=== PATIENT | female | born 1955 | race Caucasian/White ===

== ENCOUNTER 2021-04-20 00:14 | Emergency (ER) | payer OTHER ==
--- OUTSIDE RECORDS SUMMARY | 2021-04-20 00:24 | XMS REPORT | Continuity of Care Document ---
:1955 Author Organization [facility] t Address [address] [place] [address] Care Team Providers Name Role Phone JUSTO HAGEN Primary Care Physician Geraldine Mahoney Attending Clinician Unavailable Christian Attending Clinician Unavailable Geraldine Doherty Attending Clinician Unavailable Saba Rutledge Attending Clinician Unavailable Geraldine Wells Admitting Clinician Unavailable Geraldine De Anda Admitting Clinician Unavailable Christian Admitting Clinician Unavailable Payers Payer Name Policy Type Policy Number Effective Date Expiration Date S ource Problems This patient has no known problems. Allergies, Adverse Reactions, Alerts Allergy Allergy Status Severity Reaction(s) Onset Inactive Treating Comm ents Source Name Type Date Date Clinician codeine DA Active AL UNSURE 2020- [facility] [place] [facility] beeswax DA Active AL HAS EPI PEN 2020- [facility] [place] [facility] ranitidi DA Active AL UNSURE 2020- [facility] ne 7- [place] 00:[facility] e [facility] bee DA Active AL RASH 2020- [facility] pollen 7- [place] 00:[facility]: e [facility] wheat FA Active MO UPSET 2020- [facility] STOMACH 7- [place] 00:[facility]: [facility] codeine DA Active AL 2020-0 [facility] [place] 00:[facility]: e [facility] beeswax DA Active AL 2020-0 [facility] [place] 00:[facility]: e [facility] metronid DA Active AL UNKNOWN 2020-0 [facility] azole 7 [place] 00:[facility]: e [facility] ranitidi DA Active AL 2020-0 [facility] ne 09-23 [place] 00:[facility]: [facility] bee DA Active AL 2020-0 [facility] pollen 09-23 [place] 00:[facility]: [facility] wheat FA Active MO 1-0 [facility]- [place] 00:[facility]: [facility] codeine DA Active AL UNSURE 2020-0 [facility] 7-05 [place] 00:[facility]: e [facility] beeswax DA Active AL HAS EPI PEN 1-0 [facility] 7-05 [place] 00:[facility]: e [facility] ranitidi DA Active AL UNSURE 2020-0 [facility] ne 7- [place] 00:[facility]: [facility] bee DA Active AL RASH 2020-0 [facility] pollen 7- [place] 00:[facility]: e [facility] wheat FA Active MO UPSET 2020-0 [facility] STOMACH 7- [place] 00:[facility]: [facility] codeine DA Active AL 1-0 [facility] 7-05 [place] 00:[facility]: e [facility] beeswax DA Active AL 1-0 [facility] 7-05 [place] 00:[facility]: e [facility] metronid DA Active AL UNKNOWN 2020-0 [facility] azole 7- [place] 00:[facility]: e [facility] ranitidi DA Active AL 2020-0 [facility] ne 7- [place] 00:[facility]: e [facility] bee DA Active AL 2020-0 [facility] pollen 7-05 [place] 00[facility]: e [facility] wheat FA Active MO 1-0 [facility] 7-05 [place] 00:[facility]: e [facility] codeine DA Active AL UNSURE 1-0 [facility] 6-08 [place] 00:[facility]: e [facility] beeswax DA Active AL HAS EPI PEN 1-0 [facility] 6-08 [place] 00:[facility]: e [facility] ranitidi DA Active AL UNSURE 2020-0 [facility] ne 6-08 [place] 00:[facility]: e [facility] bee DA Active AL RASH 2020-0 [facility] pollen 6- [place] 00:[facility]: e [facility] wheat FA Active MO UPSET 2020-0 [facility] STOMACH 6- [place] 00:[facility]: e [facility] codeine DA Active AL 2020-0 [facility] 6-08 [place] 00:[facility]: e [facility] beeswax DA Active AL 2020-0 [facility] 6-08 [place] 00:[facility]: e [facility] metronid DA Active AL UNKNOWN 2020-0 [facility] azole 6- [place] 00:00: e [facility] ranitidi DA Active AL 2020-0 [facility] ne 6- [place] 00:[facility]: e [facility] bee DA Active AL 2020-0 [facility] pollen 6- [place] 00:00: e [facility] wheat FA Active MO 2020-0 [facility] 6-08 [place] 00:[facility]: e [facility] codeine DA Active AL 2020-1 [facility] 2-03 [place] 00:00: e [facility] beeswax DA Active AL 2020-1 [facility] 2-03 [place] 00:[facility]: e [facility] metronid DA Active AL UNKNOWN 2020-1 [facility] azole 2-03 [place] 00:00: e [facility] ranitidi DA Active AL 2020-1 [facility] ne 2-03 [place] 00:[facility]: e [facility] bee DA Active AL 2020-1 [facility] pollen 2-03 [place] 00:00: e [facility] wheat FA Active MO 2020-1 [facility] 2-03 [place] 00:00: e [facility] codeine DA Active AL UNSURE 2020-1 [facility] 2-03 [place] 00:00: e [facility] beeswax DA Active AL HAS EPI PEN 2020-1 [facility] 2-03 [place] 00:00: e [facility] ranitidi DA Active AL UNSURE 2020-1 [facility] ne 2-03 [place] 00:00: e [facility] bee DA Active AL RASH 2020-1 [facility] pollen 2-03 [place] 00:[facility]: e [facility] wheat FA Active MO UPSET 2020-1 [facility] STOMACH 2-03 [place] 00:[facility]: e [facility] codeine DA Active AL 2020-1 [facility] 0-20 [place] 00:[facility]: e [facility] beeswax DA Active AL 2020-1 [facility] 0-20 [place] 00:[facility]: e [facility] metronid DA Active AL UNKNOWN 2020-1 [facility] azole 0-20 [place] 00:00: e [facility] ranitidi DA Active AL 2020-1 [facility] ne 0-20 [place] 00:[facility]: e [facility] bee DA Active AL 2020-1 [facility] pollen 0-20 [place] 00:00: e [facility] wheat FA Active MO 2020-1 [facility] 0-20 [place] 00:[facility]: e [facility] codeine DA Active AL UNSURE 2020-1 [facility] 0-20 [place] 00:[facility]: e [facility] beeswax DA Active AL HAS EPI PEN 2020-1 [facility] 0-20 [place] 00:[facility]: e [facility] ranitidi DA Active AL UNSURE 2020-1 [facility] ne 0-20 [place] 00:00: e [facility] bee DA Active AL RASH 2020-1 [facility] pollen 0-20 [place] 00:[facility]: e [facility] wheat FA Active MO UPSET 2020-1 [facility] STOMACH 0-20 [place] 00:00: e [facility] wheat FA Active MO 2020-0 [facility] 4-03 [place] 00:00: e [facility] wheat FA Active MO UPSET 2020-0 [facility] STOMACH 4-03 [place] 00:[facility]: e [facility] codeine DA Active AL 2020-0 [facility] 3-06 [place] 00:00: e [facility] beeswax DA Active AL 2020-0 [facility] 3-06 [place] 00:[facility]: e [facility] metronid DA Active AL UNKNOWN 2020-0 [facility] azole 3-06 [place] 00:00: e [facility] ranitidi DA Active AL 2020-0 [facility] ne 3-06 [place] 00:[facility]: e [facility] bee DA Active AL 2020-0 [facility] pollen 3-06 [place] 00:00: e [facility] codeine DA Active AL UNSURE 2020-0 [facility] 3-06 [place] 00:00: e [facility] beeswax DA Active AL HAS EPI PEN 2020-0 [facility] 3-06 [place] 00:00: e [facility] ranitidi DA Active AL UNSURE 2020-0 [facility] ne 3-06 [place] 00:[facility]: e [facility] bee DA Active AL RASH 2020-0 [facility] pollen 3-06 [place] 00:00: e [facility] metronid DA Active AL 2019-0 [facility] azole 7-16 [facility] 00:00: Helms 00 [facility] ranitidi DA Active AL 2019-0 [facility] ne 7-16 [facility] 00:00: Helms 00 [facility] bee DA Active AL 2019-0 [facility] pollen 7-16 [facility] 00:00: Helms 00 [facility] codeine DA Active AL UNSURE 2019-0 [facility] 7-16 [place] 00:[facility]: e [facility] beeswax DA Active AL HAS EPI PEN 2019-0 [facility] 7-16 [place] 00:00: e [facility] ranitidi DA Active AL UNSURE 2019-0 [facility] ne 7-16 [place] 00:00: e [facility] bee DA Active AL RASH 2019-0 [facility] pollen 7-16 [place] 00:00: e [facility] codeine DA Active AL 2019-0 [facility] 7-16 [facility] 00:00: Helms 00 [facility] beeswax DA Active AL 2019-0 [facility] 7-16 [facility] 00:00: Helms 00 [facility] codeine DA Active AL 2019-0 [facility] 3-15 [place] 00:00: e [facility] beeswax DA Active AL 2019-0 [facility] 3-15 [place] 00:00: e [facility] metronid DA Active AL 2019-0 [facility] azole 3-15 [place] 00:00: e [facility] ranitidi DA Active AL 2019-0 [facility] ne 3-15 [place] 00:00: e [facility] bee DA Active AL 2019-0 [facility] pollen 3-15 [place] 00:00: e [facility] clindamy DA Active AL 2019-0 [facility] petra 3-15 [place] 00:00: e [facility] codeine DA Active AL 2019-0 [facility] 2-07 [place] 00:00: e 00 [facility] beeswax DA Active AL 2019-0 [facility] 2-07 [place] 00:00: e 00 [facility] metronid DA Active AL 2019-0 [facility] azole 2-07 [place] 00:00: e 00 [facility] ranitidi DA Active AL 2019-0 [facility] ne 2-07 [place] 00:00: e [facility] bee DA Active AL 2019-0 [facility] pollen 2- [place] 00:00: e [facility] codeine DA Active AL 2019-0 [facility] 1- [place] 00:00: e 00 [facility] beeswax DA Active AL 2019-0 [facility] - [place] 00:[facility]: e [facility] metronid DA Active AL 2019-0 [facility] azole - [place] 00:[facility]: e [facility] ranitidi DA Active AL 2019-0 [facility] ne 04-01 [place] 00:[facility]: e [facility] bee DA Active AL 2019-0 [facility] pollen 04-01 [place] 00:[facility]: e [facility] Codeine Allergy Active SEE THINGS 2019-[address] [facility] [facility] [place] Ranitidi Allergy Active ORGANS 2019-[address] [facility] ne to SWELLED UP 03-12 [facility] 00:00: Patient e 00 [facility] [place] BEE Allergy Active Severe ANAPHYLATIC 2018-[address] [facility] STINGS to 03-12 [facility] 00:00: Patient e 00 [facility] [place] codeine DA Active AL 2018-1 [facility] 2[facility]03 [place] 00:[facility]: e [facility] beeswax DA Active AL 2018-1 [facility] 2-03 [place] 00:00: e 00 [facility] metronid DA Active AL 2018-1 [facility] azole 2- [place] 00:00: e [facility] ranitidi DA Active AL 2018-1 [facility] ne 2- [place] 00:00: e [facility] bee DA Active AL 2018-1 [facility] pollen 2-03 [place] 00:00: e 00 [facility] codeine DA Active AL 2018-1 [facility] 0-12 [place] 00:00: e 00 [facility] beeswax DA Active AL 2018-1 [facility] 0-12 [place] 00:00: e 00 [facility] metronid DA Active AL 2018-1 [facility] azole 0-12 [place] 00:00: e [facility] ranitidi DA Active AL 2018-1 [facility] ne 0-12 [place] 00:00: e [facility] bee DA Active AL 2018-1 [facility] pollen 0-12 [place] 00:00: e 00 [facility] Not DA Active U 2018-1 [facility] Converte 0-12 [place] 476. 00:00: e See 00 [facility] Not DA Active U 2018-1 [facility] Converte 0-12 [place] 551. 00:00: e See 00 [facility] codeine DA Active AL 2018-1 [facility] 0-06 [place] 00:00: e 00 [facility] beeswax DA Active AL 2018-1 [facility] 0-06 [place] 00:00: e 00 [facility] metronid DA Active AL 2018-1 [facility] azole 0-06 [place] 00:00: e 00 [facility] ranitidi DA Active AL 2018-1 [facility] ne 0-06 [place] 00:00: e [facility] bee DA Active AL 2018-1 [facility] pollen 0-06 [place] 00:00: e 00 [facility] Not DA Active U 2018-1 [facility] Converte 0-06 [place] 476. 00:00: e See 00 [facility] Not DA Active U 2018-1 [facility] Converte 0-06 [place] 551. 00:00: e See 00 [facility] CODEINE DA Active AL 2018-1 [facility] 0-06 [place] 00:[facility]: e [facility] FLAGYL DA Active AL 2018-1 [facility] 0-06 [place] 00:[facility]: e [facility] ZANTAC DA Active AL 2018-1 [facility] 0-06 [place] 00:00: e [facility] codeine DA Active AL 2018-0 [facility] 8-28 [place] 00:00: e 00 [facility] beeswax DA Active AL 2018-0 [facility] 8-28 [place] 00:00: e [facility] ranitidi DA Active AL 2018-0 [facility] ne 8-28 [place] 00:00: e 00 [facility] bee DA Active U 2018-0 [facility] pollen 8-28 [place] 00:00: e 00 [facility] codeine DA Active U 2002-0 [facility] 8-10 [place] 00:00: e 00 [facility] ranitidi DA Active U 2002-0 [facility] ne 8-10 [place] 00:00: e 00 [facility] metronid DA Active U 2002-0 [facility] azole 8-10 [place] 00:00: e 00 [facility] Not DA Active U 2002-0 [facility] Converte 8-10 [place] 476. 00:00: e See 00 [facility] Not DA Active U 2001-0 [facility] Converte 8-10 [facility] d 551. 00:00: e See 00 [facility] CODEINE DA Active U 2001-0 [facility] 8-10 [facility] 00:00: e 00 [facility] FLAGYL DA Active U 2001-0 [facility] 8-10 [facility] 00:00: e 00 [facility] No Known DA Active U 2001- [facility] Contrast 8-10 [facility] Allergie 00:00: e s 00 [facility] No Known DA Active U 2001- [facility] Food 8-10 [facility] Allergie 00:00: e s 00 [facility] No Known DA Active U 2001- [facility] Other 8-10 [facility] Allergie 00:00: e s 00 [facility] Center ZANTAC DA Active U 2001- [facility] 8-10 [facility] 00:00: e 00 [facility] Center Medications This patient has no known medications. Procedures This patient has no known procedures. Encounters Start End Encounter Admission Attending Care Care Encounter Source Date/Time Date/Time Type Type Clinicians Facility Department ID 2021-03-30 Outpatient [facility] [id number] 12[facility]47:57 [id number] 2021-03-30 Outpatient [facility] [id number] 12:37:54 [id number] [facility] 2021-03-30 Outpatient [facility] [id number] 12:35:27 [id number] [facility] 2021-03-30 Outpatient [facility] [id number] 12:27:11 [id number] [facility] 2020-08-01 Inpatient [facility] LFA[facility] [id number] [facility] 13:30:00 [id number] [facility] 2020-02-05 Inpatient [facility] FLAKO [id number] [facility] 06:30:00 [id number] [facility] 2019-12-23 Inpatient [facility] [id number] [facility] 23:35:00 [id number] [facility] 2019-12-12 Inpatient [facility] [id number] [facility] 14:14:00 [id number] [facility] 2019-07-10 Inpatient [facility] FERS [id number] [facility] 18:43:00 [id number] [facility] 2019-06-16 Inpatient [facility] [id number] [facility] 17:01:00 [id number] [facility] 2019-06-06 Inpatient [facility] FLAKO [id number] [facility] 10:14:00 [id number] [facility] 2019-05-18 Inpatient [facility] FLAKO [id number] [facility] 14:02:00 [id number] [facility] 2019-05-09 Inpatient [facility] [id number] [facility] 09:07:00 [id number] [facility] 2020-12-15 2020-12-15 Outpatient Denzel, [facility] USN [id number] [facility] 09:00:00 09:00:00 Luiza [id number] [facility] 2020-12-15 2020-12-15 Outpatient ADRIEL Mahoney, [facility] USN [id number] [facility] 07:54:00 07:54:00 Luiza 41 [facility] 2020-10-15 2020-10-15 Outpatient ADRIEL Mahoney, [facility] USN [id number] [facility] 09:29:00 09:29:00 Luiza [id number] [facility] 2020-10-14 2020-10-14 Inpatient ADRIEL Mahoney, [facility] USN [id number] [facility] 10:00:00 10:00:00 Luiza [id number] [facility] 2020-09-23 2020-09-24 Inpatient EM Christian, [facility] MED [id number] [facility] 10:54:00 15:57:00 Yasmani [id number] [facility] 2020-09-06 2020-09-07 Emergency EM Chas, [facility] FLAKO [id number] [facility] 21:34:00 07:00:00 Kevin [id number] [facility] 2020-08-10 2020-08-10 Emergency EM Aamir, [facility] FLAKO [id number] [facility] 13:16:00 14:31:00 Winston [id number] [facility] 2020-02-17 2020-02-17 Outpatient [facility] [id number] [facility]. 19:30:00 19:30:00 -[id number] Lu s - Patient s [facility] 2018-03-12 2018-03-12 Departed [facility] [id number] [facility]. 10:00:00 12:45:00 Emergency 68 [facility] Results Test Description Test Time Test Comments Results Result Sour e Comments - US TRANSVAGINAL 2020-12-15 NON OB 10:45:00 [facility] 1955 Sex: F * Name: CASSANDRA WHITT FRANCIS [facility] : 1955 Age/S: 65 / F [address] [facility] [id number] Loc: [place] [address] Phys: Luiza Mahoney MD Acct: [id number] Dis Date: Status: REG CLI PHONE #: [phone] Exam Date: 12/15/2020 0934 FAX #: [phone] Reason: EXAMS: CPT CODE: [id number] [place] [address] HISTORY: Pelvic pain. COMPARISON: None available. Location: [facility]. Transabdominal and transvaginal (for better endometrial and ovarian evaluation) pelvic ultrasound with color and Doppler flow and grayscale imaging. Anteverted uterus measured 4.4 x 2.4 x 2.7 cm. Echogenicity and texture is normal. Fluid distended endometrial canal is normal at 2.4 mm. No fibroids. Echogenicity and texture is normal. Visualized cervix is normal. Color Doppler flow in either ovary with normal spectral waveform. Left ovary measured 1 x 0.8 x 0.9 cm. Right ovary measured 2 x 1.2 x 1.8 cm. No free fluid. IMPRESSION: Normal endometrium at 2.4 mm with trace fluid within the endometrial canal. No fibroids. Color and Doppler flow in either ovary with normal spectral waveform. at 1045 Reported and signed by: Aristides Giordano M.D. CC: Luiza Mahoney MD; Amish De Anda MD Technologist: MER BELTRAN RT(R),[facility] Trnmib Date/Time: 12/15/2020 (813) t.[email or web address] Orig Print D/T: S: 12/15/2020 (1046) Probe: [id number] PAGE 1 Signed Report - US PELVIS 2020-12-15 COMPLETE 10:45:00 [facility])Name: DORIAN VALDES CASSANDRAANGELA BLANCO : 1955 Sex: F * Name: CASSANDRA WHITT [facility] : 1955 Age/S: 65 / F [address] [facility] Unit #: [id number] Loc: [place] [address] Phys: Luiza Mahoney MD Acct: [id number] Dis Date: Status: REG CLI PHONE #: [phone] Exam Date: 12/15/2020 0900 FAX #: [phone] Reason: R10.2 EXAMS: CPT CODE: [id number] US PELVIS COMPLETE 63538 HISTORY: Pelvic pain. COMPARISON: None available. Location: [facility]. Transabdominal and transvaginal (for better endometrial and ovarian evaluation) pelvic ultrasound with color and Doppler flow and grayscale imaging. Anteverted uterus measured 4.4 x 2.4 x 2.7 cm. Echogenicity and texture is normal. Fluid distended endometrial canal is normal at 2.4 mm. No fibroids. Echogenicity and texture is normal. Visualized cervix is normal. Color Doppler flow in either ovary with normal spectral waveform. Left ovary measured 1 x 0.8 x 0.9 cm. Right ovary measured 2 x 1.2 x 1.8 cm. No free fluid. IMPRESSION: Normal endometrium at 2.4 mm with trace fluid within the endometrial canal. No fibroids. Color and Doppler flow in either ovary with normal spectral waveform. at 1045 Reported and signed by: Aristides Giordano M.D. CC: Luiza Mahoney MD; Amish De Anda MD Technologist: MER BELTRAN RT(R),[facility] Date/Time: 12/15/2020 (1045) [email or web address] Orig Print D/T: S: 12/15/2020 (1048) Probe: PAGE 1 Signed Report - US PELVIS 2020-10-15 COMPLETE 11:39:00 [facility])Name: CASSANDRA WHITT [facility] : 1955 Sex: F * Name: CASSANDRA WHITT [facility]ANCIS [facility] : 1955 Age/S: 65 / F [address] [facility] Unit #: [id number] Loc: [place] [address] Phys: Luiza Mahoney MD Acct: [id number] Dis Date: Status: REG CLI PHONE #: [phone] Exam Date: 10/15/2020 1037 FAX #: [phone] Reason: R10.2 EXAMS: CPT CODE: [id number] US PELVIS COMPLETE 13555 HISTORY: Pelvic pain. COMPARISON: None available. Location: [facility]. Transabdominal and transvaginal (for better endometrial and ovarian evaluation) pelvic ultrasound with color and Doppler flow and grayscale imaging. Uterus is anteverted and it is measuring 6.3 x 2.2 x 3.2 cm. Echogenicity and texture is normal. Endometrial thickness of 2 mm is normal for postmenopausal woman. No fibroids. Visualized portions of the cervix are normal. Color and Doppler flow in the right ovary. Right ovary measured 1.4 x 0.7 x 1.6 cm with irregular cyst measuring 1 cm. Left ovary measured 1.5 x 0.9 x 1.2 cm. No free fluid. IMPRESSION: Normal endometrium at 2 mm. No fibroids. Unremarkable ovaries with 1 cm cyst with irregular margins on the right which is unusual for postmenopausal woman. No free fluid. at 1139 Reported and signed by: Aristides Giordano M.D. CC: Luiza Mahoney MD; Amish De Anda MD Technologist: VIVIEN SILVA RT(R),[facility] Trnscb Date/Time: 10/15/2020 (1139) [email or web address] Orig Print D/T: S: 10/15/2020 (1142) Probe: PAGE 1 Signed Report - US TRANSVAGINAL 2020-10-15 NON OB 11:39:00 [facility])Name: CASSANDRA WHITT : 1955 Sex: F * Name: CASSANDRA WHITT [facility] : 1955 Age/S: 65 / F [address] [facility] Unit #: [id number] Loc: [place] [address] Phys: Luiza Mahoney MD Acct: [id number] Dis Date: Status: REG CLI PHONE #: [phone] Exam Date: 10/15/2020 1037 FAX #: [phone] Reason: EXAMS: CPT CODE: [id number] [place] [address] HISTORY: Pelvic pain. COMPARISON: None available. Location: [facility]. Transabdominal and transvaginal (for better endometrial and ovarian evaluation) pelvic ultrasound with color and Doppler flow and grayscale imaging. Uterus is anteverted and it is measuring 6.3 x 2.2 x 3.2 cm. Echogenicity and texture is normal. Endometrial thickness of 2 mm is normal for postmenopausal woman. No fibroids. Visualized portions of the cervix are normal. Color and Doppler flow in the right ovary. Right ovary measured 1.4 x 0.7 x 1.6 cm with irregular cyst measuring 1 cm. Left ovary measured 1.5 x 0.9 x 1.2 cm. No free fluid. IMPRESSION: Normal endometrium at 2 mm. No fibroids. Unremarkable ovaries with 1 cm cyst with irregular margins on the right which is unusual for postmenopausal woman. No free fluid. at 1139 Reported and signed by: Aristides Giordano M.D. 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: COLLECT 3 HOURS AFTER PREVIOUS [id number] 22:49:00 Test Item Value Reference Range Interpretation Comments TROPONIN-I (test code = TROPI) 0.013 ng/mL 0-0.045 N COMMENTS TO HOT PRESS OPERATOR: COLLECT 3 HOURS AFTER PREVIOUS SAMPLELIPID PROFILE (CORONARY RISK)2020-09-23 22:48:00 Test Item Value Reference Range Interpretation Comments TRIGLYCERIDES (test 113 mg/dL 20-150 N code = TRIG) CHOLESTEROL (test code 118 mg/dL 0-200 N = CHOL) CHOLESTEROL/HDL RATIO 3.0 RATIO 0-4.9 N RISK A SSOCIATED WITH (test code = CHOLHDL) CHOL/H DL RATIOS: Risk M isiah Female1/[address] RAGE 3.43 3.27AVERAGE 4.97 4.4 [address] RAGE 23.39 11.04 REFERENCE VALUE IS RELATED TO RISK LEVELS ASRECOMMENDED B Y THE ADALBERTO. HEART, MARK G, AND BLOOD INST. HDL CHOLESTEROL (test 32 mg/dL 40-60 L code = HDL) LIPOPROTEIN LDL (test 72 mg/dL 100-129 L ====== code = LDL) ======= Referen ce Interval: mg/dL mmol/L--------- ------- ------- ------O ptimal <100 <2.6Near/above optimal 100-12 9 2.6-3.3Borderl ine High 130-159 3.4-4.1High 160 -189 4.1-4.9Very High >=190 >=4.9========= This LDL result is a direct measurement.=== ====== COVID 19 INHOUSE [id number] 13:22:00 Test Item Value Reference Range Interpretation Comments COVID 19 INHOUSE AG (test code = NEGATIVE NEGATIVE [id number]) BASIC METABOLIC [id number] 12:24:00 Test Item Value Reference Range Interpretation Comments SODIUM (test code = 142 mmol/L 136-145 N NA) POTASSIUM (test code 3.9 mmol/L 3.5-5.1 N = K) CHLORIDE (test code 112.0 mmol/L 98-107 H = CL) CARBON DIOXIDE (test 26.0 mmol/L 21-32 N code = CO2) ANION GAP (test code 7.9 10-20 L = GAP) GLUCOSE (test code = 90 mg/dL 74-106 N GLU) BLOOD UREA NITROGEN 15 mg/dL 7-18 N (test code = BUN) GLOMERULAR > 60 mL/min See_Comment Estimated GFR b y FILTRATION RATE using Modifi ed MDRD (test code = GFR) formula.[facility] kidney disease is defined as eith er kidney damageor GFR <60 mL/min/1.73 m2 for >3 months. [Automated mess age] The system [employer] generated this result transmitted ref erence range: >=60. Th e reference range was not used to int erpret this result as normal/abnormal . CREATININE (test 0.80 mg/dL 0.55-1.02 N Note arechiga ge in code = CREAT) reference rang e due to change in reagent. BUN/CREATININE RATIO 17.9 10-20 N (test code = BUN/CREA) CALCIUM (test code = 9.0 mg/dL 8.5-10.1 N CA) [id number] 12:24:00 Test Item Value Reference Range Interpretation Comments TROPONIN-I (test code = TROPI) 0.011 ng/mL 0-0.045 N - XR CHEST 1 [id number] 11:47:00 [facility]Name: CASSANDRA WHITT : 1955 Sex: F FAX: Stuart Saldivar [phone] [place]: St: REG FAX: Amish Lai MD [phone] Name: CASSANDRA WHITT [facility] : 1955 Age/S: 65/F [address] [facility] Unit #: [id number] L oc: [place] [address] Phys: Stuart Spivey MD Acct: [id number] Dis Date: Status: REG ER PHONE #: [phone] Exam Date: 09/23/2020 1140 FAX #: [phone] Reason: CHEST PAIN EXAMS: CPT CODE: [id number] XR CHEST 1 V 29410 HISTORY: Chest pain. COMPARISON: December 12, 2019. Location: [facility]. No acute infiltrates, effusion or congestion is noted. Hyperinflation.Right [employer] shunt catheter noted again the tip coiled within the left upper quadrant. The cardiacand mediastinal silhouette are within normal limits. IMPRESSION: No acute infiltrates, effusion or congestion. at 114 Reported and signed by: Aristides Giordano M.D. CC: Stuart Spivey MD; Amish De Anda MD Technologist: RT ERICKA(R) Trnscrd Date/Time/By: 09/23/2020 (2175) : By: [email or web address] Orig Print D/T: S: 09/23/2020 (5382) PAGE 1 Signed ReportCBC W/O [id number] 11:36:00 Test Item Value Reference Range Interpretation Comments WHITE BLOOD CELL (test code = 8.3 K/mm3 4.5-12.5 N WBC) RED BLOOD CELL (test code = 4.09 mill/mm3 3.7-5.2 N RBC) HEMOGLOBIN (test code = HGB) 13.7 gram/dL 11.5-15.5 N HEMATOCRIT (test code = HCT) 40.7 % 36.0-46.0 N MEAN CELL VOLUME (test code = 99.5 fL 80-98 H MCV) MEAN CELL HGB (test code = MCH) 33.5 picogram 27.0-33.0 H MEAN CELL HGB CONCETRATION 33.7 gram/dL 33.0-36.0 N (test code = MCHC) RED CELL DISTRIBUTION WIDTH 12.1 % 11.6-16.2 N (test code = RDW) PLATELET COUNT (test code = 233 K/mm3 150-450 N PLT) MEAN PLATELET VOLUME (test code 9.9 fL 6.7-11.0 N = MPV) URINALYSIS [id number] 03:38:00 Test Item Value Reference Range Interpretation Comments UA COLOR (test code = LIGHT YELLOW YELLOW COLU) UA APPEARANCE (test code CLEAR CLEAR = APPU) UA GLUCOSE DIPSTICK (test NEGATIVE mg/dL NEGATIVE code = DGLUU) UA BILIRUBIN DIPSTICK NEGATIVE mg/dL NEGATIVE (test code = BILU) UA KETONE DIPSTICK (test NEGATIVE mg/dL NEGATIVE code = KETU) UA SPECIFIC GRAVITY (test 1.003 1.001-1.035 code = SGU) UA BLOOD DIPSTICK (test Negative mg/dL NEGATIVE code = KELVIN) UA PH DIPSTICK (test code 6.5 5.0-8.0 = LAURA) UA PROTEIN DIPSTICK (test NEGATIVE mg/dL NEGATIVE code = PROU) UA UROBILINIOGEN DIPSTICK Normal mg/dL NEGATIVE (test code = URO) UA NITRITE DIPSTICK (test NEGATIVE NEGATIVE code = LARRY) UA LEUKOCYTE ESTERASE W NEGATIVE Ruchi/uL NEGATIVE REFLEX (test code = LEUUR) UA WBC (test code = WBCU) 0-5 per HPF 0-5 UA RBC (test code = RBCU) 0-2 #/HPF 0-5 UA EPITHELIAL CELLS (test Rare (0-1/hpf) per FEW code = EPIU) HPF UA BACTERIA (test code = FEW #/HPF NONE A BACU) Urine Source? Clean CatchBASIC METABOLIC [id number] 00:52:00 Test Item Value Reference Range Interpretation Comments SODIUM (test code = 134 mmol/L 136-145 L NA) POTASSIUM (test code 3.9 mmol/L 3.5-5.1 N = K) CHLORIDE (test code 103.0 mmol/L 98-107 N = CL) CARBON DIOXIDE (test 24.0 mmol/L 21-32 N code = CO2) ANION GAP (test code 10.9 10-20 N = GAP) GLUCOSE (test code = 102 mg/dL 74-106 N GLU) BLOOD UREA NITROGEN 8 mg/dL 7-18 N (test code = BUN) GLOMERULAR > 60 mL/min See_Comment Estimated GFR b y FILTRATION RATE using Modifi ed MDRD (test code = GFR) formula.Ch ronic kidney disease is defined as eith er kidney damageor GFR <60 mL/min/1.73 m2 for >3 months. [Automated mess age] The system [employer] generated this result transmitted ref erence range: >=60. Th e reference range was not used to int erpret this result as normal/abnormal . CREATININE (test 0.90 mg/dL 0.55-1.02 N Note arechiga ge in code = CREAT) reference rang e due to change in reagent. BUN/CREATININE RATIO 9.1 10-20 L (test code = BUN/CREA) CALCIUM (test code = 9.3 mg/dL 8.5-10.1 N CA) HEPATIC FUNCTION [id number] 00:52:00 Test Item Value Reference Range Interpretation Comments TOTAL PROTEIN (test 6.8 gram/dL 6.4-8.2 N code = PROT) ALBUMIN (test code = 4.0 g/dL 3.4-5.0 N ALB) GLOBULIN (test code = 2.8 gram/dL 2.7-4.2 N GLOB) ALBUMIN/GLOBULIN RATIO 1.4 0.75-1.50 N (test code = A/G) BILIRUBIN TOTAL (test 0.50 mg/dL 0.0-1.0 N code = BILT) BILIRUBIN DIRECT (test 0.20 mg/dL 0.0-0.20 N code = BILD) SGOT/AST (test code = 14 IUnit/L 15-37 L AST) SGPT/ALT (test code = 13 IUnit/L 12-78 N ALT) ALKALINE PHOSPHATASE 141 IUnit/L 45-117 H Note change in TOTAL (test code = reference range due ALKP) to change in reagent. [id number] 00:52:00 Test Item Value Reference Range Interpretation Comments LIPASE (test code = LIP) 27 U/L 12.00-57.00 N [id number] 00:52:00 Test Item Value Reference Range Interpretation Comments TROPONIN-I (test code = TROPI) < 0.006 ng/mL 0-0.045 N CBC W/O [id number] 00:20:00 Test Item Value Reference Range Interpretation Comments WHITE BLOOD CELL (test code = 9.6 K/mm3 4.5-12.5 N WBC) RED BLOOD CELL (test code = 4.28 mill/mm3 3.7-5.2 N RBC) HEMOGLOBIN (test code = HGB) 14.2 gram/dL 11.5-15.5 N HEMATOCRIT (test code = HCT) 41.8 % 36.0-46.0 N MEAN CELL VOLUME (test code = 97.7 fL 80-98 N MCV) MEAN CELL HGB (test code = MCH) 33.2 picogram 27.0-33.0 H MEAN CELL HGB CONCETRATION 34.0 gram/dL 33.0-36.0 N (test code = MCHC) RED CELL DISTRIBUTION WIDTH 11.9 % 11.6-16.2 N (test code = RDW) PLATELET COUNT (test code = 196 K/mm3 150-450 N PLT) MEAN PLATELET VOLUME (test code 9.9 fL 6.7-11.0 N = MPV) - XR FOOT 3 + V [id number] 14:32:00 [facility]Name: CASSANDRA WHITT : 1955 Sex: F FAX: Catie Stephens NP [place]: St: REG FAX: Amish Lai MD [phone] Name: CASSANDRA WHITT [facility] : 1955 Age/S: 64/F [address] [facility] Unit #: [id number] L oc: [place] [address] Phys: Catie Stephens NP Acct: [id number] Dis Date: Status: REG ER PHONE #: [phone] Exam Date: 08/10/2020 [facility] FAX #: [phone] Reason: R heel pain EXAMS: CPT CODE: [id number] XR FOOT 3 + [place] [address] CLINICAL HISTORY: R heel pain TECHNIQUE: AP, oblique, and lateral views of the left foot COMPARISON: None FINDINGS: No acute fracture or dislocation. Bony trabecular pattern is unremarkable. No cortical destruction or periosteal reaction. Joint spaces are preserved. Ankle mortise is appropriately aligned. Regional soft tissues are unremarkable. IMPRESSION: No radiographically evident bony abnormalities of the left foot. Location: [facility] at 1432 Reported and signed by: Seth Darling MD CC: Catie Stephens ATTENDANCE OFFICER; Amish De Anda MD Technologist: Doris Londono RT(R); STUDENT TECHNOLOGIST Trnkhai Date/Time/By: 08/10/2020 (5420): By: [email or web address] Orig Print D/T: S: 08/10/2020 (6629) PAGE 1 Signed ReportURINALYSIS [id number] 15:58:00 Test Item Value Reference Range Interpretation Comments UA COLOR (test code = COLU) Light-Yellow YELLOW UA APPEARANCE (test code = CLEAR CLEAR APPU) UA GLUCOSE DIPSTICK (test NEGATIVE mg/dL NEGATIVE code = DGLUU) UA BILIRUBIN DIPSTICK (test NEGATIVE mg/dL NEGATIVE code = BILU) UA KETONE DIPSTICK (test code NEGATIVE mg/dL NEGATIVE = KETU) UA SPECIFIC GRAVITY (test 1.006 1.001-1.035 code = SGU) UA BLOOD DIPSTICK (test code Negative mg/dL NEGATIVE = KELVIN) UA PH DIPSTICK (test code = 6.0 5.0-8.0 LAURA) UA PROTEIN DIPSTICK (test NEGATIVE mg/dL NEGATIVE code = PROU) UA UROBILINIOGEN DIPSTICK Normal mg/dL NEGATIVE (test code = URO) UA NITRITE DIPSTICK (test NEGATIVE NEGATIVE code = LARRY) UA LEUKOCYTE ESTERASE W NEGATIVE Ruchi/uL NEGATIVE REFLEX (test code = LEUUR) UA WBC (test code = WBCU) 0-5 per HPF 0-5 UA RBC (test code = RBCU) 0-2 #/HPF 0-5 UA EPITHELIAL CELLS (test FEW per HPF FEW code = EPIU) UA BACTERIA (test code = FEW #/HPF NONE A BACU) Urine Source? Clean CatchDRUGS OF ABUSE SCREEN [id number] 15:58:00 Test Item Value Reference Range Interpretation Comments URN COCAINE (test code = NEGATIVE See_Comment [A utomated message] COCAURN) The system whic h generated this result transmitted ref erence range: <300 ng/ mL. The reference r jeffery was not used to interpret this result as normal/abnor mal. URN CANNABINOIDS (test POSITIVE See_Comment [Aut omated message] code = CANNABURN) The system which generated this result transmitted ref erence range: <50 ng/m L. The reference range was not used to int erpret this result as normal/abnormal . URN AMPHETAMINE (test NEGATIVE See_Comment [Auto mated message] code = AMPHETURN) The system which generated this result transmitted ref erence range: <1000 ng /mL. The reference r jeffery was not used to interpret this result as normal/abnor mal. URN BARBITURATE (test NEGATIVE See_Comment [Auto mated message] code = BARBITURN) The system which generated this result transmitted ref erence range: <200 ng/ mL. The reference r jeffery was not used to interpret this result as normal/abnor mal. URN BENZODIAZEPINE (test NEGATIVE See_Comment [A utomated message] code = BENZOURN) The system which generated this result transmitted ref erence range: <200 ng/ mL. The reference r jeffery was not used to interpret this result as normal/abnor mal. URN OPIATES (test code = NEGATIVE See_Comment [A utomated message] OPIATURN) The system [employer] generated this result transmitted ref erence range: <300 ng/ mL. The reference r jeffery was not used to interpret this result as normal/abnor mal. URN PHENCYCLIDINE (PCP) NEGATIVE See_Comment [Au tomated message] (test code = PHENCURN) The s ystem which generated this result transmitted ref erence range: <25 ng/m L. The reference range was not used to int erpret this result as normal/abnormal . URN METHADONE (test code NEGATIVE See_Comment [A utomated message] = METHAURN) The system [employer] generated this result transmitted ref erence range: <300 ng/ mL. The reference r jeffery was not used to interpret this result as normal/abnor mal. Urine Source? Clean CatchBASIC METABOLIC [id number] 15:58:00 Test Item Value Reference Range Interpretation Comments SODIUM (test code = 133 mmol/L 136-145 L NA) POTASSIUM (test code 4.4 mmol/L 3.5-5.1 N = K) CHLORIDE (test code 101.0 mmol/L 98-107 N = CL) CARBON DIOXIDE (test 24.0 mmol/L 21-32 N code = CO2) ANION GAP (test code 12.4 10-20 N = GAP) GLUCOSE (test code = 88 mg/dL 74-106 N GLU) BLOOD UREA NITROGEN 5 mg/dL 7-18 L (test code = BUN) GLOMERULAR > 60 mL/min See_Comment Estimated GFR b y FILTRATION RATE using Modifi ed MDRD (test code = GFR) formula.[facility] kidney disease is defined as eith er kidney damageor GFR <60 mL/min/1.73 m2 for >3 months. [Automated mess age] The system [employer] generated this result transmitted ref erence range: >=60. Th e reference range was not used to int erpret this result as normal/abnormal . CREATININE (test 0.70 mg/dL 0.55-1.02 N Note arechiga ge in code = CREAT) reference rang e due to change in reagent. BUN/CREATININE RATIO 7.0 10-20 L (test code = BUN/CREA) CALCIUM (test code = 9.0 mg/dL 8.5-10.1 N CA) HEPATIC FUNCTION [id number] 15:58:00 Test Item Value Reference Range Interpretation Comments TOTAL PROTEIN (test 7.5 gram/dL 6.4-8.2 N code = PROT) ALBUMIN (test code = 4.4 g/dL 3.4-5.0 N ALB) GLOBULIN (test code = 3.1 gram/dL 2.7-4.2 N GLOB) ALBUMIN/GLOBULIN RATIO 1.4 0.75-1.50 N (test code = A/G) BILIRUBIN TOTAL (test 0.80 mg/dL 0.0-1.0 N code = BILT) BILIRUBIN DIRECT (test 0.10 mg/dL 0.0-0.20 N code = BILD) SGOT/AST (test code = 27 IUnit/L 15-37 N AST) SGPT/ALT (test code = 32 IUnit/L 12-78 N ALT) ALKALINE PHOSPHATASE 104 IUnit/L 45-117 N Note change in TOTAL (test code = reference range due ALKP) to change in reagent. CREATINE KINASE (CK)2020-08-01 15:58:00 Test Item Value Reference Range Interpretation Comments CREATINE KINASE (CK) (test code = 197 IUnit/L 26-208 N CK) [id number] 15:58:00 Test Item Value Reference Range Interpretation Comments TROPONIN-I (test code = TROPI) < 0.006 ng/mL 0-0.045 N [id number] 15:58:00 Test Item Value Reference Range Interpretation Comments ALCOHOL (test code < 3 mg/dL 0.0-3.0 N --------- --------INTERPRE = ALC) TIVE DATA NOTE: POSITIVE SCREEN ING RESULTS SHOULD BE CONSIDERED PRESUMPTIVE.WHE N COLLECTED FOR M EDICAL PURPOSES ONLY. SPECIMEN WILL NOTBE LUIS ECTED BY CHAIN OF CUSTOD Y.IF A CONFIRMATION OF POSITIVE RESULTS IS RACIEL RED, ACONFIRMATION T EST MUST BE REQUESTED BY THE PHYSICIAN AT AN ADDITIONAL CHARGE TO THE P ATIENT. B-TYPE NATRIURETIC [id number] 15:54:00 Test Item Value Reference Range Interpretation Comments B-TYPE NATRIURETIC PEPTIDE 31.3 pgram/mL 0-100 N (test code = BNP) URINALYSIS [id number] 15:33:00 Test Item Value Reference Range Interpretation Comments UA COLOR (test code = COLU) Light-Yellow YELLOW UA APPEARANCE (test code = CLEAR CLEAR APPU) UA GLUCOSE DIPSTICK (test NEGATIVE mg/dL NEGATIVE code = DGLUU) UA BILIRUBIN DIPSTICK (test NEGATIVE mg/dL NEGATIVE code = BILU) UA KETONE DIPSTICK (test code NEGATIVE mg/dL NEGATIVE = KETU) UA SPECIFIC GRAVITY (test 1.006 1.001-1.035 code = SGU) UA BLOOD DIPSTICK (test code Negative mg/dL NEGATIVE = KELVIN) UA PH DIPSTICK (test code = 6.0 5.0-8.0 LAURA) UA PROTEIN DIPSTICK (test NEGATIVE mg/dL NEGATIVE code = PROU) UA UROBILINIOGEN DIPSTICK Normal mg/dL NEGATIVE (test code = URO) UA NITRITE DIPSTICK (test NEGATIVE NEGATIVE code = LARRY) UA LEUKOCYTE ESTERASE W NEGATIVE Ruchi/uL NEGATIVE REFLEX (test code = LEUUR) UA WBC (test code = WBCU) 0-5 per HPF 0-5 UA RBC (test code = RBCU) 0-2 #/HPF 0-5 UA EPITHELIAL CELLS (test FEW per HPF FEW code = EPIU) UA BACTERIA (test code = FEW #/HPF NONE A BACU) Urine Source? Clean CatchDRUGS OF ABUSE SCREEN [id number] 15:33:00 Test Item Value Reference Range Interpretation Comments URN COCAINE (test code = See_Comment [A utomated message] COCAURN) The system [employer] generated this result transmitted ref erence range: <300 ng/ mL. The reference range was not used to int erpret this result as normal/abnormal . URN CANNABINOIDS (test See_Comment [Aut omated message] code = CANNABURN) The system which generated this result transmitted ref erence range: <50 ng/m L. The reference range was not used to int erpret this result as normal/abnormal . URN AMPHETAMINE (test code See_Comment [Automated message] = AMPHETURN) The system [employer] generated this result transmitted ref erence range: <1000 ng /mL. The reference r jeffery was not used to interpret this result as normal/abnor mal. URN BARBITURATE (test code See_Comment [Automated message] = BARBITURN) The system [employer] generated this result transmitted ref erence range: <200 ng/ mL. The reference range was not used to int erpret this result as normal/abnormal . URN BENZODIAZEPINE (test See_Comment [A utomated message] code = BENZOURN) The system which generated this result transmitted ref erence range: <200 ng/ mL. The reference range was not used to int erpret this result as normal/abnormal . URN OPIATES (test code = See_Comment [A utomated message] OPIATURN) The system [employer] generated this result transmitted ref erence range: <300 ng/ mL. The reference range was not used to int erpret this result as normal/abnormal . URN PHENCYCLIDINE (PCP) See_Comment [Au tomated message] (test code = PHENCURN) The s ystem which generated this result transmitted ref erence range: <25 ng/m L. The reference range was not used to int erpret this result as normal/abnormal . URN METHADONE (test code = See_Comment [Automated message] METHAURN) The system [employer] generated this result transmitted ref erence range: <300 ng/ mL. The reference range was not used to int erpret this result as normal/abnormal . Urine Source? Clean CatchDRUGS OF ABUSE SCREEN [id number] 15:30:00 Test Item Value Reference Range Interpretation Comments URN COCAINE (test code = See_Comment [A utomated message] COCAURN) The system [employer] generated this result transmitted ref erence range: <300 ng/ mL. The reference range was not used to int erpret this result as normal/abnormal . URN CANNABINOIDS (test See_Comment [Aut omated message] code = CANNABURN) The system which generated this result transmitted ref erence range: <50 ng/m L. The reference range was not used to int erpret this result as normal/abnormal . URN AMPHETAMINE (test code See_Comment [Automated message] = AMPHETURN) The system [employer] generated this result transmitted ref erence range: <1000 ng /mL. The reference r jeffery was not used to interpret this result as normal/abnor mal. URN BARBITURATE (test code See_Comment [Automated message] = BARBITURN) The system [employer] generated this result transmitted ref erence range: <200 ng/ mL. The reference range was not used to int erpret this result as normal/abnormal . URN BENZODIAZEPINE (test See_Comment [A utomated message] code = BENZOURN) The system which generated this result transmitted ref erence range: <200 ng/ mL. The reference range was not used to int erpret this result as normal/abnormal . URN OPIATES (test code = See_Comment [A utomated message] OPIATURN) The system [employer] generated this result transmitted ref erence range: <300 ng/ mL. The reference range was not used to int erpret this result as normal/abnormal . URN PHENCYCLIDINE (PCP) See_Comment [Au tomated message] (test code = PHENCURN) The s ystem which generated this result transmitted ref erence range: <25 ng/m L. The reference range was not used to int erpret this result as normal/abnormal . URN METHADONE (test code = See_Comment [Automated message] METHAURN) The system [employer] generated this result transmitted ref erence range: <300 ng/ mL. The reference range was not used to int erpret this result as normal/abnormal . Urine Source? Clean CatchURINALYSIS [id number] 15:30:00 Test Item Value Reference Range Interpretation Comments UA COLOR (test code = COLU) Light-Yellow YELLOW UA APPEARANCE (test code = CLEAR CLEAR APPU) UA GLUCOSE DIPSTICK (test NEGATIVE mg/dL NEGATIVE code = DGLUU) UA BILIRUBIN DIPSTICK (test NEGATIVE mg/dL NEGATIVE code = BILU) UA KETONE DIPSTICK (test code NEGATIVE mg/dL NEGATIVE = KETU) UA SPECIFIC GRAVITY (test 1.006 1.001-1.035 code = SGU) UA BLOOD DIPSTICK (test code Negative mg/dL NEGATIVE = KELVIN) UA PH DIPSTICK (test code = 6.0 5.0-8.0 LAURA) UA PROTEIN DIPSTICK (test NEGATIVE mg/dL NEGATIVE code = PROU) UA UROBILINIOGEN DIPSTICK Normal mg/dL NEGATIVE (test code = URO) UA NITRITE DIPSTICK (test NEGATIVE NEGATIVE code = LARRY) UA LEUKOCYTE ESTERASE W NEGATIVE Ruchi/uL NEGATIVE REFLEX (test code = LEUUR) UA WBC (test code = WBCU) per HPF 0-5 UA RBC (test code = RBCU) per HPF 0-5 UA EPITHELIAL CELLS (test per HPF Few code = EPIU) UA BACTERIA (test code = per HPF NONE BACU) Urine Source? Clean CatchCBC W/O [id number] 15:29:00 Test Item Value Reference Range Interpretation Comments WHITE BLOOD CELL (test code = 10.8 K/mm3 4.5-12.5 N WBC) RED BLOOD CELL (test code = 4.54 mill/mm3 3.7-5.2 N RBC) HEMOGLOBIN (test code = HGB) 14.8 gram/dL 11.5-15.5 N HEMATOCRIT (test code = HCT) 44.2 % 36.0-46.0 N MEAN CELL VOLUME (test code = 97.4 fL 80-98 N MCV) MEAN CELL HGB (test code = MCH) 32.6 picogram 27.0-33.0 N MEAN CELL HGB CONCETRATION 33.5 gram/dL 33.0-36.0 N (test code = MCHC) RED CELL DISTRIBUTION WIDTH 11.8 % 11.6-16.2 N (test code = RDW) PLATELET COUNT (test code = 245 K/mm3 150-450 N PLT) MEAN PLATELET VOLUME (test code 9.7 fL 6.7-11.0 N = MPV) - XR WRIST 3 + V [id number] 07:37:00 [facility] : 1955 Sex: F FAX: Amish Lai MD [phone] [place]: St: REG FAX: Shaan Lozano DO Name: CASSANDRA WHITT [facility] : 1955 Age/S: 64/F [address] [facility] Unit #: [id number] L oc: VSAIDA [place]ir[place], [place] [address] Phys: Shaan Lozano DO Acct: [id number] Dis Date: Status: REG ER PHONE #: [phone] Exam Date: 02/05/2020712 FAX #: [phone] Reason: WRIST PAIN EXAMS: CPT CODE: [id number] XR WRIST 3 + V LT [address]5834 REASON FOR EXAM: WRIST PAIN EXAM ORDER DATE: 02/05/2020 6:34 AM Ordering MRhonda: Shaan Lozano DO PROCEDURE: - XR WRIST 3 + V LTComparison:None FINDINGS: No evidence of fracture. Thejoint spaces are maintained and the arcs of Gil[place] are intact. The carpal and metacarpal bones are unremarkable. There is normal alignment of the radiocarpal joint space. The visualized bones of the hand are within normal limits. Soft tissues are within normal limits. IMPRESSION: No acute bony abnormalities of the left wrist. Location: [facility] at 0737 Reported and signed by: Seth Darling MD CC: Amish De Anda MD; Shaan Lozano DO Technologist: [place](R) Trnscrd Date/Time/By: 02/05/2020 (0 737) : By: [email or web address] Orig Print D/T: S: 02/05/2020 (0740) PAGE 1 Signed Report- XR ELBOW 3 + V LT 2020-02-05 07:35:00 [facility] LOWECASSANDRA LORA : 1955 Sex: F FAX: Amish Lai MD [phone] [place]: B St: REG FAX: Shaan Lozano DO Name: CASSANDRA WHITT [facility] : 1955 Age/S: 64/F [address] [facility] Unit #: [id number] L oc: V.LY [place], [place] [address] Phys: Shaan Lozano DO Acct: [id number] Dis Date: Status: REG ER PHONE #: [phone] Exam Date: 02/05/2020707 FAX #: [phone] Reason: ELBOW PAIN EXAMS: CPT CODE: [id number] XR ELBOW 3 + V LT 92660 CLINICAL HISTORY: SHOULDER PAIN TECHNIQUE: 3 views of the left shoulder, 6 views of the left humerus, 3 views of the left elbow. COMPARISON: None FINDINGS/ IMPRESSION: There is a comminuted fracture in the lefthumeral head. No extension to the glenohumeral joint. No other fractures are seen. Glenohumeral and acromioclavicular joints are appropriately aligned. No intra-articular bone fragment is seen. The elbow joint is also appropriately aligned. Additionally there is no elbow joint effusion. Location: [facility] at 0735 Reported and signed by: Seth Darling MD CC: Amish De Anda MD; Shaan Lozano DO Technologist: [place](R) Trnscrd Date/Time/By: 02/05/2020 (0735) : By: [email or web address] Orig Print D/T: S: 02/05/2020 (0738) PAGE 1 Signed R eport- XR HUMERUS 2 + V [id number] 07:35:00 [facility]Name: CASSANDRA WHITT : 1955 Sex: F FAX: Amish Lai MD [phone] [place]: St: [facility] FAX: Shaan Lozano DO Name: CASSANDRA WHITT [facility] : 1955 Age/S: 64/F [address] [facility]: [id number] L oc: MAX [place]irre, [place] [address] Phys: Shaan Lozano DO Acct: [id number] Dis Date: Status: REG ER PHONE #: [phone] Exam Date: 02/05/2020 0703 FAX #: [phone] Reason: ARM PAIN EXAMS: CPT CODE: [id number] XR HUMERUS 2 + V LT [address]50 CLINICAL HISTORY: SHOULDER PAIN TECHNIQUE: 3 views of the left shoulder, 6 views of the left humerus, 3 views of the left elbow. COMPARISON: None FINDINGS/ IMPRESSION: There is a comminuted fracture in the lefthumeral head. No extension to the glenohumeral joint. No other fractures are seen. Glenohumeral and acromioclavicular joints are appropriately aligned. No intra-articular bone fragment is seen. The elbow joint is also appropriately aligned. Additionally there is no elbow joint effusion. Location: [facility] at 0735 Reported and signed by: Seth Darling MD CC: Amish De Anda MD; Shaan Lozano DO Technologist: [place](R) Trnscrd Date/Time/By: 02/05/2020 (0768) : By: [email or web address] Orig Print D/T: S: 02/05/2020 (6323) PAGE 1 Signed R eport- XR SHOULDER 2 + V [id number] 07:35:00 [facility] : 1955 Sex: F FAX: Amish Lai MD [phone] [place]: St: REG FAX: Shaan Lozano DO Name: CASSANDRA WHITT [facility] : 1955 Age/S: 64/F [address] Unit #: [id number] L oc: [place] [address] Phys: Shaan Lozano DO Acct: [id number] Dis Date: Status: REG ER PHONE #: [phone] Exam Date: 02/05/2020 0658 FAX #: [phone] Reason: SHOULDER PAIN EXAMS: CPT CODE: [id number] XR SHOULDER 2 + [place] LT [id number] CLINICAL HISTORY: SHOULDER PAIN TECHNIQUE: 3 views of the left shoulder, 6 views of the left humerus, 3 views of the left elbow. COMPARISON: None FINDINGS/ IMPRESSION: There is a comminuted fracture in the lefthumeral head. No extension to the glenohumeral joint. No other fractures are seen. Glenohumeral and acromioclavicular joints are appropriately aligned. No intra-articular bone fragment is seen. The elbow joint is also appropriately aligned. Additionally there is no elbow joint effusion. Location: [facility] at 0735 Reported and signed by: Seth Darling MD CC: Amish De Anda MD; Shaan Lozano DO Technologist: [place](R) Trnscrd Date/Time/By: 02/05/2020 (0735) : By: ConnorRR31 Orig Print D/T: S: 02/05/2020 (0738) PAGE 1 Signed R eport- CT C-SPINE W/O [id number] 06:52:00 [facility])Name: CASSANDRA WHITT : 1955 Sex: F Name: CASSANDRA WHITT [facility] : 1955 Age/S: 64 / F [address] [facility] Unit #: [id number]: [place] [address] Phys: Shaan Lozano DO Acct: [id number] Dis Date: Status: REG ER PHONE #: [phone] Exam Date: 02/05/2020 0646 FAX #: [phone] Reason: Neck Pain EXAMS: CPT CODE: [id number] CT C-SPINE W/O CONTRAST 82679 Dictation location: [facility]. CT CERVICAL SPINE WITHOUT CONTRAST; SAGITTAL AND CORONAL REFORMATTED VIEWS. HISTORY: Neck Pain COMPARISON: CT cervical spine 12/12/19 TECHNIQUE: Axial CT images of the cervical spine were obtainedwith coronal and sagittal reformatted views. Automated exposure control, iterative reconstruction technique, and/or adjustment of mA and/or kV according to patient's size was utilized for radiation dose reduction. IV CONTRAST: None. FINDINGS: Cervical alignment is satisfactory without evidence of a fracture or subluxation. At C4-C5, degenerative changes noted with right uncovertebral hypertrophy and facet arthrosis causing no significant spinal canal stenosis and moderate right neuroforaminal narrowing. Right-sided shunt tubing is noted. IMPRESSION: No cervical spine fracture or subluxation. Degenerative changes at C4-C5 with moderate rightneuroforaminal narrowing. at 0652 Reported and signed by: Juanjose Brian M.D. CC: Amish De Anda MD; Shaan Lozano DO Technologist:RT HERIBERTO CTDI: DLP: Trnscb Date/Time: 02/05/2020 (651) [email or web address] Orig Print D/T: S: 02/05/2020 (0655) PAGE 1 Signed Report - CT HEAD/BRAIN W/O [id number] 06:50:00 [facility])Name: CASSANDRA WHITT : 1955 Sex: F Name: CASSANDRA WHITT [facility] : 1955 Age/S: 64 / F [address] [facility] Unit #: [id number]: [place] [address] Phys: Shaan Lozano DO Acct: [id number] Dis Date: Status: REG ER PHONE #: [phone] Exam Date: 02/05/2020 0640 FAX #: [phone] Reason: HEADACHE EXAMS: CPT CODE: [id number] CT HEAD/BRAIN W/O CONT 36810 Dictation location: H37. CT HEAD WITHOUT CONTRAST. HISTORY: HEADACHE COMPARISON: CT head 12/23/19. TECHNIQUE: Axial CT imagesof the head were obtained with coronal and/or sagittal reformatted views. Automated exposure control, iterative reconstruction technique, and/or adjustment of mA and/or kV according to patient's size was utilized for radiation dose reduction. IV CONTRAST: None. FINDINGS: Right frontal approach ventriculostomy catheter terminates in the left lateral ventricle, unchanged. No evidence of hydrocephalus. Encephalomalacia seen along the tract of the ventriculostomy catheter. Mild generalized atrophy. No other intracranial abnormalities such as hemorrhage, mass, mass effect, hydrocephalus, midline shift, extra-axial fluid collection or secondary signs of an acute infarct are noted. The calvarium and skull base are intact. The paranasal sinus and mastoid air cells are clear. IMPRESSION: No evidence of acute intracranial abnormality. at 0650 Reported and signed by: Juanjose Brian M.D. CC: Amish De Anda MD; Shaan Lozano DO Technologist:RT HERIBERTO CTDI: DLP: Trnscb Date/Time: 02/05/2020 (0650) [email or web address] Orig Print D/T: S: 02/05/2020 (0654) PAGE 1 Signed Report- SP SHUNTOGM [id number] 00:40:00 [facility])Name: CASSANDRA TORRES : 1955 Sex: F FAX: Winston Lang DO [phone] [place]: St: [facility] FAX: Amish Lai MD [phone] Name: CASSANDRA TORRES FRANCIS [facility] : 1955 Age/S: 64/F [address] Unit #: [id number] L oc: [place] [address] Phys: Winston Rutledge DO Acct: [id number] Dis Date: Status: REG ER PHONE #: [phone] Exam Date: 12/23/2019 0010 FAX #: [phone] Reason: HEAD TRAUMA, POSSIBLE DAMAGE TO CURED MEATS SUPERVISOR SHUNT EXAMS: CPT CODE: [id number] SP SHUNTOGM NONVAS [id number] EXAM: Shuntogram, 7 images Location code:J9 HISTORY: HEAD TRAUMA, POSSIBLE DAMAGE TO CURED MEATS SUPERVISOR SHUNT COMPARISON: None available FINDINGS: A right parietal approach ventriculostomy shunt catheter is noted. The tip terminates at the region of the midline and extends into the left upper quadrant of the abdomen. No acute fracture. Nonobstructive bowel gas pattern IMPRESSION: No acute findings. at 0040 Reported and signed by: Agus Hathaway M.D. CC: Winston Rutledge DO; Enriqueta De Anda MD Technologist: Esther Vela Trnscrd Date/Time/By: 12/24/2019 (39) : By: ConnorRR16 Orig Print D/T: S: 12/24/2019 (004) PAGE 1 Signed Report- CT HEAD/BRAIN W/O [id number] 00:11:00[facility])Name: CASSANDRA TORRES : 1955 Sex: F Name: CASSANDRA TORRES [facility] : 1955 Age/S: 64 / F [address] Unit #: [id number]: [place] [address] Phys: Winston Rutledge DO Acct: [id number] Dis Date: Status: PRE ER PHONE #: [phone] Exam Date: 12/23/2019 2350 FAX #: [phone] Reason: HEAD TRAUMA, POSSIBLE DAMAGE TO CURED MEATS SUPERVISOR SHUNT EXAMS: CPT CODE: [id number] CT HEAD/BRAIN W/O CONT 08223 Examination: Head CT without contrast Location code: H60 Comparison: 12/12/2019 Technique: Axial contiguous images through the brain were obtained without contrast media. All CT scans are performed using radiation dose reduction technique. Technical factors are evaluated and adjusted to insure appropriate moderationof exposure. Automated dose management technology is applied to adjust the radiation dose to minimize exposure while achieving a diagnostic quality image. Discussion: Clinical history is remarkable for trauma. Pain. There is no evidence o f hydrocephalus, midline shift, extra-axial fluid collection, hemorrhage, acute infarction, orspace-occupying mass lesion. The jaquez-white matter differentiation is preserved. A right-sided ventriculoperitoneal shunt catheter is identified with its tip in the left lateral ventricle. When compared to the prior examination the position of the catheter is essentially unchanged. Appearance the brain is unchanged when compared to the prior study. The calvarium and the paranasal sinuses are within normal limits. Impression: 1. No acute intracranial abnormality. Electronically Signed by Hunter Jaimes M.D. on12/24/2019 at 0011 Reported and signed by: Hunter Jaimes M.D. CC: Winston Rutledge DO; Amish De Anda MD Technologist:RT HERIBERTO CTDI: DLP: Trnscb Date/Time: 12/24/2019 (0011) [email or web address] Orig Print D/T: S: 12/24/2019 (0014) PAGE 1 Signed ReportTHYROID STIMULATING [id number] 07:51:00 Test Item Value Reference Range Interpretation Comments THYROID STIMULATING 0.051 uIU/mL 0.36-3.74 L TSH REFE RENCE HORMONE (test code = RANGES: EUTHYROID: TSH) 0.35 - 4.3 mIU/mL HYPO : > 5.5 mIU/mL HYPER : < 0.35 mIU/mL COMPREHENSIVE METABOLIC [id number] 07:43:00 Test Item Value Reference Range Interpretation Comments SODIUM (test code = 140 mmol/L 136-145 RESULT V ERIFIED BY NA) REPEAT ANALYSIS POTASSIUM (test code = 4.2 mmol/L 3.5-5.1 N K) CHLORIDE (test code = 108.0 mmol/L 98-107 H CL) CARBON DIOXIDE (test 26.0 mmol/L 21-32 N code = CO2) ANION GAP (test code = 10.2 10-20 N GAP) GLUCOSE (test code = 78 mg/dL 74-106 N GLU) BLOOD UREA NITROGEN 14 mg/dL 7-18 N (test code = BUN) GLOMERULAR FILTRATION 56 mL/min >=60 Estima roberto GFR by RATE (test code = GFR) using Modified MDRD formula.Chronic kidney disease is defined as [facility] er kidney damageor GFR <60 mL/min/1.73 m2 for >3 months. CREATININE (test code 1.00 mg/dL 0.55-1.02 N Note change in = CREAT) reference range due to change in reagent. BUN/CREATININE RATIO 14.3 10-20 N (test code = BUN/CREA) TOTAL PROTEIN (test 6.5 gram/dL 6.4-8.2 N code = PROT) ALBUMIN (test code = 3.2 g/dL 3.4-5.0 L ALB) GLOBULIN (test code = 3.3 gram/dL 2.7-4.2 N GLOB) ALBUMIN/GLOBULIN RATIO 1.0 0.75-1.50 N (test code = A/G) CALCIUM (test code = 9.0 mg/dL 8.5-10.1 N CA) BILIRUBIN TOTAL (test 0.70 mg/dL 0.0-1.0 N code = BILT) SGOT/AST (test code = 12 IUnit/L 15-37 L AST) SGPT/ALT (test code = 21 IUnit/L 12-78 N ALT) ALKALINE PHOSPHATASE 79 IUnit/L 45-117 N Note change in TOTAL (test code = reference range due ALKP) to change in reagent. CBC W/AUTO [id number] 07:20:00 Test Item Value Reference Range Interpretation Comments WHITE BLOOD CELL (test code = 6.4 K/mm3 4.5-12.5 N WBC) RED BLOOD CELL (test code = 3.89 mill/mm3 3.7-5.2 N RBC) HEMOGLOBIN (test code = HGB) 13.2 gram/dL 11.5-15.5 N HEMATOCRIT (test code = HCT) 38.3 % 36.0-46.0 N MEAN CELL VOLUME (test code = 98.5 fL 80-98 H MCV) MEAN CELL HGB (test code = MCH) 33.9 picogram 27.0-33.0 H MEAN CELL HGB CONCETRATION 34.5 gram/dL 33.0-36.0 N (test code = MCHC) RED CELL DISTRIBUTION WIDTH 11.9 % 11.6-16.2 N (test code = RDW) RED CELL DISTRIBUTION WIDTH SD 43.0 fL 37.0-51.0 N (test code = RDW-SD) PLATELET COUNT (test code = 233 K/mm3 150-450 N PLT) MEAN PLATELET VOLUME (test code 9.8 fL 6.7-11.0 N = MPV) NEUTROPHIL % (test code = NT%) 49.9 % 39.0-69.0 N IMMATURE GRANULOCYTE % (test 0.2 % 0.0-5.0 N code = IG%) LYMPHOCYTE % (test code = LY%) 36.3 % 25.0-55.0 N MONOCYTE % (test code = MO%) 9.2 % 0.0-10.0 N EOSINOPHIL % (test code = EO%) 3.8 % 0.0-5.0 N BASOPHIL % (test code = BA%) 0.6 % 0.0-1.0 N NUCLEATED RBC % (test code = 0.0 % 0-0 N NRBC%) NEUTROPHIL # (test code = NT#) 3.20 K/mm3 1.8-7.7 N IMMATURE GRANULOCYTE # (test 0.01 x10 3/uL 0-0.03 N code = IG#) LYMPHOCYTE # (test code = LY#) 2.32 K/mm3 1.0-5.0 N MONOCYTE # (test code = MO#) 0.59 K/mm3 0-0.8 N EOSINOPHIL # (test code = EO#) 0.24 K/mm3 0.0-0.5 N BASOPHIL # (test code = BA#) 0.04 K/mm3 0.0-0.2 N NUCLEATED RBC # (test code = 0.00 K/mm3 0.0-0.1 N NRBC#) [id number] 03:31:00 Test Item Value Reference Range Interpretation Comments TROPONIN-I (test code = TROPI) <0.015 ng/mL 0-0.045 N COMMENTS TO HOT PRESS OPERATOR: COLLECT 3 HOURS AFTER PREVIOUS [id number] 00:12:00 Test Item Value Reference Range Interpretation Comments TROPONIN-I (test code = TROPI) <0.015 ng/mL 0-0.045 N COMMENTS TO HOT PRESS OPERATOR: COLLECT 3 HOURS AFTER PREVIOUS SAMPLE- SP SHUNTOGM [id number] 16:43:00 FAX: Alex Lay MD [phone] [place]: [facility]: [facility] FAX: Amish Lai MD [phone] Name: CASSANDRA TORRES [facility] : 1955 Age/S: 64/F [address] Unit #: [id number] Loc: [place] [address] Phys: Alex Lay MD Acct: [id number] Dis Date: Status: ADM IN PHONE #: [phone] Exam Date: 12/12/2019 1605 FAX #: [phone] Reason: headache vertigo h/o shunt EXAMS: CPT CODE: [id number] SP SHUNTOGM NONVASC 07420 EXAM: Shuntogram nonvascular; 5 views; INFORMATION: Headache and vertigo; history of CURED MEATS SUPERVISOR shunt; IMPRESSION: 1. The shunt is intact. 2. The abdominal portion of the shuntis coiled in the upper abdomen. The tip is located in the left subphrenic space. Surg ical clips are seen in the gallbladder fossa. Location code: [facility] at 1642 Reported and signed by: True Orosco M.D. CC: Alex Lay MD; Amish De Anda MD Technologist: Miguel Crabtree, RT(R Trnscrd Date/Time/By: 12/12/2019 (1642) : By: Minor Orig Print D/T: S: 12/12/2019 (1645) PAGE 1 Signed Report- XR T-SPINE 3 VIEWS 2019-12-12 16:39:00 FAX: Alex Lay MD [phone] [place]: St: [facility] FAX: Amish Lai MD [phone] Name: CASSANDRA TORRES FRANCIS [facility] : 1955 Age/S: 64/F [address] Unit #: [id number] Loc: [place] [address] Phys: Alex Lay MD Acct: [id number] Dis Date: Status: ADM IN PHONE #: [phone] Exam Date: 12/12/2019 1600 FAX #: [phone] Reason: BACK PAIN EXAMS: CPT CODE: [id number] XR T-SPINE 3 VIEWS 67642 EXAM: Thoracic spine, 3 views; INFORMATION: Back pain after fall; FINDINGS: There is good alignment of the thoracic spine. Vertebral bodies and posterior elements are intact;no evidence of fracture. Diffuse osteoporosis. Mild narrowing of disc spaces in the midthoracic spine. Paravertebral soft tissues are unremarkable. IMPRESSION:1. No evidence of acute osseous trauma. 2. Diffuse osteoporosis. 2. Mild degenerative disc disease in the midthoracic spine. Location code: [facility] at 1639 Reported and signed by: True Orosco M.D. CC: Alex Lay MD; Amish De Anda MD Technologist: Miguel Crabtree, RT(RTrnscrd Date/Time/By: 12/12/2019 (1785) : By: ConnorGRW Orig Print D/T: S: 12/12/2019 (4798) PAGE 1 Signed Report- XR CHEST 1 [id number] 16:37:00 FAX: Alex Lay MD [phone] [place]: St: [facility] FAX: Amish Lai MD [phone] Name: CASSANDRA TORRES [facility] : 1955 Age/S: 64/F [address] Unit #: [id number] Loc: [place] [address] Phys: Alex Lay MD Acct: [id number] Dis Date: Status: ADM IN PHONE #: [phone] Exam Date: 12/12/2019 1605 FAX #: [phone] Reason: WEAKNESS EXAMS: CPT CODE: [id number] XR CHEST 1 V 93879 EXAM: Chest x-ray, one view; INFORMATION: Weakness; mid and lower back pain after fall; FINDINGS: Lungs are clear; no infiltrates, no edema; no effusions; no pneumothorax. Pleural effusion of the left costophrenic angle. The heart is normal in size. Aortic calcifications. A CURED MEATS SUPERVISOR shunt projects over the mediastinum. IMPRESSION: No evidence of active cardiopulmonary disease. Location code: [facility] at 1637 Reported and signed by: True Orosco M.D. CC: Alex Lay MD; Amish De Anda MD Technologist: RT Ritika(R Trnscrd Date/Time/By: 12/12/2019 (163) : By: ConnorGRW Orig Print D/T: S: 12/12/2019 (4734) PAGE 1 Signed ReportBASIC METABOLIC [id number] 16:03:00 Test Item Value Reference Range Interpretation Comments SODIUM (test code = 129 mmol/L 136-145 L NA) POTASSIUM (test code 4.9 mmol/L 3.5-5.1 N = K) CHLORIDE (test code = 104.0 mmol/L 98-107 N CL) CARBON DIOXIDE (test 19.0 mmol/L 21-32 L code = CO2) ANION GAP (test code 10.9 10-20 N = GAP) GLUCOSE (test code = 85 mg/dL 74-106 N GLU) BLOOD UREA NITROGEN 14 mg/dL 7-18 N (test code = BUN) GLOMERULAR FILTRATION > 60 mL/min >=60 Estima roberto GFR by RATE (test code = using Samy fied MDRD GFR) formula.Chronic kidney disease is defined as ei er kidney damageor GFR <60 mL/min/1.73 m2 for >3 months. CREATININE (test code 0.90 mg/dL 0.55-1.02 N Note change in = CREAT) reference range due to change in reagent. BUN/CREATININE RATIO 15.4 10-20 N (test code = BUN/CREA) CALCIUM (test code = 8.5 mg/dL 8.5-10.1 N CA) [id number] 16:03:00 Test Item Value Reference Range Interpretation Comments TROPONIN-I (test code = TROPI) <0.015 ng/mL 0-0.045 N BASIC METABOLIC [id number] 15:57:00 Test Item Value Reference Range Interpretation Comments SODIUM (test code = NA) 129 mmol/L 136-145 L POTASSIUM (test code = K) 4.9 mmol/L 3.5-5.1 N CHLORIDE (test code = CL) 104.0 mmol/L 98-107 N CARBON DIOXIDE (test code = CO2) mmol/L 21-32 ANION GAP (test code = GAP) 10-20 GLUCOSE (test code = GLU) mg/dL 74-106 BLOOD UREA NITROGEN (test code = mg/dL 7-18 BUN) GLOMERULAR FILTRATION RATE (test mL/min >=60 code = GFR) CREATININE (test code = CREAT) mg/dL 0.55-1.02 BUN/CREATININE RATIO (test code 10-20 = BUN/CREA) CALCIUM (test code = CA) mg/dL 8.5-10.1 [id number] 15:57:00 Test Item Value Reference Range Interpretation Comments TROPONIN-I (test code = TROPI) ng/mL 0-0.045 PROTHROMBIN [id number] 15:52:00 Test Item Value Reference Range Interpretation Comments PROTHROMBIN TIME 10.6 seconds 9.0-14.0 N PATIENT (test code = PTP) INTERNATIONAL NORMAL 0.9 0.8-1.2 N The the rapeutic range RATIO (test code = for oral INR) anticoagulant t herapy formost indicat ions is an internati onal normalized rati o (INR)of between 2.0 and 3.0. The recommended therapeutic INR range for various cli nical situations is l isted below: Clinical Situat ion INR range Pulmonary embol ism treatment (2.0-3.0)Venou s thrombosis treatmentVenous thrombosis prophylaxis (hi risk surgery)Prevent ion of systemic emboli sm from: A cute myocardial infa rction Valvula r heart disease Atrial fibrilla tion Mechanical pros thetic heart valves (2.5-3.5) IS PATIENT ON ANTICOAGULANTS? NTHROMBOPLASTIN TIME [id number] 15:52:00 Test Item Value Reference Range Interpretation Comments THROMBOPLASTIN TIME PARTIAL 26.8 seconds 23.0-37.0 N (test code = PTT) IS PATIENT ON ANTICOAGULANTS? NURINALYSIS [id number] 15:50:00 Test Item Value Reference Range Interpretation Comments UA COLOR (test code = COLU) COLORLESS YELLOW A UA APPEARANCE (test code = CLEAR CLEAR APPU) UA GLUCOSE DIPSTICK (test NEGATIVE mg/dL NEGATIVE code = DGLUU) UA BILIRUBIN DIPSTICK (test NEGATIVE mg/dL NEGATIVE code = BILU) UA KETONE DIPSTICK (test code NEGATIVE mg/dL NEGATIVE = KETU) UA SPECIFIC GRAVITY (test 1.007 1.001-1.035 code = SGU) UA BLOOD DIPSTICK (test code Negative mg/dL NEGATIVE = KELVIN) UA PH DIPSTICK (test code = 6.0 5.0-8.0 LAURA) UA PROTEIN DIPSTICK (test NEGATIVE mg/dL NEGATIVE code = PROU) UA UROBILINIOGEN DIPSTICK Normal mg/dL NEGATIVE (test code = URO) UA NITRITE DIPSTICK (test NEGATIVE NEGATIVE code = LARRY) UA LEUKOCYTE ESTERASE W NEGATIVE Ruchi/uL NEGATIVE REFLEX (test code = LEUUR) UA WBC (test code = WBCU) 0-5 per HPF 0-5 UA RBC (test code = RBCU) NONE SEEN #/HPF 0-5 UA EPITHELIAL CELLS (test FEW per HPF FEW code = EPIU) UA BACTERIA (test code = NONE SEEN #/HPF NONE BACU) Urine Source? Clean CatchCBC W/O [id number] 15:47:00 Test Item Value Reference Range Interpretation Comments WHITE BLOOD CELL (test code = 8.0 K/mm3 4.5-12.5 N WBC) RED BLOOD CELL (test code = 3.73 mill/mm3 3.7-5.2 N RBC) HEMOGLOBIN (test code = HGB) 12.6 gram/dL 11.5-15.5 N HEMATOCRIT (test code = HCT) 36.6 % 36.0-46.0 N MEAN CELL VOLUME (test code = 98.1 fL 80-98 H MCV) MEAN CELL HGB (test code = MCH) 33.8 picogram 27.0-33.0 H MEAN CELL HGB CONCETRATION 34.4 gram/dL 33.0-36.0 N (test code = MCHC) RED CELL DISTRIBUTION WIDTH 11.8 % 11.6-16.2 N (test code = RDW) PLATELET COUNT (test code = 206 K/mm3 150-450 N PLT) MEAN PLATELET VOLUME (test code 10.1 fL 6.7-11.0 N = MPV) - CT C-SPINE W/O [id number] 14:48:00 Name: CASSANDRA TORRES [facility] : 1955 Age/S: 64 / F [address] [facility] Unit #: [id number] Loc: [place] [address] Phys: Alex Lay MD Acct: [id number] Dis Date: Status: PRE ER PHONE #: [phone] Exam Date: 12/12/2019 1433 FAX #: [phone] Reason: Neck Pain EXAMS: CPTCODE: [id number] CT C-SPINE W/O CONTRAST 18787 HISTORY: Neck pain. COMPARISON: None available. Location: [facility]. CT cervical spine without contrast: Automated exposure control. No acute fracture of the cervical spine. No prevertebral soft tissue swelling. Multilevel moderate foraminal stenosis from facet hypertrophy. No significant canal stenosis. Posterior osteophytes are visible. Unremarkable superior mediastinum. Thyroid glands are not visible. Lung apices are clear. Minimal bullous changes in the apices. Anatomic alignment. Vertebral body heights are maintained. Disc spaces are preserved. CURED MEATS SUPERVISOR shunt catheter on the right side. Uncovertebral joints are narrowed. IMPRESSION: No acute fracture. Anatomic alignment. Vertebral body heights are maintained. DJD. at 1448 Reported and signed by: Aristides Giordano M.D. CC: Alex Lay MD; Amish De Anda MD Technologist:Tato Mayes RT(R),(MR),(CT) CTDI: DLP: Trnscb Date/Time: 12/12/2019 (1448) [email or web address].TH4 Orig Print D/T:S: 12/12/2019 (9003) PAGE 1 Signed Report- CT HEAD/BRAIN W/O [id number] 14:44:00 Name: CASSANDRA TORRES [facility] : 1955 Age/S: 64 / F [address] [facility] Unit #: [id number] Loc: [place] [address] Phys: Alex Lay MD Acct: [id number] Dis Date: Status: PRE ER PHONE #: [phone] Exam Date: 12/12/2019 1433 FAX #: [phone] Reason: vertigo EXAMS: CPTCODE: [id number] CT HEAD/BRAIN W/O CONT 34912 HISTORY: Vertigo. COMPARISON: June 06, 2019. Location: [facility]. CT brain without contrast: Automated exposure control. No acute intracranial bleeds or extra-axial collections are noted. No acute territorial vascular infarction is noted. CURED MEATS SUPERVISOR shunt catheter from a right frontal/parietal approach with the tip crossing the midline and residing within the anterior horn of the left lateral ventricle. Mildly dilated lateral ventricles. This pattern is unchanged. The sulci, gyri, ventricles and subarachnoid spaces and the basilar cisterns are normal for patient's age. No herniation or hydrocephalus or midline shift isnoted. Mild periventricular ischemic gliosis is noted. Age-appropriate atrophy is noted as well. Portions of the visualized paranasal sinuses are normal. Sclerosis of the mastoid air cells bilaterally. No obvious bony calvarial defect is noted. IMPRESSION: No acute intracranial bleeds or extra-axial collections. CURED MEATS SUPERVISOR shunt catheter from a right frontal/parietal approach with the tip crossing the midline and residing within the anterior horn of the left lateral ventricle. Mildly dilated lateral ventricles. This pattern is unchanged. No acute territorial vascular infarction. No herniation or hydrocephalus or midline shift. Chronic white matter ischemic disease and atrophy . PAGE 1 Signed Report (CONTINUED) Name: CASSANDRA TORRES [facility] : 1955 Age/S: 64 / F [address] [facility] #: [id number] Loc: [place] [address] Phys: Alex Lay MD Acct: [id number] Dis Date: Status: PRE ER PHONE #: [phone] Exam Date: 12/12/2019 1433 FAX #: [phone] Reason: vertigo EXAMS: CPT CODE: [id number] CT HEAD/BRAIN W/O CONT 08047 <Continued> at 1444 Reported and signed by: Aristides Giordano M.D. CC: Alex Lay MD; Amish De Anda MD Technologist:Tato Mayes RT(R),(MR),(CT) CTDI: DLP: Trnscb Date/Time: 12/12/2019 (1444) [email or web address] Orig Print D/T: S: 12/12/2019 (2524) PAGE 2 Signed ReportPROTHROMBIN [id number] 07:11:00 Test Item Value Reference Range Interpretation Comments PROTHROMBIN TIME 11.4 seconds 9.0-14.0 N PATIENT (test code = PTP) INTERNATIONAL NORMAL 1.0 0.8-1.2 N The the rapeutic range RATIO (test code = for oral INR) anticoagulant t herapy formost indicat ions is an internati onal normalized rati o (INR)of between 2.0 and 3.0. The recommended therapeutic INR range for various cli nical situations is l isted below: Clinical Situat ion INR range Pulmonary embol ism treatment (2.0-3.0)Venou s thrombosis treatmentVenous thrombosis prophylaxis (hi gh risk surgery)Prevent ion of systemic emboli sm from: A cute myocardial infa rction Valvula r heart disease Atrial fibrilla tion Mechanical pros thetic heart valves (2.5-3.5) IS PATIENT ON ANTICOAGULANTS? YLIST ANTICOAGULANTS COUMADINTROPONIN-I 2019-07-11 09:01:00 Test Item Value Reference Range Interpretation Comments TROPONIN-I (test code = TROPI) <0.015 ng/mL 0-0.045 N COMMENTS TO HOT PRESS OPERATOR: COLLECT 3 HOURS AFTER PREVIOUS SAMPLELIPID PROFILE (CORONARY RISK)2019-07-11 09:01:00 Test Item Value Reference Range Interpretation Comments TRIGLYCERIDES (test 111 mg/dL 20-150 N code = TRIG) CHOLESTEROL (test code 155 mg/dL 0-200 N = CHOL) CHOLESTEROL/HDL RATIO 3.0 RATIO 0-4.9 N RISK A SSOCIATED WITH (test code = CHOLHDL) CHOL/H DL RATIOS: Risk M isiah Female1/[address] RAGE 3.43 3.27AVERAGE 4.97 4.4 [address]X AVERAGE [address] RAGE 23.39 11.04 REFERENCE VALUE IS RELATED TO RISK LEVELS ASRECOMMENDED B Y THE ADALBERTO. HEART, MARK G, AND BLOOD INST. HDL CHOLESTEROL (test 43 mg/dL 40-60 N code = HDL) LIPOPROTEIN LDL (test 92 mg/dL 100-129 L ====== code = LDL) ======= Referen ce Interval: mg/dL mmol/L--------- ------- ------- ------O ptimal <100 <2.6Near/above optimal 100-12 9 2.6-3.3Borderl ine High 130-159 3.4-4.1High 160 -189 4.1-4.9Very High >=190 >=4.9========= This LDL result is a direct measurement.=== ====== THYROID STIMULATING [id number] 09:01:00 Test Item Value Reference Range Interpretation Comments THYROID STIMULATING 4.590 uIU/mL 0.36-3.74 H TSH REFE RENCE HORMONE (test code = RANGES: EUTHYROID: TSH) 0.35 - 4.3 mIU/mL HYPO : > 5.5 mIU/mL HYPER : < 0.35 mIU/mL BASIC METABOLIC [id number] 08:35:00 Test Item Value Reference Range Interpretation Comments SODIUM (test code = 139 mmol/L 136-145 N NA) POTASSIUM (test code 4.9 mmol/L 3.5-5.1 N = K) CHLORIDE (test code = 109.0 mmol/L 98-107 H CL) CARBON DIOXIDE (test 23.0 mmol/L 21-32 N code = CO2) ANION GAP (test code 11.9 10-20 N = GAP) GLUCOSE (test code = 82 mg/dL 74-106 N GLU) BLOOD UREA NITROGEN 17 mg/dL 7-18 N (test code = BUN) GLOMERULAR FILTRATION > 60 mL/min >=60 Estima roberto GFR by RATE (test code = using Samy fied MDRD GFR) formula.Chronic kidney disease is defined as [facility] kidney damageor GFR <60 mL/min/1.73 m2 for >3 months. CREATININE (test code 0.90 mg/dL 0.55-1.02 N Note change in = CREAT) reference range due to change in reagent. 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 TECHNIQUE AND FINDINGS: CT dose reduction protocol; 3.75 mm cuts through the chest during intravenous infusion of contrast material. Lung windows show minimal dependent atelectasis bilaterally; no evidence of infiltrates and no effusions. There is a right pericardiac fat pad which may account for the density described on the chest x-ray and there is minimal scarring in the anterior lateral and basilar portions of the left lower lobe. Otherwise, lungs are clear. No pneumothorax. Dense enhancement of the pulmonary arteries; no filling defects. Atherosclerotic changes of the thoracic aorta and mural thrombus in the descending aorta. The heart is normal in size. Scans through the upper abdomen show several left renal cysts. IMPRESSION: 1. No acute cardiothoracic abnormalities; no evidence of pulmonary embolus more dissection. 2. 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 3. Mild dependent atelectasis. 4. Left renal cysts. at 2055 Reported and signed by: True Orosco M.D. CC: Amish De Anda MD Technologist:DARIAN MATA(R),RDMS,CT CTDI: DLP: Trnscb Date/Time: 07/10/2019 (2055) CorrieW Orig Print D/T: S: 07/10/2019 (2058) PAGE 1 Signed Report- XR CHEST 1 [id number] 20:34:00 Name: CASSANDRA COLVIN [facility] : 1955 Age/S:63 /F [address] [facility] Unit#:[id number] Loc: [place] [address] Phys: Cheyanne Welch MD Dis Date: PHONE #: [phone] Status: REG ER FAX #: [phone] Exam Date: 07/10/2019 Reason: CHEST PAIN EXAMS: CPT CODE:[id number] XR CHEST 1 V 51850 EXAM: Chest x-ray, one[facility]; INFORMATION: Chest pain; FINDINGS: There is a small density in the right paracardiac region which could be an evolving infiltrate or atelectasis. Opacification above the left costophrenic angle which does not obscure the diaphragm. The remainder of the lungs is clear. No evidence of pulmonary edema; The heart is borderline insize. Slightly tortuous aorta. IMPRESSION: 1. Suspicion of small rightbasilar infiltrate versus atelectasis. 2. Small opacification above the left costophrenic angle is probably due to atelectasis. Location code: [facility] at 2033 Reported and signed by: True Orosco M.D. CC: Amish De Anda MD Technologist: DARIAN MATA RT(R),RDMS,CT Trnscrpt Data: 07/10/2019 (2033) ConnorGRW Orig Print D/T: S: 07/10/2019 (2036) PAGE 1 Signed ReportURINALYSIS [id number] 19:53:00 Test Item Value Reference Range Interpretation Comments UA COLOR (test code = YELLOW YELLOW COLU) UA APPEARANCE (test code CLEAR CLEAR = APPU) UA GLUCOSE DIPSTICK (test norm mg/dL NEGATIVE code = DGLUU) UA BILIRUBIN DIPSTICK NEGATIVE mg/dL NEGATIVE (test code = BILU) UA KETONE DIPSTICK (test neg mg/dL NEGATIVE code = KETU) UA SPECIFIC GRAVITY (test 1.010 1.001-1.035 code = SGU) UA BLOOD DIPSTICK (test neg Dao/uL NEGATIVE code = KELVIN) UA PH DIPSTICK (test code 7.0 5.0-8.0 = LAURA) UA PROTEIN DIPSTICK (test neg mg/dL Neg-15 code = PROU) UA UROBILINIOGEN DIPSTICK 1 mg/dL 0.0-0.2 A (test code = URO) UA NITRITE DIPSTICK (test NEGATIVE NEGATIVE code = LARRY) UA LEUKOCYTE ESTERASE neg uL NEGATIVE DIPSTICK (test code = LEUU) UA WBC (test code = WBCU) NONE SEEN per HPF 0-5 UA RBC (test code = RBCU) NONE SEEN per HPF 0-5 UA EPITHELIAL CELLS (test Rare (0-1/hpf) per Few code = EPIU) HPF UA BACTERIA (test code = FEW per HPF NONE BACU) Urine Source? Clean CatchDRUGS OF ABUSE SCREEN [id number] 19:53:00 Test Item Value Reference Range Interpretation Comments URN COCAINE (test code = COCAURN) NEGATIVE NEGATIVE URN CANNABINOIDS (test code = POSITIVE NEGATIVE A CANNABURN) URN AMPHETAMINE (test code = NEGATIVE NEGATIVE AMPHETURN) URN BARBITURATE (test code = NEGATIVE NEGATIVE BARBITURN) URN BENZODIAZEPINE (test code = NEGATIVE NEGATIVE BENZOURN) URN OPIATES (test code = OPIATURN) NEGATIVE NEGATIVE URN PHENCYCLIDINE (PCP) (test code = NEGATIVE NEGATIVE PHENCURN) Urine Source? Clean [id number] 19:53:00 Test Item Value Reference Range Interpretation Comments D-DIMER (test code = 745 ng/ml < 600 HH Results called to ANN MARIE WELLINGTON) Pastor V.LAB .AV1 07/10/19 1953Cr itical results verifie d and read back by Lorraine johnson? Y URINALYSIS [id number] 19:52:00 Test Item Value Reference Range Interpretation Comments UA COLOR (test code = YELLOW YELLOW COLU) UA APPEARANCE (test code CLEAR CLEAR = APPU) UA GLUCOSE DIPSTICK (test norm mg/dL NEGATIVE code = DGLUU) UA BILIRUBIN DIPSTICK NEGATIVE mg/dL NEGATIVE (test code = BILU) UA KETONE DIPSTICK (test neg mg/dL NEGATIVE code = KETU) UA SPECIFIC GRAVITY (test 1.010 1.001-1.035 code = SGU) UA BLOOD DIPSTICK (test neg Dao/uL NEGATIVE code = KELVIN) UA PH DIPSTICK (test code 7.0 5.0-8.0 = LAURA) UA PROTEIN DIPSTICK (test neg mg/dL Neg-15 code = PROU) UA UROBILINIOGEN DIPSTICK 1 mg/dL 0.0-0.2 A (test code = URO) UA NITRITE DIPSTICK (test NEGATIVE NEGATIVE code = LARRY) UA LEUKOCYTE ESTERASE neg uL NEGATIVE DIPSTICK (test code = LEUU) UA WBC (test code = WBCU) NONE SEEN per HPF 0-5 UA RBC (test code = RBCU) NONE SEEN per HPF 0-5 UA EPITHELIAL CELLS (test Rare (0-1/hpf) per Few code = EPIU) HPF UA BACTERIA (test code = FEW per HPF NONE BACU) Urine Source? Clean CatchDRUGS OF ABUSE SCREEN [id number] 19:52:00 Test Item Value Reference Range Interpretation Comments URN COCAINE (test code = COCAURN) NEGATIVE URN CANNABINOIDS (test code = NEGATIVE CANNABURN) URN AMPHETAMINE (test code = AMPHETURN) NEGATIVE URN BARBITURATE (test code = BARBITURN) NEGATIVE URN BENZODIAZEPINE (test code = NEGATIVE BENZOURN) URN OPIATES (test code = OPIATURN) NEGATIVE URN PHENCYCLIDINE (PCP) (test code = NEGATIVE PHENCURN) Urine Source? Clean CatchURINALYSIS [id number] 19:50:00 Test Item Value Reference Range Interpretation Comments UA COLOR (test code = COLU) YELLOW YELLOW UA APPEARANCE (test code = CLEAR CLEAR APPU) UA GLUCOSE DIPSTICK (test code norm mg/dL NEGATIVE = DGLUU) UA BILIRUBIN DIPSTICK (test NEGATIVE mg/dL NEGATIVE code = BILU) UA KETONE DIPSTICK (test code neg mg/dL NEGATIVE = KETU) UA SPECIFIC GRAVITY (test code 1.010 1.001-1.035 = SGU) UA BLOOD DIPSTICK (test code = neg Dao/uL NEGATIVE KELVIN) UA PH DIPSTICK (test code = 7.0 5.0-8.0 LAURA) UA PROTEIN DIPSTICK (test code neg mg/dL Neg-15 = PROU) UA UROBILINIOGEN DIPSTICK 1 mg/dL 0.0-0.2 A (test code = URO) UA NITRITE DIPSTICK (test code NEGATIVE NEGATIVE = LARRY) UA LEUKOCYTE ESTERASE DIPSTICK neg uL NEGATIVE (test code = LEUU) UA WBC (test code = WBCU) per HPF 0-5 UA RBC (test code = RBCU) per HPF 0-5 UA EPITHELIAL CELLS (test code per HPF Few = EPIU) UA BACTERIA (test code = BACU) per HPF NONE Urine Source? Clean CatchDRUGS OF ABUSE SCREEN [id number] 19:50:00 Test Item Value Reference Range Interpretation Comments URN COCAINE (test code = COCAURN) NEGATIVE URN CANNABINOIDS (test code = NEGATIVE CANNABURN) URN AMPHETAMINE (test code = AMPHETURN) NEGATIVE URN BARBITURATE (test code = BARBITURN) NEGATIVE URN BENZODIAZEPINE (test code = NEGATIVE BENZOURN) URN OPIATES (test code = OPIATURN) NEGATIVE URN PHENCYCLIDINE (PCP) (test code = NEGATIVE PHENCURN) Urine Source? Clean CatchBASIC METABOLIC [id number] 19:50:00 Test Item Value Reference Range Interpretation Comments SODIUM (test code = 140 mmol/L 136-145 N NA) POTASSIUM (test code = 4.3 mmol/L 3.5-5.1 N K) CHLORIDE (test code = 104 mmol/L 101-109 N CL) CARBON DIOXIDE (test 26.4 mmol/L 21-32 N code = CO2) ANION GAP (test code = 14 mmol/L 10-20 N GAP) GLUCOSE (test code = 107 mg/dL 74-106 H GLU) BLOOD UREA NITROGEN 19 mg/dL 3-21 N (test code = BUN) GLOMERULAR FILTRATION 49 mL/min >=60 Estima roberto GFR by RATE (test code = GFR) using Modified MDRD formula.Chronic kidney disease is defined as ei er kidney damageor GFR <60 mL/min/1.73 m2 for >3 months. CREATININE (test code 1.13 mg/dL 0.55-1.3 N = CREAT) BUN/CREATININE RATIO 16.8 10-20 N (test code = BUN/CREA) CALCIUM (test code = 7.2 mg/dL 8.4-10.2 L CA) HEPATIC FUNCTION [id number] 19:50:00 Test Item Value Reference Range Interpretation Comments TOTAL PROTEIN (test 6.6 g/dL 6.5-8.4 N code = PROT) ALBUMIN (test code = 3.1 g/dL 3.4-4.8 L ALB) GLOBULIN (test code = 3.5 G/DL 1-10 N GLOB) ALBUMIN/GLOBULIN RATIO 0.89 RATIO 0.75-1.50 N (test code = A/G) BILIRUBIN TOTAL (test 0.30 mg/dL 0.0-1.0 N code = BILT) BILIRUBIN DIRECT (test 0.10 mg/dL 0.0-0.30 N code = BILD) SGOT/AST (test code = 21 U/L 6-32 N AST) SGPT/ALT (test code = 23 U/L 12-78 N Note: Change in ALT) REFERENCE RANGE due to new reagent method. ALKALINE PHOSPHATASE 101 U/L 38-126 N TOTAL (test code = ALKP) [id number] 19:50:00 Test Item Value Reference Range Interpretation Comments LIPASE (test code = LIP) 164 U/L 128-270 N [id number] 19:50:00 Test Item Value Reference Range Interpretation Comments TROPONIN-I (test code = TROPI) <0.015 ng/mL 0.00-0.056 N B-TYPE NATRIURETIC [id number] 19:49:00 Test Item Value Reference Range Interpretation Comments B-TYPE NATRIURETIC PEPTIDE (test 23.7 pg/mL 0-100 N code = BNP) CBC W/O [id number] 19:32:00 Test Item Value Reference Range Interpretation Comments WHITE BLOOD CELL (test code = 8.4 K/mm3 4.5-12.5 N WBC) RED BLOOD CELL (test code = 4.01 mill/mm3 3.7-5.2 N RBC) HEMOGLOBIN (test code = HGB) 12.6 gram/dL 11.5-15.5 N HEMATOCRIT (test code = HCT) 39.6 % 36.0-46.0 N MEAN CELL VOLUME (test code = 98.8 fL 80-98 H MCV) MEAN CELL HGB (test code = MCH) 31.4 picogram 27.0-33.0 N MEAN CELL HGB CONCETRATION 31.8 gram/dL 33.0-36.0 L (test code = MCHC) RED CELL DISTRIBUTION WIDTH 12.2 % 11.6-16.2 N (test code = RDW) RED CELL DISTRIBUTION WIDTH SD 45.5 fL 37.0-51.0 N (test code = RDW-SD) PLATELET COUNT (test code = 199 K/mm3 150-450 N PLT) MEAN PLATELET VOLUME (test code 9.8 fL 6.7-11.0 N = MPV) - XR TIBIA/FIBULA 2 V [id number] 17:38:00 Name: CASSANDRA TORRES [facility] : 1955 Age/S:63 /F [address] [facility] Unit#:[id number] Loc: [place] [address] Phys: Marietta Huynh MD Dis Date: PHONE #: [phone] Status: REG ER FAX #: [phone] Exam Date: 06/16/2019 Reason: fall, left rothman pain EXAMS: CPT CODE: [id number] XR TIBIA/FIBUL[place] 2 [place] [address] HISTORY: Fall and pain. COMPARISON: None available. Location: TH. 2 views of the left leg: No acute fracture or dislocation. Ankle and knee joints are narrowed mildly. No ankle or knee joint fluid. Mineralization and soft tissues are normal. IMPRESSION: No acute fracture or dislocation. Electronically Signedby Sg Giordano on 06/16/2019 at 1738 Reported and signed by: Aristides Giordano M.D. CC: Marietta Huynh MD; Amish De Anda MD Technologist: Mert Smith RT(R),CT Trnscrpt Data: 06/16/2019 (1738) t.THUR.TH4 Orig Print D/T: S: 06/16/2019 (9240) PAGE 1 Sig naomy Report- SP SHUNTOGM [id number] 14:26:00 FAX: Martin Guzmán MD [phone] [place]: St: ADM FAX: Amish Lai MD [phone] Name: CASSANDRA TORRES [facility] : 1955 Age/S: 63/F [address] [facility] Unit #: [id number] Loc: [address] [address] Phys: Martin Guzmán MD Acct: [id number] Dis Date: Status: ADM IN PHONE #: [phone] Exam Date: 06/07/2019 1342 FAX #: [phone] Reason: EVAL FOR SHUNT, DIZZY EXAMS: CPT CODE: [id number] SP SHUNTOGM NONVASC 02813 CLINICAL HISTORY: EVAL FOR SHUNT, DIZZY TECHNIQUE: Shunt series (AP/lateral skull; AP/lateral neck;AP chest; AP abdomen) COMPARISON: Head CT from 06/06/19; chest x-ray 05/18/19 FINDINGS: Ventriculoperitoneal shunt in place. Intracranial segment is intact and directed towards the midline from a right frontal approach. With exception of radiolucent valve, extracranial segment appears intact throughout its course. Distal tip is located within the left upper abdomen. IMPRESSION: Ventriculoperitoneal shunt is intact. LOCATION: [facility] at 1426 Reported and signed by: Janis Stubbs D.O. CC: Martin Guzmán MD; Amish De Anda MD Technologist: KAREEM SANTOSR) Trnscrd Date/Time/By: 06/07/2019 (8120) : By: ConnorLDP1 Orig Print D/T: S: 06/07/2019 (0804) PAGE 1 Signed ReportCBC W/AUTO [id number] 05:30:00 Test Item Value Reference Range Interpretation Comments WHITE BLOOD CELL (test code = 7.2 K/mm3 4.5-12.5 N WBC) RED BLOOD CELL (test code = 3.63 mill/mm3 3.7-5.2 L RBC) HEMOGLOBIN (test code = HGB) 11.8 gram/dL 11.5-15.5 N HEMATOCRIT (test code = HCT) 34.4 % 36.0-46.0 L MEAN CELL VOLUME (test code = 94.8 fL 80-98 N MCV) MEAN CELL HGB (test code = MCH) 32.5 picogram 27.0-33.0 N MEAN CELL HGB CONCETRATION 34.3 gram/dL 33.0-36.0 N (test code = MCHC) RED CELL DISTRIBUTION WIDTH 11.4 % 11.6-16.2 L (test code = RDW) RED CELL DISTRIBUTION WIDTH SD 39.4 fL 37.0-51.0 N (test code = RDW-SD) PLATELET COUNT (test code = 285 K/mm3 150-450 N PLT) MEAN PLATELET VOLUME (test code 10.0 fL 6.7-11.0 N = MPV) NEUTROPHIL % (test code = NT%) 53.5 % 39.0-69.0 N IMMATURE GRANULOCYTE % (test 0.1 % 0.0-5.0 N code = IG%) LYMPHOCYTE % (test code = LY%) 34.5 % 25.0-55.0 N MONOCYTE % (test code = MO%) 9.2 % 0.0-10.0 N EOSINOPHIL % (test code = EO%) 2.1 % 0.0-5.0 N BASOPHIL % (test code = BA%) 0.6 % 0.0-1.0 N NUCLEATED RBC % (test code = 0.0 % 0-0 N NRBC%) NEUTROPHIL # (test code = NT#) 3.83 K/mm3 1.8-7.7 N IMMATURE GRANULOCYTE # (test 0.01 x10 3/uL 0-0.03 N code = IG#) LYMPHOCYTE # (test code = LY#) 2.47 K/mm3 1.0-5.0 N MONOCYTE # (test code = MO#) 0.66 K/mm3 0-0.8 N EOSINOPHIL # (test code = EO#) 0.15 K/mm3 0.0-0.5 N BASOPHIL # (test code = BA#) 0.04 K/mm3 0.0-0.2 N NUCLEATED RBC # (test code = 0.00 K/mm3 0.0-0.1 N NRBC#) COMPREHENSIVE METABOLIC [id number] 05:24:00 Test Item Value Reference Range Interpretation Comments SODIUM (test code = 141 mmol/L 136-145 N NA) POTASSIUM (test code = 3.8 mmol/L 3.5-5.1 N K) CHLORIDE (test code = 108.0 mmol/L 98-107 H CL) CARBON DIOXIDE (test 25.0 mmol/L 21-32 N code = CO2) ANION GAP (test code = 11.8 10-20 N GAP) GLUCOSE (test code = 88 mg/dL 74-106 N GLU) BLOOD UREA NITROGEN 7 mg/dL 7-18 N (test code = BUN) GLOMERULAR FILTRATION > 60 mL/min >=60 Estima roberto GFR by RATE (test code = GFR) using Modified MDRD formula.Chronic kidney disease is defined as [facility] er kidney damageor GFR <60 mL/min/1.73 m2 for >3 months. CREATININE (test code 0.90 mg/dL 0.55-1.02 N Note change in = CREAT) reference range due to change in reagent. BUN/CREATININE RATIO 7.8 10-20 L (test code = BUN/CREA) TOTAL PROTEIN (test 6.6 gram/dL 6.4-8.2 N code = PROT) ALBUMIN (test code = 2.6 g/dL 3.4-5.0 L ALB) GLOBULIN (test code = 4.0 gram/dL 2.7-4.2 N GLOB) ALBUMIN/GLOBULIN RATIO 0.7 0.75-1.50 L (test code = A/G) CALCIUM (test code = 8.7 mg/dL 8.5-10.1 N CA) BILIRUBIN TOTAL (test 0.60 mg/dL 0.0-1.0 N code = BILT) SGOT/AST (test code = 7 IUnit/L 15-37 L AST) SGPT/ALT (test code = 16 IUnit/L 12-78 N ALT) ALKALINE PHOSPHATASE 123 IUnit/L 45-117 H Note change in TOTAL (test code = reference range due ALKP) to change in reagent. LIPID PROFILE (CORONARY RISK)2019-06-07 05:24:00 Test Item Value Reference Range Interpretation Comments TRIGLYCERIDES (test 120 mg/dL 20-150 N code = TRIG) CHOLESTEROL (test code 116 mg/dL 0-200 N = CHOL) CHOLESTEROL/HDL RATIO 4.0 RATIO 0-4.9 N RISK A SSOCIATED WITH (test code = CHOLHDL) CHOL/H DL RATIOS: Risk M isiah Female1/[address] RAGE 3.43 3.27AVERAGE 4.97 4.4 [address]X AVERAGE 9[address] RAGE 23.39 11.04 REFERENCE VALUE IS RELATED TO RISK LEVELS ASRECOMMENDED B Y THE ADALBERTO. HEART, MARK G, AND BLOOD INST. HDL CHOLESTEROL (test 27 mg/dL 40-60 L code = HDL) LIPOPROTEIN LDL (test 70 mg/dL 100-129 L ====== code = LDL) ======= Referen ce Interval: mg/dL mmol/L--------- ------- ------- ------O ptimal <100 <2.6Near/above optimal 100-12 9 2.6-3.3Borderl ine High 130-159 3.4-4.1High 160 -189 4.1-4.9Very High >=190 >=4.9========= This LDL result is a direct measurement.=== ====== THYROID STIMULATING [id number] 05:24:00 Test Item Value Reference Range Interpretation Comments THYROID STIMULATING 2.550 uIU/mL 0.36-3.74 N TSH REFE RENCE HORMONE (test code = RANGES: EUTHYROID: TSH) 0.35 - 4.3 mIU/mL HYPO : > 5.5 mIU/mL HYPER : < 0.35 mIU/mL CBC W/AUTO [id number] 05:23:00 Test Item Value Reference Range Interpretation Comments WHITE BLOOD CELL (test code = K/mm3 4.5-12.5 WBC) RED BLOOD CELL (test code = RBC) mill/mm3 3.7-5.2 HEMOGLOBIN (test code = HGB) 11.8 gram/dL 11.5-15.5 N HEMATOCRIT (test code = HCT) % 36.0-46.0 MEAN CELL VOLUME (test code = fL 80-98 MCV) MEAN CELL HGB (test code = MCH) picogram 27.0-33.0 MEAN CELL HGB CONCETRATION (test gram/dL 33.0-36.0 code = MCHC) RED CELL DISTRIBUTION WIDTH % 11.6-16.2 (test code = RDW) RED CELL DISTRIBUTION WIDTH SD fL 37.0-51.0 (test code = RDW-SD) PLATELET COUNT (test code = PLT) K/mm3 150-450 MEAN PLATELET VOLUME (test code fL 6.7-11.0 = MPV) NEUTROPHIL % (test code = NT%) % 39.0-69.0 IMMATURE GRANULOCYTE % (test % 0.0-5.0 code = IG%) LYMPHOCYTE % (test code = LY%) % 25.0-55.0 MONOCYTE % (test code = MO%) % 0.0-10.0 EOSINOPHIL % (test code = EO%) % 0.0-5.0 BASOPHIL % (test code = BA%) % 0.0-1.0 NEUTROPHIL # (test code = NT#) K/mm3 1.8-7.7 LYMPHOCYTE # (test code = LY#) K/mm3 1.0-5.0 MONOCYTE # (test code = MO#) K/mm3 0-0.8 EOSINOPHIL # (test code = EO#) K/mm3 0.0-0.5 BASOPHIL # (test code = BA#) K/mm3 0.0-0.2 [id number] 05:12:00 Test Item Value Reference Range Interpretation Comments GLYCOSYLATED HEMOGLOBIN 5.4 % HbA1 SUGG ESTED DIAGNOSIS: (HA1C) (test code = HbA1C GLYHGB) (%) ----- ----- Diab etic >6.4Prediabetes 5.7 - 6.4Normal <5.7 ESTIMATED AVERAGE 108 MG/DL GLUCOSE (test code = EAG) COMPREHENSIVE METABOLIC [id number] 05:02:00 Test Item Value Reference Range Interpretation Comments SODIUM (test code = NA) 141 mmol/L 136-145 N POTASSIUM (test code = K) 3.8 mmol/L 3.5-5.1 N CHLORIDE (test code = CL) 108.0 mmol/L 98-107 H CARBON DIOXIDE (test code = CO2) mmol/L 21-32 ANION GAP (test code = GAP) 10-20 GLUCOSE (test code = GLU) mg/dL 74-106 BLOOD UREA NITROGEN (test code = mg/dL 7-18 BUN) GLOMERULAR FILTRATION RATE (test mL/min >=60 code = GFR) CREATININE (test code = CREAT) mg/dL 0.55-1.02 BUN/CREATININE RATIO (test code 10-20 = BUN/CREA) TOTAL PROTEIN (test code = PROT) gram/dL 6.4-8.2 ALBUMIN (test code = ALB) g/dL 3.4-5.0 GLOBULIN (test code = GLOB) gram/dL 2.7-4.2 ALBUMIN/GLOBULIN RATIO (test 0.75-1.50 code = A/G) CALCIUM (test code = CA) mg/dL 8.5-10.1 BILIRUBIN TOTAL (test code = mg/dL 0.0-1.0 BILT) SGOT/AST (test code = AST) IUnit/L 15-37 SGPT/ALT (test code = ALT) IUnit/L 12-78 ALKALINE PHOSPHATASE TOTAL (test IUnit/L 45-117 code = ALKP) LIPID PROFILE (CORONARY RISK)2019-06-07 05:02:00 Test Item Value Reference Range Interpretation Comments TRIGLYCERIDES (test code = TRIG) mg/dL 20-150 CHOLESTEROL (test code = CHOL) mg/dL 0-200 CHOLESTEROL/HDL RATIO (test code = RATIO 0-4.9 CHOLHDL) HDL CHOLESTEROL (test code = HDL) mg/dL 40-60 LIPOPROTEIN LDL (test code = LDL) mg/dL 100-129 THYROID STIMULATING [id number] 05:02:00 Test Item Value Reference Range Interpretation Comments THYROID STIMULATING HORMONE (test uIU/mL 0.36-3.74 code = TSH) [id number] 23:10:00 Test Item Value Reference Range Interpretation Comments TROPONIN-I (test code = TROPI) <0.015 ng/mL 0-0.045 N COMMENTS TO HOT PRESS OPERATOR: COLLECT 3 HOURS AFTER PREVIOUS [id number] 19:14:00 Test Item Value Reference Range Interpretation Comments TROPONIN-I (test code = TROPI) <0.015 ng/mL 0-0.045 N COMMENTS TO HOT PRESS OPERATOR: COLLECT 3 HOURS AFTER PREVIOUS SAMPLEURINALYSIS [id number] 12:55:00 Test Item Value Reference Range Interpretation Comments UA COLOR (test code = Light-Yellow YELLOW COLU) UA APPEARANCE (test code CLEAR CLEAR = APPU) UA GLUCOSE DIPSTICK (test NEGATIVE mg/dL NEGATIVE code = DGLUU) UA BILIRUBIN DIPSTICK NEGATIVE mg/dL NEGATIVE (test code = BILU) UA KETONE DIPSTICK (test NEGATIVE mg/dL NEGATIVE code = KETU) UA SPECIFIC GRAVITY (test 1.010 1.001-1.035 code = SGU) UA BLOOD DIPSTICK (test Negative mg/dL NEGATIVE code = KELVIN) UA PH DIPSTICK (test code 7.0 5.0-8.0 = LAURA) UA PROTEIN DIPSTICK (test NEGATIVE mg/dL NEGATIVE code = PROU) UA UROBILINIOGEN DIPSTICK 2.0 (1+) mg/dL NEGATIVE A (test code = URO) UA NITRITE DIPSTICK (test NEGATIVE NEGATIVE code = LARRY) UA LEUKOCYTE ESTERASE W 25 Ruchi/uL (Trace) NEGATIVE A REFLEX (test code = Ruchi/uL LEUUR) UA WBC (test code = WBCU) 0-5 per HPF 0-5 UA RBC (test code = RBCU) 0-2 #/HPF 0-5 UA EPITHELIAL CELLS (test FEW per HPF FEW code = EPIU) UA BACTERIA (test code = FEW #/HPF NONE A BACU) UA MUCUS (test code = FEW #/LPF FEW MUCU) Urine Source? Clean CatchURINALYSIS [id number] 12:48:00 Test Item Value Reference Range Interpretation Comments UA COLOR (test code = Light-Yellow YELLOW COLU) UA APPEARANCE (test code CLEAR CLEAR = APPU) UA GLUCOSE DIPSTICK (test NEGATIVE mg/dL NEGATIVE code = DGLUU) UA BILIRUBIN DIPSTICK NEGATIVE mg/dL NEGATIVE (test code = BILU) UA KETONE DIPSTICK (test NEGATIVE mg/dL NEGATIVE code = KETU) UA SPECIFIC GRAVITY (test 1.010 1.001-1.035 code = SGU) UA BLOOD DIPSTICK (test Negative mg/dL NEGATIVE code = KELVIN) UA PH DIPSTICK (test code 7.0 5.0-8.0 = LAURA) UA PROTEIN DIPSTICK (test NEGATIVE mg/dL NEGATIVE code = PROU) UA UROBILINIOGEN DIPSTICK 2.0 (1+) mg/dL NEGATIVE A (test code = URO) UA NITRITE DIPSTICK (test NEGATIVE NEGATIVE code = LARRY) UA LEUKOCYTE ESTERASE W 25 Ruchi/uL (Trace) NEGATIVE A REFLEX (test code = Ruchi/uL LEUUR) UA WBC (test code = WBCU) per HPF 0-5 UA RBC (test code = RBCU) per HPF 0-5 UA EPITHELIAL CELLS (test per HPF Few code = EPIU) UA BACTERIA (test code = per HPF NONE BACU) Urine Source? Clean Catch- XR CHEST 1 [id number] 12:46:00 FAX: Amish Lai MD [phone] [place]: St: [facility] FAX: Buster An Name: DREWCASSANDRA [facility] : 1955 Age/S: 63/F [address] Unit #: [id number] Loc: [place] [address] Phys: Lindsey An DO Acct: Justin [id number] Dis Date: Status: REG ER PHONE #: [phone] Exam Date: 06/06/2019 1227 FAX #: [phone] Reason: dizziness EXAMS: CPT CODE: [id number] XR CHEST 1 V 36925 HISTORY: Dizziness. COMPARISON: May 18, 2019. Location: [facility]. No acuteinfiltrates, effusion or congestion is noted. Cardiomegaly. 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 IMPRESSION: No acute infiltrates, effusion or congestion. at 1246 Reported and signed by: Aristides Giordano M.D. CC: Amish De Anda MD; Lindsey An DO Technologist: [place](R); [place] HELM(R) Trnscrd Date/Time/By: 06/06/2019 (3286) : By: [email or web address] Orig Print D/T: S: 06/06/2019 (6495) PAGE 1 Signed ReportBASIC METABOLIC [id number] 12:35:00 Test Item Value Reference Range Interpretation Comments SODIUM (test code = 139 mmol/L 136-145 N NA) POTASSIUM (test code 3.6 mmol/L 3.5-5.1 N = K) CHLORIDE (test code = 103.0 mmol/L 98-107 N CL) CARBON DIOXIDE (test 29.0 mmol/L 21-32 N code = CO2) ANION GAP (test code 10.6 10-20 N = GAP) GLUCOSE (test code = 95 mg/dL 74-106 N GLU) BLOOD UREA NITROGEN 8 mg/dL 7-18 N (test code = BUN) GLOMERULAR FILTRATION 56 mL/min >=60 Estima roberto GFR by RATE (test code = using Samy fied MDRD GFR) formula.Chronic kidney disease is defined as [facility] kidney damageor GFR <60 mL/min/1.73 m2 for >3 months. CREATININE (test code 1.00 mg/dL 0.55-1.02 N Note change in = CREAT) reference range due to change in reagent. BUN/CREATININE RATIO 8.0 10-20 L (test code = BUN/CREA) CALCIUM (test code = 9.1 mg/dL 8.5-10.1 N CA) HEPATIC FUNCTION [id number] 12:35:00 Test Item Value Reference Range Interpretation Comments TOTAL PROTEIN (test 7.9 gram/dL 6.4-8.2 N code = PROT) ALBUMIN (test code = 3.2 g/dL 3.4-5.0 L ALB) GLOBULIN (test code = 4.7 gram/dL 2.7-4.2 H GLOB) ALBUMIN/GLOBULIN RATIO 0.7 0.75-1.50 L (test code = A/G) BILIRUBIN TOTAL (test 0.50 mg/dL 0.0-1.0 N code = BILT) BILIRUBIN DIRECT (test 0.16 mg/dL 0.0-0.20 N code = BILD) SGOT/AST (test code = 9 IUnit/L 15-37 L AST) SGPT/ALT (test code = 21 IUnit/L 12-78 N ALT) ALKALINE PHOSPHATASE 146 IUnit/L 45-117 H Note change in TOTAL (test code = reference range due ALKP) to change in reagent. [id number] 12:35:00 Test Item Value Reference Range Interpretation Comments TROPONIN-I (test code = TROPI) <0.015 ng/mL 0-0.045 N BASIC METABOLIC [id number] 12:30:00 Test Item Value Reference Range Interpretation Comments SODIUM (test code = NA) 139 mmol/L 136-145 N POTASSIUM (test code = K) 3.6 mmol/L 3.5-5.1 N CHLORIDE (test code = CL) 103.0 mmol/L 98-107 N CARBON DIOXIDE (test code = CO2) mmol/L 21-32 ANION GAP (test code = GAP) 10-20 GLUCOSE (test code = GLU) mg/dL 74-106 BLOOD UREA NITROGEN (test code = mg/dL 7-18 BUN) GLOMERULAR FILTRATION RATE (test mL/min >=60 code = GFR) CREATININE (test code = CREAT) mg/dL 0.55-1.02 BUN/CREATININE RATIO (test code 10-20 = BUN/CREA) CALCIUM (test code = CA) mg/dL 8.5-10.1 HEPATIC FUNCTION [id number] 12:30:00 Test Item Value Reference Range Interpretation Comments TOTAL PROTEIN (test code = PROT) gram/dL 6.4-8.2 ALBUMIN (test code = ALB) g/dL 3.4-5.0 GLOBULIN (test code = GLOB) gram/dL 2.7-4.2 ALBUMIN/GLOBULIN RATIO (test code = 0.75-1.50 A/G) BILIRUBIN TOTAL (test code = BILT) mg/dL 0.0-1.0 BILIRUBIN DIRECT (test code = BILD) mg/dL 0.0-0.20 SGOT/AST (test code = AST) IUnit/L 15-37 SGPT/ALT (test code = ALT) IUnit/L 12-78 ALKALINE PHOSPHATASE TOTAL (test IUnit/L 45-117 code = ALKP) [id number] 12:30:00 Test Item Value Reference Range Interpretation Comments TROPONIN-I (test code = TROPI) ng/mL 0-0.045 CBC W/O [id number] 12:24:00 Test Item Value Reference Range Interpretation Comments WHITE BLOOD CELL (test code = 8.4 K/mm3 4.5-12.5 N WBC) RED BLOOD CELL (test code = 3.97 mill/mm3 3.7-5.2 N RBC) HEMOGLOBIN (test code = HGB) 13.0 gram/dL 11.5-15.5 N HEMATOCRIT (test code = HCT) 38.3 % 36.0-46.0 N MEAN CELL VOLUME (test code = 96.5 fL 80-98 N MCV) MEAN CELL HGB (test code = MCH) 32.7 picogram 27.0-33.0 N MEAN CELL HGB CONCETRATION 33.9 gram/dL 33.0-36.0 N (test code = MCHC) RED CELL DISTRIBUTION WIDTH 11.5 % 11.6-16.2 L (test code = RDW) PLATELET COUNT (test code = 274 K/mm3 150-450 N PLT) MEAN PLATELET VOLUME (test code 9.8 fL 6.7-11.0 N = MPV) CBC W/O [id number] 12:21:00 Test Item Value Reference Range Interpretation Comments WHITE BLOOD CELL (test code = K/mm3 4.5-12.5 WBC) RED BLOOD CELL (test code = RBC) mill/mm3 3.7-5.2 HEMOGLOBIN (test code = HGB) 13.0 gram/dL 11.5-15.5 N HEMATOCRIT (test code = HCT) 38.3 % 36.0-46.0 N MEAN CELL VOLUME (test code = fL 80-98 MCV) MEAN CELL HGB (test code = MCH) picogram 27.0-33.0 MEAN CELL HGB CONCETRATION (test gram/dL 33.0-36.0 code = MCHC) RED CELL DISTRIBUTION WIDTH % 11.6-16.2 (test code = RDW) PLATELET COUNT (test code = PLT) K/mm3 150-450 MEAN PLATELET VOLUME (test code fL 6.7-11.0 = MPV) - CT HEAD/BRAIN W/O [id number] 11:04:00 Name: CASSANDRA TORRES [facility] : 1955 Age/S: 63 / F [address] Unit #: [id number] Loc: [place] [address] Phys: Lindsey An DO Acct: [id number] Dis Date: Status: REG ER PHONE #: [phone] Exam Date: 06/06/2019 1053 FAX #: [phone] Reason: dizziness EXAMS: CPTCODE: [id number] CT HEAD/BRAIN W/O CONT 32808 HISTORY: Dizziness. COMPARISON: None available. Location: [facility]. CT brain without contrast: Automated exposure control. No acute intracranial bleeds or extra-axial collections are noted. No acute territorial vascular infarction is noted. Shunt catheter from a high right parietal approach with the tip crossing the midline and residing within the left basal ganglia. Normal caliber ventricular system. The sulci, gyri, ventricles and subarachnoid spaces and the basilar cisterns are normal for patient's age. No herniation or hydrocephalus or midline shift is noted. Mild periventricular ischemic gliosis is noted. Age-appropriate atrophy is noted as well. Portions of the visualized paranasal sinuses are normal. No obvious bony calvarial defect is noted. IMPRESSION: No acute intracranial bleeds or extra-axial collections. Shunt catheter from a high right parietal approach with the tip crossing the midline and residing within the left basal ganglia. Normal caliber ventricular system. No acute territorial vascular infarction. No herniation or hydrocephalus or midline shift. Chronic white matter ischemic disease and atrophy . at 1104 Reported and signed by: Aristides Giordano M.D. PAGE 1 Signed Report (CONTINUED) Name: CASSANDRA COLVIN [facility] : 1955 Age/S: 63 / F [address] Unit #: [id number] Loc: [place] [address] Phys: Lindsey An DO Acct:[id number] Dis Date: Status: REG ER PHONE #: [phone] Exam Date: 06/06/2019 1053 FAX #: [phone] Reason: dizziness EXAMS: CPT CODE: [id number] CT HEAD/BRAIN W/O CONT 53681 <Continued> CC: Amish De Anda MD; Lindsey An DO Technologist:Tato Mayes RT(R),(MR),(CT); CTDI: DLP: Trnscb Date/Time: 06/06/2019 (1104) t.[email or web address] Orig Print D/T: S: 06/06/2019 (4667) PAGE 2 Signed ReportBASI METABOLIC [id number] 16:50:00 Test Item Value Reference Range Interpretation Comments SODIUM (test code = 141 mmol/L 136-145 N NA) POTASSIUM (test code 3.5 mmol/L 3.5-5.1 N = K) CHLORIDE (test code = 106.0 mmol/L 98-107 N CL) CARBON DIOXIDE (test 30.0 mmol/L 21-32 N code = CO2) ANION GAP (test code 8.5 10-20 L = GAP) GLUCOSE (test code = 102 mg/dL 74-106 N GLU) BLOOD UREA NITROGEN 11 mg/dL 7-18 N (test code = BUN) GLOMERULAR FILTRATION 50 mL/min >=60 Estima roberto GFR by RATE (test code = using Samy fied MDRD GFR) formula.Chronic kidney disease is defined as eith er kidney damageor GFR <60 mL/min/1.73 m2 for >3 months. CREATININE (test code 1.10 mg/dL 0.55-1.02 H Note change in = CREAT) reference range due to change in reagent. BUN/CREATININE RATIO 10.0 10-20 N (test code = BUN/CREA) CALCIUM (test code = 8.8 mg/dL 8.5-10.1 N CA) PATIENT IS HARDSTICK FIRST SET OF TUBES HEMOLYZED. HYA 8673STUCK MULTIPLE TIMES ALREADY.V.LAB.MT 05/18/19 [id number] 16:50:00 Test Item Value Reference Range Interpretation Comments TROPONIN-I (test code = TROPI) <0.015 ng/mL 0-0.045 N PATIENT IS HARDSTICK FIRST SET OF TUBES HEMOLYZED. HYA 8673STUCK MULTIPLE TIMES ALREADY.V.LAB.MT 05/18/19 1535BASIC METABOLIC [id number] 16:41:00 Test Item Value Reference Range Interpretation Comments SODIUM (test code = NA) 141 mmol/L 136-145 N POTASSIUM (test code = K) 3.5 mmol/L 3.5-5.1 N CHLORIDE (test code = CL) 106.0 mmol/L 98-107 N CARBON DIOXIDE (test code = CO2) mmol/L 21-32 ANION GAP (test code = GAP) 10-20 GLUCOSE (test code = GLU) mg/dL 74-106 BLOOD UREA NITROGEN (test code = mg/dL 7-18 BUN) GLOMERULAR FILTRATION RATE (test mL/min >=60 code = GFR) CREATININE (test code = CREAT) mg/dL 0.55-1.02 BUN/CREATININE RATIO (test code 10-20 = BUN/CREA) CALCIUM (test code = CA) mg/dL 8.5-10.1 PATIENT IS HARDSTICK FIRST SET OF TUBES HEMOLYZED. HYA 8673STUCK MULTIPLE TIMES ALREADY.V.LAB.MT 05/18/19 [id number] 16:41:00 Test Item Value Reference Range Interpretation Comments TROPONIN-I (test code = TROPI) ng/mL 0-0.045 PATIENT IS HARDSTICK FIRST SET OF TUBES HEMOLYZED. HYA 8673STUCK MULTIPLE TIMES ALREADY.V.LAB.MT 05/18/19 1535B-TYPE NATRIURETIC [id number] 16:04:00 Test Item Value Reference Range Interpretation Comments B-TYPE NATRIURETIC PEPTIDE 38.56 pgram/mL 0-100 N (test code = BNP) PROTHROMBIN [id number] 15:43:00 Test Item Value Reference Range Interpretation Comments PROTHROMBIN TIME 11.6 seconds 9.0-14.0 N PATIENT (test code = PTP) INTERNATIONAL NORMAL 1.0 0.8-1.2 N The the rapeutic range RATIO (test code = for oral INR) anticoagulant t herapy formost indicat ions is an internati onal normalized rati o (INR)of between 2.0 and 3.0. The recommended therapeutic INR range for various cli nical situations is l isted below: Clinical Situat ion INR range Pulmonary embol ism treatment (2.0-3.0)Venou s thrombosis treatmentVenous thrombosis prophylaxis (hi gh risk surgery)Prevent ion of systemic emboli sm from: A cute myocardial infa rction Valvula r heart disease Atrial fibrilla tion Mechanical pros thetic heart valves (2.5-3.5) IS PATIENT ON ANTICOAGULANTS? NTHROMBOPLASTIN TIME [id number] 15:43:00 Test Item Value Reference Range Interpretation Comments THROMBOPLASTIN TIME PARTIAL 36.8 seconds 25.0-36.5 H (test code = PTT) IS PATIENT ON ANTICOAGULANTS? NCBC W/O [id number] 15:29:00 Test Item Value Reference Range Interpretation Comments WHITE BLOOD CELL (test code = 9.1 K/mm3 4.5-12.5 N WBC) RED BLOOD CELL (test code = 4.28 mill/mm3 3.7-5.2 N RBC) HEMOGLOBIN (test code = HGB) 14.1 gram/dL 11.5-15.5 N HEMATOCRIT (test code = HCT) 41.4 % 36.0-46.0 N MEAN CELL VOLUME (test code = 96.7 fL 80-98 N MCV) MEAN CELL HGB (test code = MCH) 32.9 picogram 27.0-33.0 N MEAN CELL HGB CONCETRATION 34.1 gram/dL 33.0-36.0 N (test code = MCHC) RED CELL DISTRIBUTION WIDTH 11.6 % 11.6-16.2 N (test code = RDW) PLATELET COUNT (test code = 270 K/mm3 150-450 N PLT) MEAN PLATELET VOLUME (test code 9.7 fL 6.7-11.0 N = MPV) CBC W/O [id number] 15:27:00 Test Item Value Reference Range Interpretation Comments WHITE BLOOD CELL (test code = K/mm3 4.5-12.5 WBC) RED BLOOD CELL (test code = RBC) mill/mm3 3.7-5.2 HEMOGLOBIN (test code = HGB) 14.1 gram/dL 11.5-15.5 N HEMATOCRIT (test code = HCT) 41.4 % 36.0-46.0 N MEAN CELL VOLUME (test code = fL 80-98 MCV) MEAN CELL HGB (test code = MCH) picogram 27.0-33.0 MEAN CELL HGB CONCETRATION (test gram/dL 33.0-36.0 code = MCHC) RED CELL DISTRIBUTION WIDTH % 11.6-16.2 (test code = RDW) PLATELET COUNT (test code = PLT) K/mm3 150-450 MEAN PLATELET VOLUME (test code fL 6.7-11.0 = MPV) - XR CHEST 1 [id number] 14:39:00 FAX: Amish Lai MD [phone] [place]: B St: PRE FAX: Buster An Name: CASSANDRA TORRES [facility] : 1955 Age/S: 63/F [address] Unit #: [id number] Loc: [place] [address] Phys: Lindsey An DO Acct: [id number] Dis Date: Status: PRE ER PHONE #: [phone] Exam Date: 05/18/2019 1432 FAX #: [phone] Reason: Shortness of Breath EXAMS: CPT CODE: [id number] XR CHEST 1 V 25766 HISTORY: Shortness of Breath TECHNIQUE: AP chest x-ray COMPARISON: 05/09/19 FINDINGS: No airspace consolidation or pleural effusion. Cardiomegaly. Tortuous thoracic aorta with vascular calcification. [employer] shunt projected over the midline chest and upper abdomen. Degenerative changes of the spine. IMPRESSION: No acute findings or significant interval change.. LOCATION: at 1439 Reported and signed by: Janis Stubbs D.O. CC: Amish De Anda MD; Lindsey An DOTechnologist: KAREEM SHAH RT(R) Trnscrd Date/Time/By: 05/18/2019 (7200) : By: [email or web address] Orig Print D/T: S: 05/18/2019 (1280) PAGE1 Signed ReportBASI METABOLIC [id number] 11:52:00 Test Item Value Reference Range Interpretation Comments SODIUM (test code = 139 mmol/L 136-145 N NA) POTASSIUM (test code 3.9 mmol/L 3.5-5.1 N = K) CHLORIDE (test code = 108.0 mmol/L 98-107 H CL) CARBON DIOXIDE (test 25.0 mmol/L 21-32 N code = CO2) ANION GAP (test code 9.9 10-20 L = GAP) GLUCOSE (test code = 97 mg/dL 74-106 N GLU) BLOOD UREA NITROGEN 10 mg/dL 7-18 N (test code = BUN) GLOMERULAR FILTRATION 50 mL/min >=60 Estima roberto GFR by RATE (test code = using Samy fied MDRD GFR) formula.Chronic kidney disease is defined as eith er kidney damageor GFR <60 mL/min/1.73 m2 for >3 months. CREATININE (test code 1.10 mg/dL 0.55-1.02 H Note change in = CREAT) reference range due to change in reagent. BUN/CREATININE RATIO 9.1 10-20 L (test code = BUN/CREA) CALCIUM (test code = 8.7 mg/dL 8.5-10.1 N CA) [id number] 11:52:00 Test Item Value Reference Range Interpretation Comments TROPONIN-I (test code = TROPI) <0.015 ng/mL 0-0.045 N B-TYPE NATRIURETIC [id number] 11:51:00 Test Item Value Reference Range Interpretation Comments B-TYPE NATRIURETIC PEPTIDE (test 20.1 pg/mL 0-100 N code = BNP) CBC W/O [id number] 10:42:00 Test Item Value Reference Range Interpretation Comments WHITE BLOOD CELL (test code = 10.0 K/mm3 4.5-12.5 N WBC) RED BLOOD CELL (test code = 4.31 mill/mm3 3.7-5.2 N RBC) HEMOGLOBIN (test code = HGB) 14.3 gram/dL 11.5-15.5 N HEMATOCRIT (test code = HCT) 41.9 % 36.0-46.0 N MEAN CELL VOLUME (test code = 97.2 fL 80-98 N MCV) MEAN CELL HGB (test code = MCH) 33.2 picogram 27.0-33.0 H MEAN CELL HGB CONCETRATION 34.1 gram/dL 33.0-36.0 N (test code = MCHC) RED CELL DISTRIBUTION WIDTH 11.6 % 11.6-16.2 N (test code = RDW) PLATELET COUNT (test code = 239 K/mm3 150-450 N PLT) MEAN PLATELET VOLUME (test code 10.0 fL 6.7-11.0 N = MPV) CBC W/O [id number] 10:34:00 Test Item Value Reference Range Interpretation Comments WHITE BLOOD CELL (test code = K/mm3 4.5-12.5 WBC) RED BLOOD CELL (test code = RBC) mill/mm3 3.7-5.2 HEMOGLOBIN (test code = HGB) 14.3 gram/dL 11.5-15.5 N HEMATOCRIT (test code = HCT) 41.9 % 36.0-46.0 N MEAN CELL VOLUME (test code = fL 80-98 MCV) MEAN CELL HGB (test code = MCH) picogram 27.0-33.0 MEAN CELL HGB CONCETRATION (test gram/dL 33.0-36.0 code = MCHC) RED CELL DISTRIBUTION WIDTH % 11.6-16.2 (test code = RDW) PLATELET COUNT (test code = PLT) K/mm3 150-450 MEAN PLATELET VOLUME (test code fL 6.7-11.0 = MPV) - XR CHEST 1 [id number] 09:35:00 FAX: Stuart Saldivar [phone] [place]: St: PRE FAX: Amish Lai MD [phone] Name: CASSANDRA TORRES [facility] : 1955 Age/S: 63[facility] [address] [facility] Unit #: [id number] Loc: [place] [address] Phys: Stuart Spivey MD Acct: [id number] Dis Date: Status: PRE ER PHONE #: [phone] Exam Date: 05/09/2019924 FAX #: [phone] Reason: Shortness of Breath EXAMS: CPT CODE: [id number] XR CHEST 1 V 44216 REASON FOR EXAM: Shortness of Breath Exam Order Date: 05/09/2019 9:10 AM Ordering M.Jeannine: Stuart Spivey MD PROCEDURE: - XR CHEST 1 V COMPARISON: Chest x-ray February 04, 2018 FINDINGS: The lungs are clear. There is no pleural effusion or pneumothorax. Pulmonary vascularity is within normal limits. Cardiomediastinal silhouette is normal in size for technique. The mediastinal contours are within normallimits. Skeletal structures are within normal limits. Ventriculoperitoneal shuntcatheter is unchanged in position. The visualized upper abdomen is within normal limits. IMPRESSION: No acute cardiopulmonary process. Location: [facility] at 0935 Reported and signed by: Seth Darling MD CC: Stuart Spivey MD; Amish De Anda MD Technologist: [place](R) Trnscrd Date/Time/By: 05/09/2019 (0967) : By: [email or web address] Orig Print D/T: S: 05/09/2019 (0395) PAGE 1 Signed ReportBASIC METABOLIC [id number] 23:08:00 Test Item Value Reference Range Interpretation Comments SODIUM (test code = 139 mmol/L 136-145 N NA) POTASSIUM (test code 3.5 mmol/L 3.5-5.1 N = K) CHLORIDE (test code = 106.0 mmol/L 98-107 N CL) CARBON DIOXIDE (test 28.0 mmol/L 21-32 N code = CO2) ANION GAP (test code 8.5 10-20 L = GAP) GLUCOSE (test code = 108 mg/dL 74-106 H GLU) BLOOD UREA NITROGEN 8 mg/dL 7-18 N (test code = BUN) GLOMERULAR FILTRATION 50 mL/min >=60 Estima roberto GFR by RATE (test code = using Samy fied MDRD GFR) formula.Chronic kidney disease is defined as [facility] er kidney damageor GFR <60 mL/min/1.73 m2 for >3 months. CREATININE (test code 1.10 mg/dL 0.55-1.02 H Note change in = CREAT) reference range due to change in reagent. BUN/CREATININE RATIO 7.3 10-20 L (test code = BUN/CREA) CALCIUM (test code = 9.3 mg/dL 8.5-10.1 N CA) BASIC METABOLIC [id number] 23:05:00 Test Item Value Reference Range Interpretation Comments SODIUM (test code = NA) 139 mmol/L 136-145 N POTASSIUM (test code = K) 3.5 mmol/L 3.5-5.1 N CHLORIDE (test code = CL) 106.0 mmol/L 98-107 N CARBON DIOXIDE (test code = CO2) mmol/L 21-32 ANION GAP (test code = GAP) 10-20 GLUCOSE (test code = GLU) mg/dL 74-106 BLOOD UREA NITROGEN (test code = mg/dL 7-18 BUN) GLOMERULAR FILTRATION RATE (test mL/min >=60 code = GFR) CREATININE (test code = CREAT) mg/dL 0.55-1.02 BUN/CREATININE RATIO (test code 10-20 = BUN/CREA) CALCIUM (test code = CA) mg/dL 8.5-10.1 URINALYSIS [id number] 22:30:00 Test Item Value Reference Range Interpretation Comments UA COLOR (test code = COLORLESS YELLOW A COLU) UA APPEARANCE (test code CLEAR CLEAR = APPU) UA GLUCOSE DIPSTICK (test NEGATIVE mg/dL NEGATIVE code = DGLUU) UA BILIRUBIN DIPSTICK NEGATIVE mg/dL NEGATIVE (test code = BILU) UA KETONE DIPSTICK (test NEGATIVE mg/dL NEGATIVE code = KETU) UA SPECIFIC GRAVITY (test 1.004 1.001-1.035 code = SGU) UA BLOOD DIPSTICK (test Negative mg/dL NEGATIVE code = KELVIN) UA PH DIPSTICK (test code 6.5 5.0-8.0 = LAURA) UA PROTEIN DIPSTICK (test NEGATIVE mg/dL NEGATIVE code = PROU) UA UROBILINIOGEN DIPSTICK Normal mg/dL NEGATIVE (test code = URO) UA NITRITE DIPSTICK (test NEGATIVE NEGATIVE code = LARRY) UA LEUKOCYTE ESTERASE W 250 Ruchi/uL (2+) NEGATIVE A REFLEX (test code = Ruchi/uL LEUUR) UA WBC (test code = WBCU) 11-20 per HPF 0-5 A UA RBC (test code = RBCU) 0-2 #/HPF 0-5 UA EPITHELIAL CELLS (test FEW per HPF FEW code = EPIU) UA BACTERIA (test code = MODERATE #/HPF NONE A BACU) Urine Source? Clean CatchURINALYSIS [id number] 11:50:00 Test Item Value Reference Range Interpretation Comments UA COLOR (test code = Light-Yellow YELLOW COLU) UA APPEARANCE (test code CLEAR CLEAR = APPU) UA GLUCOSE DIPSTICK (test NEGATIVE mg/dL NEGATIVE code = DGLUU) UA BILIRUBIN DIPSTICK NEGATIVE mg/dL NEGATIVE (test code = BILU) UA KETONE DIPSTICK (test NEGATIVE mg/dL NEGATIVE code = KETU) UA SPECIFIC GRAVITY (test 1.007 1.001-1.035 code = SGU) UA BLOOD DIPSTICK (test Negative mg/dL NEGATIVE code = KELVIN) UA PH DIPSTICK (test code 6.5 5.0-8.0 = LAURA) UA PROTEIN DIPSTICK (test NEGATIVE mg/dL NEGATIVE code = PROU) UA UROBILINIOGEN DIPSTICK Normal mg/dL NEGATIVE (test code = URO) UA NITRITE DIPSTICK (test POSITIVE NEGATIVE A code = LARRY) UA LEUKOCYTE ESTERASE W 250 Ruchi/uL (2+) NEGATIVE A REFLEX (test code = Ruchi/uL LEUUR) UA WBC (test code = WBCU) 11-20 per HPF 0-5 A UA RBC (test code = RBCU) 0-2 #/HPF 0-5 UA EPITHELIAL CELLS (test FEW per HPF FEW code = EPIU) UA BACTERIA (test code = FEW #/HPF NONE A BACU) UA MUCUS (test code = FEW #/LPF FEW MUCU) Urine Source? Clean CatchURINALYSIS [id number] 11:49:00 Test Item Value Reference Range Interpretation Comments UA COLOR (test code = Light-Yellow YELLOW COLU) UA APPEARANCE (test code CLEAR CLEAR = APPU) UA GLUCOSE DIPSTICK (test NEGATIVE mg/dL NEGATIVE code = DGLUU) UA BILIRUBIN DIPSTICK NEGATIVE mg/dL NEGATIVE (test code = BILU) UA KETONE DIPSTICK (test NEGATIVE mg/dL NEGATIVE code = KETU) UA SPECIFIC GRAVITY (test 1.007 1.001-1.035 code = SGU) UA BLOOD DIPSTICK (test Negative mg/dL NEGATIVE code = KELVIN) UA PH DIPSTICK (test code 6.5 5.0-8.0 = LAURA) UA PROTEIN DIPSTICK (test NEGATIVE mg/dL NEGATIVE code = PROU) UA UROBILINIOGEN DIPSTICK Normal mg/dL NEGATIVE (test code = URO) UA NITRITE DIPSTICK (test POSITIVE NEGATIVE A code = LARRY) UA LEUKOCYTE ESTERASE W 250 Ruchi/uL (2+) NEGATIVE A REFLEX (test code = Ruchi/uL LEUUR) UA WBC (test code = WBCU) per HPF 0-5 UA RBC (test code = RBCU) per HPF 0-5 UA EPITHELIAL CELLS (test per HPF Few code = EPIU) UA BACTERIA (test code = per HPF NONE BACU) Urine Source? Clean CatchBASIC METABOLIC [id number] 11:12:00 Test Item Value Reference Range Interpretation Comments SODIUM (test code = 138 mmol/L 136-145 N NA) POTASSIUM (test code 3.9 mmol/L 3.5-5.1 N = K) CHLORIDE (test code = 107.0 mmol/L 98-107 N CL) CARBON DIOXIDE (test 26.0 mmol/L 21-32 N code = CO2) ANION GAP (test code 8.9 10-20 L = GAP) GLUCOSE (test code = 103 mg/dL 74-106 N GLU) BLOOD UREA NITROGEN 10 mg/dL 7-18 N (test code = BUN) GLOMERULAR FILTRATION 50 mL/min >=60 Estima roberto GFR by RATE (test code = using Samy fied MDRD GFR) formula.Chronic kidney disease is defined as [facility] kidney damageor GFR <60 mL/min/1.73 m2 for >3 months. CREATININE (test code 1.10 mg/dL 0.55-1.02 H Note change in = CREAT) reference range due to change in reagent. BUN/CREATININE RATIO 9.1 10-20 L (test code = BUN/CREA) CALCIUM (test code = 9.0 mg/dL 8.5-10.1 N CA) [id number] 11:12:00 Test Item Value Reference Range Interpretation Comments TROPONIN-I (test code = TROPI) <0.015 ng/mL 0-0.045 N BASIC METABOLIC [id number] 10:55:00 Test Item Value Reference Range Interpretation Comments SODIUM (test code = NA) 138 mmol/L 136-145 N POTASSIUM (test code = K) 3.9 mmol/L 3.5-5.1 N CHLORIDE (test code = CL) 107.0 mmol/L 98-107 N CARBON DIOXIDE (test code = CO2) mmol/L 21-32 ANION GAP (test code = GAP) 10-20 GLUCOSE (test code = GLU) mg/dL 74-106 BLOOD UREA NITROGEN (test code = mg/dL 7-18 BUN) GLOMERULAR FILTRATION RATE (test mL/min >=60 code = GFR) CREATININE (test code = CREAT) mg/dL 0.55-1.02 BUN/CREATININE RATIO (test code 10-20 = BUN/CREA) CALCIUM (test code = CA) mg/dL 8.5-10.1 [id number] 10:55:00 Test Item Value Reference Range Interpretation Comments TROPONIN-I (test code = TROPI) ng/mL 0-0.045 CBC W/O [id number] 10:46:00 Test Item Value Reference Range Interpretation Comments WHITE BLOOD CELL (test code = 8.9 K/mm3 4.5-12.5 N WBC) RED BLOOD CELL (test code = 4.37 mill/mm3 3.7-5.2 N RBC) HEMOGLOBIN (test code = HGB) 14.6 gram/dL 11.5-15.5 N HEMATOCRIT (test code = HCT) 42.6 % 36.0-46.0 N MEAN CELL VOLUME (test code = 97.5 fL 80-98 N MCV) MEAN CELL HGB (test code = MCH) 33.4 picogram 27.0-33.0 H MEAN CELL HGB CONCETRATION 34.3 gram/dL 33.0-36.0 N (test code = MCHC) RED CELL DISTRIBUTION WIDTH 11.7 % 11.6-16.2 N (test code = RDW) PLATELET COUNT (test code = 240 K/mm3 150-450 N PLT) MEAN PLATELET VOLUME (test code 9.6 fL 6.7-11.0 N = MPV) CBC W/O [id number] 10:45:00 Test Item Value Reference Range Interpretation Comments WHITE BLOOD CELL (test code = K/mm3 4.5-12.5 WBC) RED BLOOD CELL (test code = RBC) mill/mm3 3.7-5.2 HEMOGLOBIN (test code = HGB) 14.6 gram/dL 11.5-15.5 N HEMATOCRIT (test code = HCT) 42.6 % 36.0-46.0 N MEAN CELL VOLUME (test code = fL 80-98 MCV) MEAN CELL HGB (test code = MCH) picogram 27.0-33.0 MEAN CELL HGB CONCETRATION (test gram/dL 33.0-36.0 code = MCHC) RED CELL DISTRIBUTION WIDTH % 11.6-16.2 (test code = RDW) PLATELET COUNT (test code = PLT) K/mm3 150-450 MEAN PLATELET VOLUME (test code fL 6.7-11.0 = MPV) - XR FOOT 3 + V [id number] 05:39:00 FAX: Richie Le [place]: B St: REG FAX: Amish Lai MD [phone] Name: CASSANDRA TORRES [facility] : 1955 Age/S: 63/F [address] Unit #: [id number] Loc: [place], [place] [address] Phys: Richie Le MD Acct: [id number] Dis Date: Status: REG ER PHONE #: [phone] Exam Date: 11/01/2018 0505 FAX #: [phone] Reason: pain, distal EXAMS: CPT CODE: [id number] XR FOOT 3 + V [id number] Location: T 18 Left foot x-ray, 3 views conducted on 11/01/18 CLINICAL HISTORY: Left foot pain FINDINGS: Do not see a fracture or stress fracture. Normal alignment is seen. Joint spaces are fairly well maintained. No appreciable calcaneal spurringis seen. Do not see any findings suggestive of AVN. IMPRESSION: Unremarkable left foot exam. at 0539 Reported and signed by: Mary Carmen Rivera M.D. CC: Richie Le MD; Amish De Anda MD Technologist: RT HERIBERTO TrnscrdDate/Time/By: 11/01/2018 (0539) : By: [email or web address] Orig Print D/T: S: 11/01/2018 (0542) PAGE 1 Signed ReportBASIC METABOLIC [id number] 12:58:00 Test Item Value Reference Range Interpretation Comments SODIUM (test code = 142 mmol/L 136-145 N NA) POTASSIUM (test code 4.2 mmol/L 3.5-5.1 N = K) CHLORIDE (test code = 112.0 mmol/L 98-107 H CL) CARBON DIOXIDE (test 26.0 mmol/L 21-32 N code = CO2) ANION GAP (test code 8.2 10-20 L = GAP) GLUCOSE (test code = 86 mg/dL 74-106 N GLU) BLOOD UREA NITROGEN 10 mg/dL 7-18 N (test code = BUN) GLOMERULAR FILTRATION 56 mL/min >=60 Estima roberto GFR by RATE (test code = using Samy fied MDRD GFR) formula.Chronic kidney disease is defined as eith er kidney damageor GFR <60 mL/min/1.73 m2 for >3 months. CREATININE (test code 1.00 mg/dL 0.55-1.02 N Note change in = CREAT) reference range due to change in reagent. BUN/CREATININE RATIO 10.5 10-20 N (test code = BUN/CREA) CALCIUM (test code = 8.4 mg/dL 8.5-10.1 L CA) [id number] 12:58:00 Test Item Value Reference Range Interpretation Comments PHOSPHORUS (test code = PHOS) 3.3 mg/dL 2.5-4.9 N [id number] 12:58:00 Test Item Value Reference Range Interpretation Comments MAGNESIUM (test code = MAG) 2.3 mg/dL 1.8-2.4 N THYROID STIMULATING [id number] 20:49:00 Test Item Value Reference Range Interpretation Comments THYROID STIMULATING 3.720 uIU/mL 0.36-3.74 N TSH REFE RENCE HORMONE (test code = RANGES: EUTHYROID: TSH) 0.35 - 4.3 mIU/mL HYPO : > 5.5 mIU/mL HYPER : < 0.35 mIU/mL URINALYSIS [id number] 16:50:00 Test Item Value Reference Range Interpretation Comments UA COLOR (test code = COLU) Light-Yellow YELLOW UA APPEARANCE (test code = CLEAR CLEAR APPU) UA GLUCOSE DIPSTICK (test NEGATIVE mg/dL NEGATIVE code = DGLUU) UA BILIRUBIN DIPSTICK (test NEGATIVE mg/dL NEGATIVE code = BILU) UA KETONE DIPSTICK (test code NEGATIVE mg/dL NEGATIVE = KETU) UA SPECIFIC GRAVITY (test 1.007 1.001-1.035 code = SGU) UA BLOOD DIPSTICK (test code Negative mg/dL NEGATIVE = KELVIN) UA PH DIPSTICK (test code = 6.5 5.0-8.0 LAURA) UA PROTEIN DIPSTICK (test NEGATIVE mg/dL NEGATIVE code = PROU) UA UROBILINIOGEN DIPSTICK Normal mg/dL NEGATIVE (test code = URO) UA NITRITE DIPSTICK (test NEGATIVE NEGATIVE code = LARRY) UA LEUKOCYTE ESTERASE W NEGATIVE Ruchi/uL NEGATIVE REFLEX (test code = LEUUR) UA WBC (test code = WBCU) 0-5 per HPF 0-5 UA RBC (test code = RBCU) 0-2 #/HPF 0-5 UA EPITHELIAL CELLS (test FEW per HPF FEW code = EPIU) UA BACTERIA (test code = FEW #/HPF NONE A BACU) Urine Source? Clean CatchBASIC METABOLIC [id number] 15:40:00 Test Item Value Reference Range Interpretation Comments SODIUM (test code = 139 mmol/L 136-145 N NA) POTASSIUM (test code 3.8 mmol/L 3.5-5.1 N = K) CHLORIDE (test code = 104.0 mmol/L 98-107 N CL) CARBON DIOXIDE (test 27.0 mmol/L 21-32 N code = CO2) ANION GAP (test code 11.8 10-20 N = GAP) GLUCOSE (test code = 84 mg/dL 74-106 N GLU) BLOOD UREA NITROGEN 10 mg/dL 7-18 N (test code = BUN) GLOMERULAR FILTRATION 45 mL/min >=60 Estima roberto GFR by RATE (test code = using Samy fied MDRD GFR) formula.Chronic kidney disease is defined as [facility] kidney damageor GFR <60 mL/min/1.73 m2 for >3 months. CREATININE (test code 1.20 mg/dL 0.55-1.02 H Note change in = CREAT) reference range due to change in reagent. BUN/CREATININE RATIO 8.3 10-20 L (test code = BUN/CREA) CALCIUM (test code = 8.9 mg/dL 8.5-10.1 N CA) [id number] 15:40:00 Test Item Value Reference Range Interpretation Comments TROPONIN-I (test code = TROPI) <0.015 ng/mL 0-0.045 N BASIC METABOLIC [id number] 15:33:00 Test Item Value Reference Range Interpretation Comments SODIUM (test code = NA) 139 mmol/L 136-145 N POTASSIUM (test code = K) 3.8 mmol/L 3.5-5.1 N CHLORIDE (test code = CL) 104.0 mmol/L 98-107 N CARBON DIOXIDE (test code = CO2) mmol/L 21-32 ANION GAP (test code = GAP) 10-20 GLUCOSE (test code = GLU) mg/dL 74-106 BLOOD UREA NITROGEN (test code = mg/dL 7-18 BUN) GLOMERULAR FILTRATION RATE (test mL/min >=60 code = GFR) CREATININE (test code = CREAT) mg/dL 0.55-1.02 BUN/CREATININE RATIO (test code 10-20 = BUN/CREA) CALCIUM (test code = CA) 8.9 mg/dL 8.5-10.1 N [id number] 15:33:00 Test Item Value Reference Range Interpretation Comments TROPONIN-I (test code = TROPI) ng/mL 0-0.045 CBC W/O [id number] 14:03:00 Test Item Value Reference Range Interpretation Comments WHITE BLOOD CELL (test code = 8.2 K/mm3 4.5-12.5 N WBC) RED BLOOD CELL (test code = 3.90 mill/mm3 3.7-5.2 N RBC) HEMOGLOBIN (test code = HGB) 13.3 gram/dL 11.5-15.5 N HEMATOCRIT (test code = HCT) 38.6 % 36.0-46.0 N MEAN CELL VOLUME (test code = 99.0 fL 80-98 H MCV) MEAN CELL HGB (test code = MCH) 34.1 picogram 27.0-33.0 H MEAN CELL HGB CONCETRATION 34.5 gram/dL 33.0-36.0 N (test code = MCHC) RED CELL DISTRIBUTION WIDTH 11.7 % 11.6-16.2 N (test code = RDW) PLATELET COUNT (test code = 214 K/mm3 150-450 N PLT) MEAN PLATELET VOLUME (test code 9.9 fL 6.7-11.0 N = MPV) CBC W/O [id number] 14:01:00 Test Item Value Reference Range Interpretation Comments WHITE BLOOD CELL (test code = K/mm3 4.5-12.5 WBC) RED BLOOD CELL (test code = RBC) mill/mm3 3.7-5.2 HEMOGLOBIN (test code = HGB) 13.3 gram/dL 11.5-15.5 N HEMATOCRIT (test code = HCT) 38.6 % 36.0-46.0 N MEAN CELL VOLUME (test code = fL 80-98 MCV) MEAN CELL HGB (test code = MCH) picogram 27.0-33.0 MEAN CELL HGB CONCETRATION (test gram/dL 33.0-36.0 code = MCHC) RED CELL DISTRIBUTION WIDTH % 11.6-16.2 (test code = RDW) PLATELET COUNT (test code = PLT) K/mm3 150-450 MEAN PLATELET VOLUME (test code fL 6.7-11.0 = MPV) - XR FOOT 3 + V [id number] 07:52:00 FAX: Stuart Saldivar [phone] [place]: St: [facility] FAX: Amish Lai MD [phone] Name: CASSANDRA TORRES [facility] : 1955 Age/S: 62/F [address] [facility] Unit #: [id number] Loc: [place] [address] Phys: Stuart Spivey MD Acct: [id number] Dis Date: Status: REG ER PHONE #: [phone] Exam Date: 04/28/2018 0742 FAX #: [phone] Reason: small toe infeection EXAMS: CPT CODE: [id number] XR FOOT 3 + [place] [address] HISTORY: Small to infection. COMPARISON: April 18, 2018. 3 views of the left foot: No acute fracture or dislocation. 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 Narrowed DIP and the PIP joint spaces. No erosive or destructive changes are noted. Bone mineralization is normal. Mild soft tissue swelling of the 5th MTPjoint. IMPRESSION: No acute fracture or dislocation or erosive or destructive changes. Soft tissue swelling of the 5th MTP joint. at 0752 Reported and signed by: Aristides Giordano M.D. CC: Stuart Spivey MD; Amish De Anda MD Technologist: OTIS DOAN RT (R) Trnscrd Date/Time/By: 04/28/2018 (0752) : By: [email or web address] Orig Print D/T: S: 04/28/2018 (0756) PAGE 1 Signed ReportBASIC METABOLIC [id number] 07:39:00 Test Item Value Reference Range Interpretation Comments SODIUM (test code = 136 mmol/L 136-145 N NA) POTASSIUM (test code 4.1 mmol/L 3.5-5.1 N = K) CHLORIDE (test code = 104.0 mmol/L 98-107 N CL) CARBON DIOXIDE (test 24.0 mmol/L 21-32 N code = CO2) ANION GAP (test code 12.1 10-20 N = GAP) GLUCOSE (test code = 99 mg/dL 74-106 N GLU) BLOOD UREA NITROGEN 10 mg/dL 7-18 N (test code = BUN) GLOMERULAR FILTRATION > 60 mL/min >=60 Estima roberto GFR by RATE (test code = using Samy fied MDRD GFR) formula.Chronic kidney disease is defined as [facility] kidney damageor GFR <60 mL/min/1.73 m2 for >3 months. CREATININE (test code 0.90 mg/dL 0.55-1.02 N Note change in = CREAT) reference range due to change in reagent. BUN/CREATININE RATIO 10.7 10-20 N (test code = BUN/CREA) CALCIUM (test code = 8.6 mg/dL 8.5-10.1 N CA) BASIC METABOLIC [id number] 07:22:00 Test Item Value Reference Range Interpretation Comments SODIUM (test code = NA) 136 mmol/L 136-145 N POTASSIUM (test code = K) 4.1 mmol/L 3.5-5.1 N CHLORIDE (test code = CL) 104.0 mmol/L 98-107 N CARBON DIOXIDE (test code = CO2) mmol/L 21-32 ANION GAP (test code = GAP) 10-20 GLUCOSE (test code = GLU) mg/dL 74-106 BLOOD UREA NITROGEN (test code = mg/dL 7-18 BUN) GLOMERULAR FILTRATION RATE (test mL/min >=60 code = GFR) CREATININE (test code = CREAT) mg/dL 0.55-1.02 BUN/CREATININE RATIO (test code 10-20 = BUN/CREA) CALCIUM (test code = CA) mg/dL 8.5-10.1 CBC W/AUTO [id number] 07:06:00 Test Item Value Reference Range Interpretation Comments WHITE BLOOD CELL (test code = 9.0 K/mm3 4.5-12.5 N WBC) RED BLOOD CELL (test code = 3.57 mill/mm3 3.7-5.2 L RBC) HEMOGLOBIN (test code = HGB) 11.7 gram/dL 11.5-15.5 N HEMATOCRIT (test code = HCT) 34.9 % 36.0-46.0 L MEAN CELL VOLUME (test code = 97.8 fL 80-98 N MCV) MEAN CELL HGB (test code = MCH) 32.8 picogram 27.0-33.0 N MEAN CELL HGB CONCETRATION 33.5 gram/dL 33.0-36.0 N (test code = MCHC) RED CELL DISTRIBUTION WIDTH 11.9 % 11.6-16.2 N (test code = RDW) RED CELL DISTRIBUTION WIDTH SD 42.8 fL 37.0-51.0 N (test code = RDW-SD) PLATELET COUNT (test code = 302 K/mm3 150-450 N PLT) MEAN PLATELET VOLUME (test code 9.4 fL 6.7-11.0 N = MPV) NEUTROPHIL % (test code = NT%) 68.0 % 39.0-69.0 N IMMATURE GRANULOCYTE % (test 0.3 % 0.0-5.0 N code = IG%) LYMPHOCYTE % (test code = LY%) 18.3 % 25.0-55.0 L MONOCYTE % (test code = MO%) 9.9 % 0.0-10.0 N EOSINOPHIL % (test code = EO%) 2.9 % 0.0-5.0 N BASOPHIL % (test code = BA%) 0.6 % 0.0-1.0 N NUCLEATED RBC % (test code = 0.0 % 0-0 N NRBC%) NEUTROPHIL # (test code = NT#) 6.14 K/mm3 1.8-7.7 N IMMATURE GRANULOCYTE # (test 0.03 x10 3/uL 0-0.03 N code = IG#) LYMPHOCYTE # (test code = LY#) 1.65 K/mm3 1.0-5.0 N MONOCYTE # (test code = MO#) 0.89 K/mm3 0-0.8 H EOSINOPHIL # (test code = EO#) 0.26 K/mm3 0.0-0.5 N BASOPHIL # (test code = BA#) 0.05 K/mm3 0.0-0.2 N NUCLEATED RBC # (test code = 0.00 K/mm3 0.0-0.1 N NRBC#) CHEMISTRY 8 [id number] 19:59:00 Test Item Value Reference Range Interpretation Comments ISTAT-SODIUM (test code = NAP) mmol/L 135-148 ISTAT-POTASSIUM (test code = KP) mmol/L 3.5-5.5 ISTAT-CHLORIDE (test code = CLP) mmol/L 101-109 ISTAT CARBON DIOXIDE (test code = mmol/L 21-32 L ISTAT-CO2) ISTAT CALCIUM IONIZED (test code = mg/dL 1.12-1.32 ISTAT-JAQUELINE) ISTAT-ANION GAP (test code = GAPP) MEQ/L 10-20 ISTAT-GLUCOSE (test code = GLUP) mg/dL 74-106 N ISTAT-BUN (test code = BUNP) mg/dL 3-21 N BEDSIDE CREATININE (test code = mg/dL 0.7-1.3 N CREATBED) GLOMERULAR FILTRATION RATE POC (test 50 >60 LL code = GFRBED) CHEMISTRY 8 [id number] 19:59:00 Test Item Value Reference Range Interpretation Comments ISTAT-SODIUM (test code = NAP) 130 mmol/L 135-148 L ISTAT-POTASSIUM (test code = KP) 4.3 mmol/L 3.5-5.5 N ISTAT-CHLORIDE (test code = CLP) 104 mmol/L 101-109 N ISTAT CARBON DIOXIDE (test code = 17.0 mmol/L 21-32 L ISTAT-CO2) ISTAT CALCIUM IONIZED (test code 0.84 mg/dL 1.12-1.32 L = ISTAT-JAQUELINE) ISTAT-ANION GAP (test code = 14.0 MEQ/L 10-20 N GAPP) ISTAT-GLUCOSE (test code = GLUP) 90 mg/dL 74-106 N ISTAT-BUN (test code = BUNP) 14 mg/dL 3-21 N BEDSIDE CREATININE (test code = 1.1 mg/dL 0.7-1.3 N CREATBED) GLOMERULAR FILTRATION RATE POC 50 >60 LL (test code = GFRBED) CBC W/AUTO [id number] 18:08:00 Test Item Value Reference Range Interpretation Comments WHITE BLOOD CELL (test code = 10.1 K/mm3 4.5-12.5 N WBC) RED BLOOD CELL (test code = 4.01 mill/mm3 3.7-5.2 N RBC) HEMOGLOBIN (test code = HGB) 13.3 gram/dL 11.5-15.5 N HEMATOCRIT (test code = HCT) 38.0 % 36.0-46.0 N MEAN CELL VOLUME (test code = 94.8 fL 80-98 N MCV) MEAN CELL HGB (test code = MCH) 33.2 picogram 27.0-33.0 H MEAN CELL HGB CONCETRATION 35.0 gram/dL 33.0-36.0 N (test code = MCHC) RED CELL DISTRIBUTION WIDTH 11.9 % 11.6-16.2 N (test code = RDW) RED CELL DISTRIBUTION WIDTH SD 41.1 fL 37.0-51.0 N (test code = RDW-SD) PLATELET COUNT (test code = 302 K/mm3 150-450 N PLT) MEAN PLATELET VOLUME (test code 9.4 fL 6.7-11.0 N = MPV) NEUTROPHIL % (test code = NT%) 51.8 % 39.0-69.0 N IMMATURE GRANULOCYTE % (test 0.2 % 0.0-5.0 N code = IG%) LYMPHOCYTE % (test code = LY%) 38.4 % 25.0-55.0 N MONOCYTE % (test code = MO%) 6.5 % 0.0-10.0 N EOSINOPHIL % (test code = EO%) 2.7 % 0.0-5.0 N BASOPHIL % (test code = BA%) 0.4 % 0.0-1.0 N NUCLEATED RBC % (test code = 0.0 % 0-0 N NRBC%) NEUTROPHIL # (test code = NT#) 5.23 K/mm3 1.8-7.7 N IMMATURE GRANULOCYTE # (test 0.02 x10 3/uL 0-0.03 N code = IG#) LYMPHOCYTE # (test code = LY#) 3.87 K/mm3 1.0-5.0 N MONOCYTE # (test code = MO#) 0.66 K/mm3 0-0.8 N EOSINOPHIL # (test code = EO#) 0.27 K/mm3 0.0-0.5 N BASOPHIL # (test code = BA#) 0.04 K/mm3 0.0-0.2 N NUCLEATED RBC # (test code = 0.00 K/mm3 0.0-0.1 N NRBC#) MANUAL DIFF REQUIRED (test code NO = MDIFF) - XR TOE(S) 2+V [id number] 17:22:00 FAX: Alex Lay MD [phone] [place]: St: [facility] FAX: Amish Lai MD [phone] Name: CASSANDRA TORRES [facility] : 1955 Age/S: 62/F [address] Unit #: [id number] Loc: [place] [address] Phys: Alex Lay MD Acct: [id number] Dis Date: Status: REG ER PHONE #: [phone] Exam Date: 04/18/2018 1721 FAX #: [phone] Reason: L piny toe pain EXAMS: CPT CODE: [id number] XR TOE(S) 2+[place] [address] REASON FOR EXAM: L piny toe pain EXAM ORDER DATE: 04/18/2018 5:00 PM Ordering Sg: Alex Lay MD PROCEDURE: - XR TOE(S) 2+V LT FINDINGS: 2 views of the left toes were obtained. The osseous structures are unremarkable in sizeand shape. The joint spaces are maintained. No evidence of fracture. The phalanges are intact. IMPRESSION: Unremarkable left toes at 1722 Reported and signed by: Prasad Nieto M.D. CC: Alex Lay MD; Amish De Anda MD Technologist: ELLY CASTRO RT(R) Trnscrd Date/Time/By: 04/18/2018 (172) : By: [email or web address] Orig Print D/T: S: 04/18/2018 (2722) PAGE 1 Signed ReportBASI METABOLIC [id number] 14:43:00 Test Item Value Reference Range Interpretation Comments SODIUM (test code = 132 mmol/L 136-145 L NA) POTASSIUM (test code = 3.8 mmol/L 3.5-5.1 N K) CHLORIDE (test code = 99.0 mmol/L 98-107 N CL) CARBON DIOXIDE (test 24.0 mmol/L 21-32 N code = CO2) ANION GAP (test code = 12.8 10-20 N GAP) GLUCOSE (test code = 82 mg/dL 74-106 N GLU) BLOOD UREA NITROGEN 12 mg/dL 7-18 N (test code = BUN) GLOMERULAR FILTRATION 56 mL/min >=60 Estima roberto GFR by RATE (test code = GFR) using Modified MDRD formula.Chronic kidney disease is defined as eith er kidney damageor GFR <60 mL/min/1.73 m2 for >3 months. CREATININE (test code 1.00 mg/dL 0.55-1.02 N Note change in = CREAT) reference range due to change in reagent. BUN/CREATININE RATIO 12.4 10-20 N (test code = BUN/CREA) CALCIUM (test code = 8.5 mg/dL 8.5-10.1 N CA) BASIC METABOLIC [id number] 14:29:00 Test Item Value Reference Range Interpretation Comments SODIUM (test code = NA) 132 mmol/L 136-145 L POTASSIUM (test code = K) 3.8 mmol/L 3.5-5.1 N CHLORIDE (test code = CL) 99.0 mmol/L 98-107 N CARBON DIOXIDE (test code = CO2) mmol/L 21-32 ANION GAP (test code = GAP) 10-20 GLUCOSE (test code = GLU) mg/dL 74-106 BLOOD UREA NITROGEN (test code = mg/dL 7-18 BUN) GLOMERULAR FILTRATION RATE (test mL/min >=60 code = GFR) CREATININE (test code = CREAT) mg/dL 0.55-1.02 BUN/CREATININE RATIO (test code = 10-20 BUN/CREA) CALCIUM (test code = CA) 8.5 mg/dL 8.5-10.1 N CBC W/AUTO [id number] 14:02:00 Test Item Value Reference Range Interpretation Comments WHITE BLOOD CELL (test code = 7.7 K/mm3 4.5-12.5 N WBC) RED BLOOD CELL (test code = 4.23 mill/mm3 3.7-5.2 N RBC) HEMOGLOBIN (test code = HGB) 14.1 gram/dL 11.5-15.5 N HEMATOCRIT (test code = HCT) 43.5 % 36.0-46.0 N MEAN CELL VOLUME (test code = 102.8 fL 80-98 H MCV) MEAN CELL HGB (test code = MCH) 33.3 picogram 27.0-33.0 H MEAN CELL HGB CONCETRATION 32.4 gram/dL 33.0-36.0 L (test code = MCHC) RED CELL DISTRIBUTION WIDTH 11.5 % 11.6-16.2 L (test code = RDW) RED CELL DISTRIBUTION WIDTH SD 43.7 fL 37.0-51.0 N (test code = RDW-SD) PLATELET COUNT (test code = 222 K/mm3 150-450 N PLT) MEAN PLATELET VOLUME (test code 9.7 fL 6.7-11.0 N = MPV) NEUTROPHIL % (test code = NT%) 59.6 % 39.0-69.0 N IMMATURE GRANULOCYTE % (test 0.3 % 0.0-5.0 N code = IG%) LYMPHOCYTE % (test code = LY%) 23.2 % 25.0-55.0 L MONOCYTE % (test code = MO%) 11.6 % 0.0-10.0 H EOSINOPHIL % (test code = EO%) 4.6 % 0.0-5.0 N BASOPHIL % (test code = BA%) 0.7 % 0.0-1.0 N NUCLEATED RBC % (test code = 0.0 % 0-0 N NRBC%) NEUTROPHIL # (test code = NT#) 4.57 K/mm3 1.8-7.7 N IMMATURE GRANULOCYTE # (test 0.02 x10 3/uL 0-0.03 N code = IG#) LYMPHOCYTE # (test code = LY#) 1.78 K/mm3 1.0-5.0 N MONOCYTE # (test code = MO#) 0.89 K/mm3 0-0.8 H EOSINOPHIL # (test code = EO#) 0.35 K/mm3 0.0-0.5 N BASOPHIL # (test code = BA#) 0.05 K/mm3 0.0-0.2 N NUCLEATED RBC # (test code = 0.00 K/mm3 0.0-0.1 N NRBC#) MANUAL DIFF REQUIRED (test code NO = MDIFF) - XR FOOT 3 + V [id number] 11:53:00 FAX: Alex Lay MD [phone] [place]: B St: PRE Name: CASSANDRA TORRES [facility] : 1955 Age/S: 62/F [address] Unit#: [id number] Loc: [place] [address] Phys: Alex Lay MD Acct: [id number] Dis Date: Status: PRE ER PHONE #: [phone] Exam Date: 04/01/2018 1143 FAX #: [phone] Reason: last toe toes red EXAMS: CPT CODE: [id number] XR FOOT 3 + [place] [address] HISTORY: Infection. COMPARISON: None available. 3 views of the right foot: No acute fracture or dislocation. 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 Narrowed DIP and the PIP joint spaces. No erosive or destructive changes. Mineralization is normal. Soft tissues appear within normal limits. IMPRESSION: No acute fracture or dislocation. No erosive or destructive changes. at 1153 Reported and signed by: Aristides Giordano M.D. CC: Alex Lay MD Technologist: TITI LOREDO JR; STUDENT TECHNOLOGIST Trnscrd Date/Time/By: 04/01/2018 (9386) : By: [email or web address] Orig Print D/T: S: 04/01/2018 (8250) PAGE 1 Signed Report
[2021-04-20 01:31] LABS: Absolute Lymphocytes (CBC) 2.1 K/uL (0.7-4.9); Hematocrit 36.2 % (36.0-45.0); Lymphocytes % 18.7 % (15.3-44.8); RBC Red Blood Cell Count 3.76 M/uL (3.86-4.86)
[2021-04-20 01:32] LABS: Protime INR 0.91
[2021-04-20 01:49] LABS: Bilirubin Direct 0.1 mg/dL (0-0.2); Bilirubin Total 0.6 mg/dL (0.2-1.0); Magnesium 2.4 mg/dL (1.8-2.4); Potassium 3.9 mmol/L (3.5-5.1); Protein, Total 7.2 g/dL (6.4-8.2); Troponin High Sensitivity 9.1 pg/mL (<58.9)
[2021-04-20] MEDS ORDERED: NA CHLORIDE 0.9% 1,000 ML ONE (02:44)
--- NOTE | 2021-04-20 02:45 | ER ---
Nurse's Notes [facility] Name: Rachel Butt Age: 65 yrs Sex: Female : 1955 Arrival Date: 04/20/2021 Time: 00:24 Bed 18 Private MD: Diagnosis: Volume depletion, unspecified;Fall on same level from slipping, tripping and stumbling without subsequent striking against object Presentation: 04/20 00:38 Chief complaint: Patient states: "I got up and I think my blood pressure dropped", pt mk states she got up quickly from sitting and became very dizzy, states she then tripped (after taking her abilify and benzotropine which usually make her dizzy), only c/o L shoulder pain, denies blood thinners, Hx COPD, asthma, HTN, hemorrhagic stroke w/ stent. 00:53 Coronavirus screen: Vaccine status:. Ebola Screen: Patient negative for fever greater mk than or equal to 101.5 degrees Fahrenheit, and additional compatible Ebola Virus Disease symptoms. Initial Sepsis Screen: Does the patient meet any 2 criteria? No. Patient's initial sepsis screen is negative. Does the patient have a suspected source of infection? No. Patient's initial sepsis screen is negative. Risk Assessment: Do you want to hurt yourself or someone else? Patient reports no desire to harm self or others. Onset of symptoms was April 20, 2021. 00:53 Method Of Arrival: EMS 00:53 Acuity: KRISTEN 3 mk Triage Assessment: 00:56 General: Appears in no apparent distress. Behavior is cooperative. Pain: Complains of mk pain in L shoulder Pain currently is 7 out of 10 on a pain scale. Quality of pain is described as aching, Pain began suddenly, Is lasting 30 minutes. Historical: - Allergies: 00:57 Codeine; mk - Home Meds: 00:57 atorvastatin oral [Active]; Abilify oral [Active]; benzonatate oral [Active]; albuterol mk sulfate 2.5 mg /3 mL (0.083 %) Inhl nebu 3 mL 3 times per day [Active]; - PMHx: 00:57 Chronic obstructive lung disease; Asthma; Hypertensive disorder; Hypercholesterolemia; mk - PSHx: 00:57 Stented artery; mk - Immunization history:: Adult Immunizations up to date. - Social history:: Smoking status: Patient reports the use of cigarette tobacco products, smokes one pack cigarettes per day. Screenin:56 Abuse screen: Denies threats or abuse. Nutritional screening: No deficits noted. mk Tuberculosis screening: No symptoms or risk factors identified. Fall Risk Fall in past 12 months (25 points). No secondary diagnosis (0 pts). IV access (20 points). Ambulatory Aid- None/Bed Rest/Nurse Assist (0 pts). Gait- Weak (10 pts.). Mental Status- Oriented to own ability (0 pts). Total [place] Fall Scale indicates High Risk Score (45 or more points). Fall prevention measures have been instituted. Side Rails Up X 2 Placed Close to Nursing Station 1:1 Attendant Assigned. Assessment: 01:28 General: Appears comfortable, well groomed, well developed, well nourished, Behavior is tk1 calm, cooperative, appropriate for age. Pain:. Pain: Complains of pain in left scapular area Pain does not radiate. Pain currently is 4 out of 10 on a pain scale. Quality of pain is described as aching, Pain began suddenly, Is intermittent. Neuro: Neuro: Level of Consciousness is awake, alert, obeys commands, Oriented to person, place, time, situation, Appropriate for age Spanish Speaking Babysitter are equal bilaterally Moves all extremities. Full function Gait is steady, Speech is normal. Cardiovascular: Heart tones S1 S2 present Capillary refill < 3 seconds is brisk in bilateral fingers Rhythm is sinus rhythm with unifocal PVCs. Respiratory: Airway is patent Trachea midline Respiratory effort is even, unlabored, Respiratory pattern is regular, symmetrical, Breath sounds are coarse bilaterally. in right upper lobe and left upper lobe. GI: No deficits noted. No signs and/or symptoms were reported involving the gastrointestinal system. : No deficits noted. No signs and/or symptoms were reported regarding the genitourinary system. EENT: No deficits noted. No signs and/or symptoms were reported regarding the EENT system. EENT: No deficits noted. No signs and/or symptoms were reported regarding the EENT system. Derm: No deficits noted. No signs and/or symptoms reported regarding the dermatologic system. Musculoskeletal: Reports pain in left scapular area since fall. 02:30 Reassessment: No changes from previously documented assessment. Patient and/or family tk1 updated on plan of care and expected duration. Pain level reassessed. Patient is alert, oriented x 3, equal unlabored respirations, skin warm/dry/pink. Pain: Complains of pain in left scapular area Pain does not radiate. Pain currently is 4 out of 10 on a pain scale. Quality of pain is described as aching. 03:53 Reassessment: D/C per MD order. Discharge instructions given to patient. Verbalized tk1 understanding. Patient states, she doesn't have a ride home. Offered to call a cab. Patient responded that she doesn't have the funds for that. Fe nurse discharge planner notified of patient's need for cab assistance. Vital Signs: 00:38 BP 107 / 58; Pulse 58; Resp 18; Temp 97.1(O); Pulse Ox 100% on R/A; mk 01:34 BP 107 / 78 LA Sitting (auto/reg); Pulse 61 MON; Resp 20 S; Temp 97.8; Pulse Ox 99% ; tk1 Pain 4/10; 02:30 BP 110 / 44 LA Supine (auto/reg); Pulse 60 MON; Resp 16; Temp 98.1(O); Pulse Ox 96% on tk1 R/A; Pain 4/10; 02:30 BP 100 / 41 LA Supine (auto/reg); Pulse 60 MON; Resp 16 S; Pulse Ox 99% on R/A; tk1 03:57 BP 119 / 46 Supine (auto/reg); Pulse 78 MON; Resp 16 S; Temp 98(O); Pulse Ox 97% on tk1 R/A; Pain 0/10; Vitals: 01:34 Cardiac Rhythm Assessment Regular Sinus rhythm W/unifocal PVC's. tk1 02:30 Cardiac Rhythm Assessment Regular Sinus rhythm. tk1 [place] Coma Score: 01:34 Eye Response: spontaneous(4). Verbal Response: oriented(5). Motor Response: obeys tk1 commands(6). Total: 15. ED Course: 00:24 Patient arrived in ED. mw2 00:43 Roselyn Morales FNP-C [facility]. kb 00:43 Krishna Nagy MD is Attending Physician. kb 00:44 Millie Boyce is Primary Nurse. tk1 00:55 Triage completed. mk 00:56 Arm band placed on. EKG completed in triage. Results shown to MD. mk 00:57 No provider procedures requiring assistance completed. mk 01:12 Shoulder Left (2 View) XRAY In Process Unspecified. EDMS 01:34 Patient has correct armband on for positive identification. Bed in low position. Call tk1 light in reach. Side rails up X2. pvc monitor on. Pulse ox on. NIBP on. Warm blanket given. 01:34 Inserted saline lock: 20 gauge in right antecubital area, using aseptic technique. tk1 Blood collected. Missed attempt(s): 20 gauge Bleeding controlled, band aid applied, catheter tip intact. Patient maintains SpO2 saturation greater than 95% on room air. 01:37 Basic Metabolic Panel Sent. tk1 01:37 LFT's Sent. tk1 01:37 Magnesium Sent. tk1 01:37 NT PRO-BNP Sent. tk1 01:37 Troponin HS Sent. tk1 01:56 CT Head Brain wo Cont In Process Unspecified. EDMS 02:11 Orthostatics: Lying B/P - 111/73, P - 62. Sitting B/P - 110/62, P - 61. Standing B/P - tk1 105/56, P - 80. 03:53 IV discontinued, intact, bleeding controlled, No redness/swelling at site. Pressure tk1 dressing applied. Administered Medications: 02:40 Drug: NS 0.9% 1000 ml Route: IV; Rate: 1000 ml; Infused Over: 1 hrs; Site: right tk1 antecubital; Delivery: Primary tubing; 03:56 Follow up: IV Status: Completed infusion; IV Intake: 1000ml tk1 03:56 Follow up: Response: No adverse reaction tk1 Intake: 03:56 IV: 1000ml; Total: 1000ml. tk1 Outcome: 02:44 Discharge ordered by . will 03:53 Discharged to home via wheelchair. tk1 03:53 Condition: stable 03:53 Discharge instructions given to patient, Instructed on discharge instructions, follow up and referral plans. benefits of quitting smoking, Demonstrated understanding of instructions, follow-up care. 04:17 Patient left the ED. tk1 Signatures: Dispatcher [employer] EDMN Roselyn Morales, STERLING العراقي-Tello Villarreal 2 Kotarski, CarolHUI malagon RN Millie tk1 Corrections: (The following items were deleted from the chart) 00:56 00:53 Chief complaint: Patient states: "I got up and I think my blood pressure mk dropped", pt states she got up quickly from sitting and became very dizzy, states she then tripped, only c/o L shoulder pain, denies blood thinners, Hx COPD, asthma, HTN, hemorrhagic stroke w/ stent mk 00:56 00:53 BP 107 / 58; Pulse 58bpm; Resp 18bpm; Pulse Ox 100% RA; Temp 97.1F Oral; mk mk 00:59 00:38 Chief complaint: Patient states: "I got up and I think my blood pressure mk dropped", pt states she got up quickly from sitting and became very dizzy, states she then tripped, only c/o L shoulder pain, denies blood thinners, Hx COPD, asthma, HTN, hemorrhagic stroke w/ stent mk
--- NOTE | 2021-04-20 02:45 | EDPHYS ---
Physician Documentation [facility] Name: Rachel Butt Age: 65 yrs Sex: Female : 1955 Arrival Date: 04/20/2021 Time: 00:24 Bed 18 Private MD: ED Physician Krishna Nagy HPI: 04/20 01:33 This 65 yrs old Female presents to ER via EMS with complaints of lightheaded upon kb standing. 01:33 The patient presents with lightheadedness. Onset: The symptoms/episode began/occurred kb just prior to arrival. Context: occurred at home, occurred while the patient was going from sitting to standing. just prior to the episode the patient experienced no apparent symptoms. Modifying factors: The symptoms are alleviated by nothing, the symptoms are aggravated by nothing. Associated signs and symptoms: The patient has no apparent associated signs or symptoms. Severity of symptoms: At their worst the symptoms were mild moderate in the emergency department the symptoms are unchanged. Patient's baseline: Neuro: alert and fully oriented, Motor: no deficits, Ambulation: walks without assistance, Speech: normal. The patient has experienced similar episodes in the past, a few times. The patient has not recently seen a physician. Pt states she stood up quickly and became lightheaded, then tripped and fell over the dogs stuff on the floor. States she fell to the floor and has left shoulder pain. Denies LOC, hitting head, headache. States she previously fractured the left shoulder so is worried it is broken again. Historical: - Allergies: 00:57 Codeine; mk - Home Meds: 00:57 atorvastatin oral [Active]; Abilify oral [Active]; benzonatate oral [Active]; albuterol mk sulfate 2.5 mg /3 mL (0.083 %) Inhl nebu 3 mL 3 times per day [Active]; - PMHx: 00:57 Chronic obstructive lung disease; Asthma; Hypertensive disorder; Hypercholesterolemia; mk - PSHx: 00:57 Stented artery; mk - Immunization history:: Adult Immunizations up to date. - Social history:: Smoking status: Patient reports the use of cigarette tobacco products, smokes one pack cigarettes per day. ROS: 01:35 Constitutional: Negative for fever, chills, and weight loss. kb 01:35 MS/extremity: Positive for pain, of the anterior aspect of left shoulder and posterior aspect of left shoulder. 01:35 Neuro: Positive for lightheaded. 01:35 All other systems are negative. Exam: 01:36 Constitutional: This is a well developed, well nourished patient who is awake, alert, kb and in no acute distress. Head/Face: Normocephalic, atraumatic. ENT: Moist Mucous membranes Cardiovascular: Regular rate and rhythm with a normal S1 and S2. No gallops, murmurs, or rubs. No pulse deficits. Respiratory: Respirations even and unlabored. No increased work of breathing. Talking in full sentences Skin: Warm, dry with normal turgor. Normal color. MS/ Extremity: Pulses equal, no cyanosis. Neurovascular intact. Full, normal range of motion. Neuro: Awake and alert, GCS 15, oriented to person, place, time, and situation. Moves all extremities. Normal gait. Psych: Awake, alert, with orientation to person, place and time. Behavior, mood, and affect are within normal limits. Vital Signs: 00:38 BP 107 / 58; Pulse 58; Resp 18; Temp 97.1(O); Pulse Ox 100% on R/A; mk 01:34 BP 107 / 78 LA Sitting (auto/reg); Pulse 61 MON; Resp 20 S; Temp 97.8; Pulse Ox 99% ; tk1 Pain 4/10; 02:30 BP 110 / 44 LA Supine (auto/reg); Pulse 60 MON; Resp 16; Temp 98.1(O); Pulse Ox 96% on tk1 R/A; Pain 4/10; 02:30 BP 100 / 41 LA Supine (auto/reg); Pulse 60 MON; Resp 16 S; Pulse Ox 99% on R/A; tk1 03:57 BP 119 / 46 Supine (auto/reg); Pulse 78 MON; Resp 16 S; Temp 98(O); Pulse Ox 97% on tk1 R/A; Pain 0/10; [place] Coma Score: 01:34 Eye Response: spontaneous(4). Verbal Response: oriented(5). Motor Response: obeys tk1 commands(6). Total: 15. MDM: 00:43 Patient medically screened. kb 01:36 Data reviewed: vital signs, nurses notes. Data interpreted: Pulse oximetry: on room air kb is 99 %. Interpretation: normal. 02:39 Counseling: I had a detailed discussion with the patient and/or guardian regarding: the kb historical points, exam findings, and any diagnostic results supporting the discharge/admit diagnosis, lab results, radiology results, the need for outpatient follow up, a family practitioner, to return to the emergency department if symptoms worsen or persist or if there are any questions or concerns that arise at home. 02:45 ED course: No tenderness upon exam of left shoulder. Pt reports old fracture which is kb seen on plain films and discussed with ERP. . 04/20 00:48 Order name: Basic Metabolic Panel; Complete Time: 01:50 kb 04/20 00:48 Order name: CBC with Diff; Complete Time: 01:36 kb 04/20 00:48 Order name: LFT's; Complete Time: 01:50 kb 04/20 00:48 Order name: Magnesium; Complete Time: 01:50 kb 04/20 00:48 Order name: NT PRO-BNP; Complete Time: 01:50 kb 04/20 00:48 Order name: PT-INR; Complete Time: 01:32 kb 04/20 00:48 Order name: Troponin HS; Complete Time: 01:50 kb 04/20 00:48 Order name: EKG; Complete Time: 00:48 kb 04/20 00:48 Order name: Cardiac monitoring; Complete Time: 01:37 kb 04/20 00:48 Order name: EKG - Nurse/Tech; Complete Time: 01:04 kb 04/20 00:48 Order name: IV Saline Lock; Complete Time: 01:37 kb 04/20 00:48 Order name: CT Head Brain wo Cont kb 04/20 00:48 Order name: Shoulder Left (2 View) XRAY kb 04/20 00:48 Order name: Labs collected and sent; Complete Time: 01:37 kb 04/20 00:48 Order name: O2 Per Protocol; Complete Time: 01:37 kb 04/20 00:48 Order name: O2 Sat Monitoring; Complete Time: 01:37 kb 04/20 00:48 Order name: Orthostatics; Complete Time: 02:15 kb Administered Medications: 02:40 Drug: NS 0.9% 1000 ml Route: IV; Rate: 1000 ml; Infused Over: 1 hrs; Site: right tk1 antecubital; Delivery: Primary tubing; 03:56 Follow up: IV Status: Completed infusion; IV Intake: 1000ml tk1 03:56 Follow up: Response: No adverse reaction tk1 Disposition: 07:07 Co-signature as Attending Physician, Krishna Nagy MD I agree with the assessment and [facility] plan of care. Disposition Summary: 04/20/21 02:44 Discharge Ordered Location: Home kb Condition: Stable kb Diagnosis - Volume depletion, unspecified kb - Fall on same level from slipping, tripping and stumbling without subsequent kb striking against object Followup: kb - With: Emergency Department - When: As needed - Reason: Worsening of condition Followup: kb - With: Private Physician - When: 2 - 3 days - Reason: Recheck today's complaints, Continuance of care, Re-evaluation by your physician Discharge Instructions: - Discharge Summary Sheet kb - Dehydration, Adult, [id number] kb Forms: - Medication Reconciliation Form kb - Thank You Letter kb - Antibiotic Education kb - Prescription Opioid Use kb Signatures: Dispatcher [employer] EDMS Roselyn Morales, FOOT PRESS OPERATOR-C FOOT PRESS OPERATOR-CkKrishna Hdz MD MD cha Kotarski, Madeline, RN RN Millie Avalos tk1 Corrections: (The following items were deleted from the chart) 01:36 01:33 Pt states she stood up quickly and became lightheaded, then tripped and fell over kb the dogs stuff on the floor. States she fell to the floor and has left shoulder pain. Denies LOC, headache. States she previously fractured the left shoulder so is worried it is broken again. kb
[2021-04-20 04:43] VITALS: BP 119/46; TEMP 98; O2SAT 97
--- NOTE | 2021-04-20 08:36 | RAD REPORT ---
EXAM DESCRIPTION: RAD - Shoulder Left 2 View - 04/20/2021 1:12 am CLINICAL HISTORY: Left shoulder pain FINDINGS: Old left humeral fracture. No acute fracture or dislocation seen
--- NOTE | 2021-04-20 11:02 | RAD REPORT ---
EXAM DESCRIPTION: CT - Head Brain Wo Cont - 04/20/2021 6:39 am CLINICAL HISTORY: 65 years, Female, lightheaded COMPARISON: None. FINDINGS: Multiple transaxial tomograms of the brain were obtained from the base of the skull to the vertex without contrast. 2-D multiplanar reformats and the coronal and sagittal plane were performed and reviewed. This exam was performed according to our departmental dose-optimization protocol, which includes auto mated exposure control, adjustment of the mA and/or kV according to patient size and/or use of iterat mitch reconstruction technique. There is a right frontal ventricular peritoneal shunt through the anterior horn right lateral ventric le tip crossing midline at the level of the anterior to the hypothalamus. The brain parenchyma demons trate mild prominence of the sulci and gyri are corresponding to mild cerebral and cerebellar atrophy noted the. There is no midline shift and/or mass effect. There is no evidence for acute intracranial hemorrhage. Lateral ventricles and cisterns displace normal appearance. No intra or extra axial fluid collections were seen. The calvarium is intact with no evidence for fracture. The visualized po rtions of the paranasal sinuses and orbits demonstrate to be clear. IMPRESSION: No acute intracranial hemorrhage. 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 Mild brain atrophy. Electronically signed by: Timur Bustamante MD 04/20/2021 2:19 AM HEAD LINEMAN Due to temporary technical issues with the PACS/Fluency reporting system, reports are being signed by the in house radiologist without review as a courtesy to ensure prompt reporting. The interpreting r adiologist is fully responsible for the content of the report.
--- NOTE | 2021-04-20 11:14 | EKG ---
Test Date: 2021-04-20 Test Time: 00:48:36 Cable Former: MEASUREMENT RESULTS: Intervals: Rate: 54 MI: 178 QRSD: 86 QT: 476 QTc: 451 Cullen: P: 82 MI: 178 QRS: 90 T: 69 INTERPRETIVE STATEMENTS: Sinus bradycardia Rightward axis Nonspecific ST abnormality Abnormal ECG No previous ECG available for comparison Electronically Signed On 04-20-21 11:13:36 GRADUATE CIVIL ENGINEER by Ronal Mo
== END 2021-04-20 04:17 | disposition home or self-care (01) ==
LOC: ER 00:14
DX: E86.9 Volume depletion, unspecified (principal); W01.0XXA Fall on same level from slipping, tripping and stumbling without subsequent striking against object, initial encounter; I10 Essential (primary) hypertension; J44.9 Chronic obstructive pulmonary disease, unspecified; F17.210 Nicotine dependence, cigarettes, uncomplicated; Z88.5 Allergy status to narcotic agent
CPT/HCPCS: 93005; 85025; 80048; 36415; 83735; 85610; 80076; 84484; 83880; 70450; 73030; 96360; 99285; J7030

== ENCOUNTER 2021-06-13 11:37 | Day surgery (SDC) | payer OTHER ==
[2021-06-09 12:01] LABS: Potassium 3.7 mmol/L (3.5-5.1)
[2021-06-13] MEDS ORDERED: Ringers Lactate 1,000 ML IV ONE (11:52)
[2021-06-13] MEDS ORDERED: BSS OPTHALMIC SOL 15 ML OPTH ONE (11:54)
[2021-06-13] MEDS ORDERED: EPINEPHRINE/PF 1 MG/ML AMP ONE ×2 (11:55→13:02)
[2021-06-13] MEDS ORDERED: POVIDONE-IODINE 5% EYE DROPS ONE (11:56)
[2021-06-13] MEDS ORDERED: MOXIFLOXACIN HCL 10 DROPS/ML **OR USE OPTH ONE (11:56)
[2021-06-13] MEDS ORDERED: BALANCED SALT IRRIG PLAIN 500 ML IRR ONE (11:56)
[2021-06-13] MEDS ORDERED: LIDOCAINE 1% MPF 2 ML AMPULE ONE (11:56)
[2021-06-13] MEDS ORDERED: DUOVISC 1 KIT OPTH ONE (11:57)
[2021-06-13] MEDS ORDERED: LIDOCAINE HCL/PF 3.5% OPTH GEL ONE (12:19)
[2021-06-13] MEDS ORDERED: MOXIFLOXACIN HCL 0.5% 3ML OPTH OPTH ONE (12:20)
[2021-06-13] MEDS ORDERED: ALBUTEROL 2.5 MG/3 ML NEB SOL ONE (12:21)
[2021-06-13] MEDS ORDERED: LIDOCAINE 1% MPF 5 ML VIAL ONE (12:26)
[2021-06-13] MEDS ORDERED: FENTANYL CITR 100 MCG/2 ML ONE (12:26)
[2021-06-13] MEDS ORDERED: propofoL 200 MG/20 ML VIAL IV ONE (12:26)
[2021-06-13] MEDS ORDERED: MIDAZOLAM HCL 2 MG/2 ML INJ ONE (12:26)
[2021-06-13] MEDS: PHENYLEPHRINE 2.5% OPTH 2 ML ONE ×3 (12:27→12:37)
[2021-06-13] MEDS: CYCLOPENTOLATE 1% OPTH 2 ML ONE ×3 (12:27→12:37)
[2021-06-13] MEDS ORDERED: EPHEDRINE SULF 50 MG/ML VIAL ONE (13:18)
[2021-06-13] MEDS ORDERED: NS 0.9% VIAL 10 ML ONE (13:19)
[2021-06-13] MEDS ORDERED: dexAMETHasone 10 MG/ML VIAL ONE (13:23)
[2021-06-13] MEDS ORDERED: KETOROLAC 30 MG/ML INJ ONE (13:23)
[2021-06-13] MEDS ORDERED: ONDANSETRON 4 MG/2 ML VIAL ONE (13:37)
[2021-06-13 14:53] VITALS: BP 129/42; TEMP 97.7; O2SAT 98
--- NOTE | 2021-06-14 01:09 | OP ---
Date of Procedure: 06/13/2021 Surgeon: Abby Chew MD Anesthesiologist: Tre Betancur CRNA and Manjit Lofton MD, anesthesia for surgery. Preoperative Diagnosis: Combined form of cataract, right eye. Operation Performed: Phacoemulsification with intraocular lens implant, right eye. Complications: None. Description Of Procedure: In the operating room the patient was prepped and draped in the usual sterile fashion for ophthalmic surgery. A lid speculum was placed in the right eye. Two paracentesis sites were made superiorly and inferiorly in the limbal cornea. Preservative free lidocaine then Viscoat were placed in the anterior chamber and a keratome was used to enter the anterior chamber. A 360 degree capsulotomy was performed with utrata forceps. The lens was hydrodissected with BSS and rotated freely. The lens was removed with a chop technique. 5.42 phaco CDE was used to remove the lens. Residual cortex was removed with the irrigation and aspiration. Provisc was placed in the capsular bag. A DCB00 +18.0 lens was placed in the capsular bag without complications. Irrigation and aspiration was used to remove residual viscoelastic. The paracentesis sites were hydrated with BSS. The wound and paracentesis sites were inspected and found to be watertight. Vigamox 0.07 cc was placed intracamerally at the end of the procedure. The eye was patched with a clear shield. The patient was returned to day surgery in good condition. Discharge Instructions: Ms. Butt is discharged to home in good condition. She is to follow up with Dr. Chew in the morning. MELISSA/DEYVI Voice ID: [id number] Report ID: [id number] BRYANNA
== END 2021-06-13 14:55 | disposition home or self-care (01) ==
LOC: OR 11:37
PROVIDERS: ATTEND Ophthalmology Retina Specialist
PROC: 085J3ZZ Destruction of Right Lens, Percutaneous Approach (ICD-10-PCS; principal; 2021-06-13 13:00)
DX: H25.11 Age-related nuclear cataract, right eye (principal); H53.8 Other visual disturbances; J44.9 Chronic obstructive pulmonary disease, unspecified; J45.909 Unspecified asthma, uncomplicated; E03.9 Hypothyroidism, unspecified; E78.00 Pure hypercholesterolemia, unspecified; Z20.822 Contact with and (suspected) exposure to COVID-19
CPT/HCPCS: 93005; 80048; 36415; 66850; U0003; J2704; J0171 ×2; J2250; J3010; J1100; J7120; J2405

== ENCOUNTER 2021-07-25 11:21 | Day surgery (SDC) | payer OTHER ==
[2021-07-25] MEDS ORDERED: CYCLOPENTOLATE 1% OPTH 2 ML ONE (12:04)
[2021-07-25] MEDS ORDERED: Ringers Lactate 1,000 ML IV ONE (12:05)
[2021-07-25] MEDS ORDERED: PHENYLEPHRINE 2.5% OPTH 2 ML ONE (12:05)
[2021-07-25] MEDS ORDERED: BSS OPTHALMIC SOL 15 ML OPTH ONE (12:29)
[2021-07-25] MEDS ORDERED: BALANCED SALT IRRIG PLAIN 500 ML IRR ONE (12:29)
[2021-07-25] MEDS ORDERED: POVIDONE-IODINE 5% EYE DROPS ONE (12:30)
[2021-07-25] MEDS ORDERED: MIDAZOLAM HCL 2 MG/2 ML INJ ONE (12:32)
[2021-07-25] MEDS ORDERED: FENTANYL CITR 100 MCG/2 ML ONE (12:33)
[2021-07-25] MEDS ORDERED: propofoL 200 MG/20 ML VIAL IV ONE (12:33)
[2021-07-25] MEDS ORDERED: LIDOCAINE 1% MPF 5 ML VIAL ONE (12:34)
[2021-07-25] MEDS ORDERED: ONDANSETRON 4 MG/2 ML VIAL ONE (12:34)
[2021-07-25] MEDS: DUOVISC 1 KIT OPTH ONE ×4 (13:22→14:01)
[2021-07-25] MEDS: EPINEPHRINE/PF 1 MG/ML AMP ONE ×2 (13:23→13:55)
[2021-07-25] MEDS: MOXIFLOXACIN HCL 10 DROPS/ML **OR USE OPTH ONE ×2 (13:25→14:02)
[2021-07-25] MEDS ORDERED: LIDOCAINE 1% MPF 2 ML AMPULE ONE (13:49)
[2021-07-25] MEDS ORDERED: EPHEDRINE SULF 50 MG/ML VIAL ONE (14:01)
[2021-07-25 15:10] VITALS: BP 120/55; TEMP 96; O2SAT 96
--- NOTE | 2021-07-26 02:16 | OP ---
Surgeon: Abby Chew MD Anesthesiologist: Neida Tionco CRNA, and Francis Laguerre MD. Preoperative Diagnosis: Nuclear sclerotic cataract left eye. Operation Performed: Phacoemulsification with intraocular lens implant, left eye. Anesthesia: General anesthesia. Complications: None Description Of Procedure: In the operating room the patient intubated then prepped and draped in the usual sterile fashion for ophthalmic surgery. A lid speculum was placed in the left eye. Two paracentesis sites were made superiorly and inferiorly in the limbal cornea. Preservative free lidocaine 1% then Viscoat were placed in the anterior chamber. A keratome was used to enter the anterior chamber. A 360 degree capsulotomy was performed with utrata forceps The lens was hydrodissected with BSS and rotated freely. The lens was removed with a chop technique. 6.68 phaco CDE was used to remove the lens. Residual cortex was removed with the irrigation and aspiration. Provisc was placed in the capsular bag. A DCB00 +17.0 lens was placed in the capsular bag without complications. Irrigation and aspiration was used to remove residual viscoelastic. The paracentesis sites were hydrated with BSS. The wound and paracentesis sites were inspected and found to be watertight. Vigamox 0.07 cc was placed intracamerally at the end of the procedure. The eye was patched with a clear shield. The patient was returned to day surgery in good condition. Comments: Discharge Instructions: The patient is discharged to home in good condition and is to follow up with Dr. Chew in the morning. MELISSA/DEYVI Voice ID: [id number] Report ID: [id number] BRYANNA
== END 2021-07-25 15:30 | disposition home or self-care (01) ==
LOC: OR 11:21
PROVIDERS: ATTEND Ophthalmology Retina Specialist
PROC: 08RK3JZ Replacement of Left Lens with Synthetic Substitute, Percutaneous Approach (ICD-10-PCS; principal; 2021-07-25 13:00)
DX: H25.12 Age-related nuclear cataract, left eye (principal); Z20.822 Contact with and (suspected) exposure to COVID-19
CPT/HCPCS: 66984; U0003; J2704; J0171; J2250; J3010; J7120; J2405

== ENCOUNTER 2022-02-10 10:02 | Emergency (ER) | payer OTHER ==
--- OUTSIDE RECORDS SUMMARY | 2022-02-10 10:09 | XMS REPORT | Continuity of Care Document ---
:1955 Author Organization [facility] t Address [address] [place] [address] Care Team Providers Name Role Phone AMISH DE ANDA MD Primary Care Physician Luiza Mahoney Attending Clinician Unavailable aYsmani Gonzales Attending Clinician Unavailable Kevin Doherty Attending Clinician Unavailable Winston Rutledge Attending Clinician Unavailable Nilda Wells Admitting Clinician Unavailable Amish De Anda Admitting Clinician Unavailable Yasmani Gonzales Admitting Clinician Unavailable Payers Payer Name Policy Type Policy Number Effective Date Expiration Date Ana syed [employer] D [id number] 2016 Medicaid 00:00:00 [employer] Avelino [id number] 2016 2016 Medicaid 00:00:00 00:00:00 Problems This patient has no known problems. Allergies, Adverse Reactions, Alerts Allergy Allergy Status Severity Reaction(s) Onset Inactive Treating Comm ents Source Name Type Date Date Clinician carlos STEVEN Active CO UNSURE [facility] 09-23 [place] 00:[facility]: e [facility] beeswax DA Active CO HAS EPI PEN 1-0 [facility] 09-[facility] [place] [facility] e [facility] ranitidi DA Active CO UNSURE 2020-0 [facility] ne 09-23 [place] 00:[facility]: e [facility] bee DA Active CO RASH 2020-0 [facility] pollen 09-23 [place] 00:[facility]: e [facility] wheat FA Active MO UPSET 2020-0 [facility] STOMACH 09-23 [place] 00:[facility]: e [facility] codeine DA Active CO 2020-0 [facility] 09-23 [place] 00:[facility]: e 00 [facility] beeswax DA Active CO 2020-0 [facility] 09-23 [place] 00:[facility]: e [facility] metronid DA Active CO UNKNOWN 2020-0 [facility] azole 09-23 [place] 00:00: e [facility] ranitidi DA Active CO 2020-0 [facility] ne 09-23 [place] 00:[facility]: e [facility] bee DA Active CO 2020-0 [facility] pollen 09-23 [place] 00:[facility]: e [facility] wheat FA Active MO 2020-0 [facility] 09-23 [place] 00:[facility]: e [facility] codeine DA Active CO UNSURE 1-0 [facility] 7 [place] 00:00: e [facility] beeswax DA Active CO HAS EPI PEN 1-0 [facility] 7 [place] 00:00: e [facility] ranitidi DA Active CO UNSURE 2020-0 [facility] ne 09-06 [place] 00:00: e [facility] bee DA Active CO RASH 2020-0 [facility] pollen 7 [place] 00:[facility]: e [facility] wheat FA Active MO UPSET 2020-0 [facility] STOMACH 7 [place] 00:[facility]: e [facility] codeine DA Active CO 1-0 [facility] 7 [place] 00:00: e [facility] beeswax DA Active CO 1-0 [facility] 7- [place] 00:[facility]: e [facility] metronid DA Active CO UNKNOWN 2020-0 [facility] azole 7 [place] 00:00: e [facility] ranitidi DA Active CO 1-0 [facility] ne 7 [place] 00:00: e [facility] bee DA Active CO 2020-0 [facility] pollen 7-05 [place] 00:00: e [facility] wheat FA Active MO 2020-0 [facility] 7-05 [place] 00:00: e [facility] codeine DA Active CO UNSURE 2020-0 [facility] 6-08 [place] 00:00: e [facility] beeswax DA Active CO HAS EPI PEN 2020-0 [facility] 6-08 [place] 00:00: e [facility] ranitidi DA Active CO UNSURE 2020-0 [facility] ne 6-08 [place] 00:00: e [facility] bee DA Active CO RASH 2020-0 [facility] pollen 6-08 [place] 00:00: e [facility] wheat FA Active MO UPSET 2020-0 [facility] STOMACH 6-08 [place] 00:00: e [facility] codeine DA Active CO 2020-0 [facility] 6-08 [place] 00:00: e [facility] beeswax DA Active CO 2020-0 [facility] 6-08 [place] 00:00: e [facility] metronid DA Active CO UNKNOWN 2020-0 [facility] azole 6- [place] 00:00: e [facility] ranitidi DA Active CO 2020-0 [facility] ne 6-08 [place] 00:00: e [facility] bee DA Active CO 2020-0 [facility] pollen 6-08 [place] 00:00: e [facility] wheat FA Active MO 2020-0 [facility] 6-08 [place] 00:00: e [facility] codeine DA Active CO 2020-1 [facility] 2-03 [place] 00:00: e [facility] beeswax DA Active CO 2020-1 [facility] 2- [place] 00:00: e [facility] metronid DA Active CO UNKNOWN 2020-1 [facility] azole 2- [place] 00:00: e [facility] ranitidi DA Active CO 2020-1 [facility] ne 2- [place] 00:[facility]: e [facility] bee DA Active CO 2020-1 [facility] pollen 2- [place] 00:00: e [facility] wheat FA Active MO 2020-1 [facility] 2-03 [place] 00:00: e 00 [facility] codeine DA Active CO UNSURE 2020-1 [facility] 2-03 [place] 00:00: e 00 [facility] beeswax DA Active CO HAS EPI PEN 2020-1 [facility] 2-03 [place] 00:00: e 00 [facility] ranitidi DA Active CO UNSURE 2020-1 [facility] ne 2-03 [place] 00:00: e [facility] bee DA Active CO RASH 2020-1 [facility] pollen 2-03 [place] 00:00: e [facility] wheat FA Active MO UPSET 2020-1 [facility] STOMACH 2-03 [place] 00:00: e [facility] codeine DA Active CO 2020-1 [facility] 0-20 [place] 00:00: e [facility] beeswax DA Active CO 2020-1 [facility] 0-20 [place] 00:00: e [facility] metronid DA Active CO UNKNOWN 2020-1 [facility] azole 0-20 [place] 00:00: e 00 [facility] ranitidi DA Active CO 2020-1 [facility] ne 0-20 [place] 00:00: e [facility] bee DA Active CO 2020-1 [facility] pollen 0-20 [place] 00:00: e [facility] wheat FA Active MO 2020-1 [facility] 0-20 [place] 00:00: e [facility] codeine DA Active CO UNSURE 2020-1 [facility] 0-20 [place] 00:00: e [facility] beeswax DA Active CO HAS EPI PEN 2020-1 [facility] 0-20 [place] 00:00: e [facility] ranitidi DA Active CO UNSURE 2020-1 [facility] ne 0-20 [place] 00:00: e [facility] bee DA Active CO RASH 2020-1 [facility] pollen 0-20 [place] 00:00: e [facility] wheat FA Active MO UPSET 2020-1 [facility] STOMACH 0-20 [place] 00:00: e [facility] wheat FA Active MO 2020-0 [facility] 4-03 [place] 00:00: e 00 [facility] wheat FA Active MO UPSET 2020-0 [facility] STOMACH 4-03 [place] 00:00: e [facility] codeine DA Active CO 2020-0 [facility] 3-06 [place] 00:00: e [facility] beeswax DA Active CO 2020-0 [facility] 3-06 [place] 00:00: e 00 [facility] metronid DA Active CO UNKNOWN 2020-0 [facility] azole 3-06 [place] 00:00: e [facility] ranitidi DA Active CO 2020-0 [facility] ne 3-06 [place] 00:00: e [facility] bee DA Active CO 2020-0 [facility] pollen 3-06 [place] 00:00: e 00 [facility] codeine DA Active CO UNSURE 2020-0 [facility] 3-06 [place] 00:00: e 00 [facility] beeswax DA Active CO HAS EPI PEN 2020-0 [facility] 3-06 [place] 00:00: e 00 [facility] ranitidi DA Active CO UNSURE 2020-0 [facility] ne 3-06 [place] 00:00: e [facility] bee DA Active CO RASH 2020-0 [facility] pollen 3-06 [place] 00:00: e 00 [facility] codeine DA Active CO 2019-0 [facility] 7-16 [place] 00:00: Helms 00 [facility] beeswax DA Active CO 2019-0 [facility] 7-16 [place] 00:00: Helms 00 [facility] metronid DA Active CO 2019-0 [facility] azole 7-16 [place] 00:00: Helms 00 [facility] ranitidi DA Active CO 2019-0 [facility] ne 7-16 [place] 00:00: Helms 00 [facility] bee DA Active CO 2019-0 [facility] pollen 7-16 [place] 00:00: Helms 00 [facility] codeine DA Active CO UNSURE 2019-0 [facility] 7-16 [place] 00:[facility]: e [facility] beeswax DA Active CO HAS EPI PEN 2019-0 [facility] 7-16 [place] 00:00: e 00 [facility] ranitidi DA Active CO UNSURE 2019-0 [facility] ne 7-16 [place] 00:00: e [facility] bee DA Active CO RASH 2019-0 [facility] pollen 7-16 [place] 00:00: e [facility] codeine DA Active CO 2019-0 [facility] 3-15 [place] 00:00: e 00 [facility] beeswax DA Active CO 2019-0 [facility] 3-15 [place] 00:00: e [facility] metronid DA Active CO 2019-0 [facility] azole 3-15 [place] 00:00: e 00 [facility] ranitidi DA Active CO 2019-0 [facility] ne 3-15 [place] 00:00: e [facility] bee DA Active CO 2019-0 [facility] pollen 3-15 [place] 00:00: e [facility] clindamy DA Active CO 2019-0 [facility] code[facility] DA Active CO 2019-0 [facility] 2-07 [place] 00:00: e 00 [facility] beeswax DA Active CO 2019-0 [facility] 2-07 [place] 00:00: e 00 [facility] metronid DA Active CO 2019-0 [facility] azole 2-07 [place] 00:00: e 00 [facility] ranitidi DA Active CO 2019-0 [facility] ne 2- [place] 00:00: e [facility] bee DA Active CO 2019-0 [facility] pollen 2- [place] 00:00: e [facility] codeine DA Active CO 2019-0 [facility] - [place] 00[facility]: e [facility] beeswax DA Active CO 2019-0 [facility] - [place] 00:00: e [facility] metronid DA Active CO 2019-0 [facility] azole - [place] 00:00: e [facility] ranitidi DA Active CO 2019-0 [facility] ne 04-01 [facility] 00:00: e 00 [facility] bee DA Active CO 2019-0 [facility] Codeine Allergy Active SEE THINGS 2019-[address] [facility] Ranitidi Allergy Active ORGANS 2019-[address] [facility] ne to SWELLED UP 1-08 [facility] BEE Allergy Active Severe ANAPHYLATIC 2019-[address] [facility] STINGS to 1-08 [facility] codeine DA Active CO 2018-1 [facility] 2- [place] 00[facility]: e [facility] beeswax DA Active CO 2018-1 [facility] 2- [place] 00:00: e [facility] metronid DA Active CO 2018-1 [facility] azole 2- [place] 00:00: e [facility] ranitidi DA Active CO 2018-1 [facility] ne 2- [place] 00:00: e [facility] bee DA Active CO 2018-1 [facility] pollen 2- [place] 00:00: e [facility] codeine DA Active CO 2018-1 [facility] 0-12 [place] 00:00: e 00 [facility] beeswax DA Active CO 2018-1 [facility] 0-12 [place] 00:00: e 00 [facility] metronid DA Active CO 2018-1 [facility] azole 0-12 [place] 00:00: e [facility] ranitidi DA Active CO 2018-1 [facility] ne 0-12 [place] 00:00: e [facility] bee DA Active CO 2018-1 [facility] pollen 0-12 [place] 00:00: e 00 [facility] Not DA Active U 2018-1 [facility] Converte 0-12 [place] d 476. 00:00: e See 00 [facility] Not DA Active U 2018-1 [facility] Converte 0-12 [place] 551. 00:00: e See 00 [facility] codeine DA Active CO 2018-1 [facility] 0-06 [place] 00:00: e [facility] beeswax DA Active CO 2018-1 [facility] 0-06 [place] 00:00: e 00 [facility] metronid DA Active CO 2018-1 [facility] azole 0-06 [place] 00:00: e 00 [facility] ranitidi DA Active CO 2018-1 [facility] ne 0-06 [place] 00:00: e 00 [facility] bee DA Active CO 2018-1 [facility] pollen 0-06 [place] 00:00: e 00 [facility] Not DA Active U 2018-1 [facility] Converte 0-06 [place] d 476. 00:00: e See 00 [facility] Not DA Active U 2018-1 [facility] Converte 0-06 [place] d 551. 00:00: e See 00 [facility] CODEINE DA Active CO 2018-1 [facility] 0-06 [place] 00:[facility]: e [facility] FLAGYL DA Active CO 2018-1 [facility] 0-06 [place] 00:00: e 00 [facility] ZANTAC DA Active CO 2018-1 [facility] 0-06 [place] 00:00: e 00 [facility] codeine DA Active CO 2018-0 [facility] 8-28 [place] 00:00: e 00 [facility] beeswax DA Active CO 2018-0 [facility] 8-28 [place] 00:00: e 00 [facility] ranitidi DA Active CO 2018-0 [facility] ne 8-28 [place] 00:00: e 00 [facility] bee DA Active U 2018-0 [facility] pollen 8-28 [place] 00:00: e 00 [facility] codeine DA Active U 2002-0 [facility] 8-10 [place] 00:00: e 00 [facility] ranitidi DA Active U 2002-0 [facility] ne 8-10 [place] 00:00: e 00 [facility] metronid DA Active U 2001-0 [facility] azole 8-10 [place] 00:00: e 00 [facility] Not DA Active U 2002-0 [facility] Converte 8-10 [place] d 476. 00:00: e See 00 [facility] Not DA Active U 2002-0 [facility] Converte 8-10 [place] 551. 00:00: e See 00 [facility] CODEINE DA Active U 2002-0 [facility] 8-10 [place] 00:00: e 00 [facility] FLAGYL DA Active U 2002-0 [facility] 8-10 [place] 00:[facility]: e 00 [facility] No Known DA Active U 2002-0 [facility] Contrast 8-10 [place] Allergie 00:00: e s 00 [facility] No Known DA Active U 2002-0 [facility] Food 8-10 [place] Allergie 00:00: e s 00 [facility] No Known DA Active U 2001-0 [facility] ZANTAC DA Active U 2002-0 [facility] 8-10 [place] 00:00: e 00 [facility] Medications This patient has no known medications. Procedures This patient has no known procedures. Encounters Start End Encounter Admission Attending Care Care Encounter Source Date/Time Date/Time Type Type Clinicians Facility Department ID 2021-05-28 Outpatient [facility] [id number] [place] 06:57:57 [id number] [facility] 2021-03-30 Outpatient [facility]LML[facility] STL[facility]C [id number] Common 12:47:57 [id number] [facility] 2021-03-30 Outpatient STLMLC STLMLC [id number] Common 12:37:54 [id number] [facility] 2021-03-30 Outpatient STLMLC STLMLC [id number] Common 12:35:27 [id number] [facility] 2021-03-30 Outpatient STLMLC STLMLC [id number] Common 12:27:11 [id number] [facility] 2021-03-22 2021-03-22 Outpatient [facility] PIJFIEB TPO COH 00:00:00 00:00:00 [id number] 2021-03-14 2021-03-14 Outpatient [facility] PIJFIEB TPO [facility]H 00:00:00 00:00:00 [id number] 2020-12-15 2020-12-15 Outpatient ADRIEL Mahoney, [facility] USN [id number] [facility] 09:00:00 09:00:[address] [facility] 2020-10-15 2020-10-15 Outpatient ADRIEL Mahoney, [facility] USN [id number] [facility] 09:29:00 09:29:[address] [facility] 2020-09-23 2020-09-24 Inpatient EM Christian, [facility] MED [id number] [facility] 10:54:00 15:57:[address] [facility] 2020-09-06 2020-09-07 Emergency EM Chas, [facility] FLAKO [id number] [facility] 21:34:00 07:00:[address] [facility] 2020-08-10 2020-08-10 Emergency EM Aamir, [facility] FLAKO [id number] [facility] 13:16:00 14:31:[address] [facility] 2020-08-01 2020-08-01 Inpatient [facility]ABM [facility]M [id number] [facility] 13:43:45 13:43:[address] [facility] 2020-02-17 2020-02-17 Outpatient [facility] [id number] [facility] 19:30:00 19:30:00 [id number] [facility] 2020-02-05 2020-02-08 Inpatient [facility] FLAKO [id number] [facility] 06:30:00 02:05:[address] [facility] 2019-12-23 2019-12-26 Inpatient [facility] FLAKO [id number] [facility] 23:35:00 06:57:[address] [facility] 2019-12-12 2019-12-16 Inpatient [facility] FLAKO [id number] [facility] 14:14:00 07:05:[address] [facility] 2019-07-10 2019-07-14 Inpatient [facility] FERS [id number] [facility] 18:43:00 22:24:[address] [facility] 2019-06-16 2019-06-18 Inpatient [facility] FERS [id number] [facility] 17:01:00 04:10:[address] [facility] 2019-06-06 2019-06-09 Inpatient [facility] FLAKO [id number] [facility] 10:14:00 09:39:[address] [facility] 2019-05-18 2019-05-21 Inpatient [facility] FLAKO [id number] [facility] 14:02:00 00:06:[address] [facility] 2019-05-09 2019-05-12 Inpatient [facility] FLAKO [id number] [facility] 09:07:00 04:21:[address] [facility] 2018-03-12 2018-03-12 Departed [facility] [id number] 10:00:00 12:45:00 Emergency [facility] Results Test Description Test Time Test Comments Results Result [facility] e Comments - US TRANSVAGINAL 2020-12-15 NON OB 10:45:00 [facility])Name: CASSANDRA WHITT : 1955 Sex: F * Name: CASSANDRA WHITT [facility] : 1955 Age/S: 65 / F [address] Unit #: [id number] Loc: Timothy [place] [address] Phys: Luiza Mahoney MD Acct: [id number] Dis Date: Status: REG CLI PHONE #: [phone] Exam Date: 12/15/2020 0934 FAX #: [phone] Reason: EXAMS: CPT CODE: [id number] [place] [address] HISTORY: Pelvic pain. COMPARISON: None available. Location: [facility]. Transabdominal and transvaginal (for better endometrial and [...] Amish De Anda MD Technologist: MER BELTRAN RT(R),[facility] Trnlab Date/Time: 12/15/2020 (1045) [email or web address] Orig Print D/T: S: 12/15/2020 (1048) Probe: [id number] PAGE 1 Signed Report - US PELVIS 2020-12-15 COMPLETE 10:45:00 [facility])Name: CASSANDRA WHITT FRANCIS : 1955 Sex: F * Name: CASSANDRA WHITT [facility] : 1955 Age/S: 65 / F [address] Unit #: [id number] Loc: [place] [address] Phys: Luiza Mahoney MD Acct: [id number] Dis Date: Status: REG CLI PHONE #: [phone] Exam Date: 12/15/2020 0900 FAX #: [phone] Reason: R10.2 EXAMS: CPT CODE: [id number] US PELVIS COMPLETE 64780 HISTORY: Pelvic pain. COMPARISON: None available. Location: [facility]. Transabdominal and transvaginal (for better endometrial and [...] Amish De Anda MD Technologist: MER BELTRAN RT(R),[facility] Trnscb Date/Time: 12/15/2020 (1095) [email or web address] Orig Print D/T: S: 12/15/2020 (2303) Probe: PAGE 1 Signed Report - US PELVIS 2020-10-15 COMPLETE 11:39:00 [facility]Name: CASSANDRA WHITT : 1955 Sex: F * Name: CASSANDRA WHITT [facility] : 1955 Age/S: 65 / F [address] Unit #: [id number] Loc: [place] [address] Phys: Luiza Mahoney MD Acct: [id number] Dis Date: Status: REG CLI PHONE #: [phone] Exam Date: 10/15/2020 1037 FAX #: [phone] Reason: R10.2 EXAMS: CPT CODE: [id number] US PELVIS COMPLETE 42081 HISTORY: Pelvic pain. COMPARISON: None available. Location: [facility]. Transabdominal and transvaginal (for better endometrial and [...] Technologist: VIVIEN SILVA RT(R),[facility] Trnscb Date/Time: 10/15/2020 (1132) [email or web address] Orig Print D/T: S: 10/15/2020 (1144) Probe: PAGE 1 Signed Report - US TRANSVAGINAL 2020-10-15 NON OB 11:39:00 [facility])Name: CASSANDRA WHITT : 1955 Sex: F * Name: CASSANDRA WHITT [facility] : 1955 Age/S: 65 / F [address] [facility] Unit #: [id number] Loc: [place] [address] Phys: Luiza Mahoney MD Acct: [id number] Dis Date: Status: REG CLI PHONE #: [phone] Exam Date: 10/15/2020 1037 FAX #: [phone] Reason: EXAMS: CPT CODE: [id number] [place] [address] HISTORY: Pelvic pain. COMPARISON: None available. Location: [facility]. Transabdominal and transvaginal (for better endometrial and [...] Amish De Anda MD Technologist: VIVIEN SILVA RT(R),[facility] Date/Time: 10/15/2020 (1138) [email or web address] Orig Print D/T: S: 10/15/2020 (1142) Probe: [id number] PAGE 1 Signed Report TROPONIN-I 2020-09-24 08:04:00 Test Item Value Reference Range Interpretation Comme nts TROPONIN-I (test code = TROPI) 0.008 ng/mL 0-0.045 N COMMENTS TO PLANER STONE: COLLECT 3 HOURS AFTER PREVIOUS SAMPLETROPONIN-I 2020-09-23 22:49:00 Test Item Value Reference Range Interpretation Comments TROPONIN-I (test code = TROPI) 0.013 ng/mL 0-0.045 N COMMENTS TO PLANER STONE: COLLECT 3 HOURS AFTER PREVIOUS SAMPLELIPID PROFILE (CORONARY RISK)2020-09-23 22:48:00 Test Item Value Reference Range Interpretation Comments TRIGLYCERIDES (test 113 mg/dL 20-150 N code = TRIG) CHOLESTEROL (test code 118 mg/dL 0-200 N = CHOL) CHOLESTEROL/HDL RATIO 3.0 RATIO 0-4.9 N RISK A SSOCIATED WITH (test code = CHOLHDL) CHOL/H DL RATIOS: Risk Male Female1/2 AVERAGE 3.43 3.27AVERAG E 4.97 4.442X AVERAGE 9.55 7.053X AVERAGE 23.39 11.04 REFERENCE VALUE IS RELATED TO R ISK LEVELS ASRECOMM ENDED BY THE NAT. HOOD RT, LUNG, AND BLOOD INST. HDL CHOLESTEROL (test 32 mg/dL 40-60 L code = HDL) LIPOPROTEIN LDL (test 72 mg/dL 100-129 L ====== code = LDL) ======= Referen ce Interval: mg /dL mmol/L--------- ------- ------- ------O ptimal <100 <2.6Near/above optimal 100-129 2.6-3.3Borderli ne High 130-159 3.4-4.1 High 160-189 4.1-4. 9Very High >=190 >=4.9========= This LDL result is a direct measurement.=== ====== COVID 19 INHOUSE [id number] 13:22:00 Test Item Value Reference Range Interpretation Comments COVID 19 INHOUSE AG (test code = NEGATIVE NEGATIVE [id number]) BASIC METABOLIC [id number] 12:24:00 Test Item Value Reference Range Interpretation [...] >3 months. [Automated mess age] The system [employer] generated this result transmitted ref erence range: >=60. Th e reference range was not used to int erpret this result as normal/abnormal . CREATININE (test 0.80 mg/dL 0.55-1.02 N Note arechiga ge in code = CREAT) reference rang e due to change in reagent. BUN/CREATININE RATIO 17.9 10-20 N (test code = BUN/CREA) CALCIUM (test code = 9.0 mg/dL 8.5-10.1 N CA) [id number] 12:24:00 Test Item Value Reference Range Interpretation Comments TROPONIN-I (test code = TROPI) 0.011 ng/mL 0-0.045 N - XR CHEST 1 [id number] 11:47:00 [facility] CASSANDRAANGELA BLANCO : 1955 Sex: F FAX: Stuart Saldivar [phone] [place]: St: [facility] FAX: Amish Lai MD [phone] Name: CASSANDRA WHITT [facility] : 1955 Age/S: 65/F [address] [facility] Unit #: [id number] Loc: [place] [address] Phys: Stuart Spivey MD Acct: [id number] Dis Date: Status: REGER PHONE #: [phone] Exam Date: 09/23/2020 1140 FAX #: [phone] Reason: CHEST PAIN EXAMS: CPT CODE: [id number] XR CHEST 1 V 29805 HISTORY: Chest pain. COMPARISON: December 12, 2019. Location: [facility]. No acute infiltrates, effusion or congestion is noted. Hyperinflation. Right OUTSIDE MACHINIST HELPER shunt catheter noted again the tip coiled within the left upper quadrant. The cardiac and mediastinal silhouette are within normal limits. IMPRESSION: No acute infiltrates, effusion or congestion. Electronically Signedby Sg Giordano on 09/23/2020 at 1147 Reported and signed by: Aristides Giordano M.D. CC: Stuart Spivey MD; Amish De Anda MD Technologist: RT ERICKA(R) Trnscrd Date/Time/By: 09/23/2020 (8066) : By: [email or web address] Orig Print D/T: S: 09/23/2020 (1664) PAGE 1 Signed ReportCBC W/O DIFF 2020-09-23 11:36:00 Test Item Value Reference Range Interpretation [...] 9.9 fL 6.7-11.0 N = MPV) URINALYSIS [id number] 03:38:00 Test Item Value Reference Range Interpretation [...] A BACU) Urine Source? Clean CatchBASIC METABOLIC [id number] 00:52:00 Test Item Value Reference Range Interpretation [...] >3 months. [Automated mess age] The system [employer] generated this result transmitted ref erence range: [...] 9.3 mg/dL 8.5-10.1 N CA) HEPATIC FUNCTION [id number] 00:52:00 Test Item Value Reference Range Interpretation [...] range due ALKP) to change in reagent. [id number] 00:52:00 Test Item Value Reference Range Interpretation Comments LIPASE (test code = LIP) 27 U/L 12.00-57.00 N [id number] 00:52:00 Test Item Value Reference Range Interpretation Comments TROPONIN-I (test code = TROPI) < 0.006 ng/mL 0-0.045 N CBC W/O [id number] 00:20:00 Test Item Value Reference Range Interpretation [...] MPV) - XR FOOT 3 + V [id number] 14:32:00 [facility] 1955 Sex: F FAX: Catie Stephens NP [place]: St: [facility] FAX: Amish Lai MD [phone] ---- Name: DORIAN CHRISSYCASSANDRA BLANCO [facility] : 1955 Age/S: 64/F [address] Unit #: [id number] Loc: [place] [address] Phys: Catie Stephens NP Acct: [id number] Dis Date: Status: REG ER PHONE #: [phone] Exam Date: 08/10/2020 [facility] FAX #: [phone] Reason: R heel pain EXAMS: CPT CODE: [id number] FOOT 3 + [place] [address] CLINICAL HISTORY: R heel pain TECHNIQUE: AP, oblique, and lateral views of the left foot COMPARISON: None FINDINGS: No acute fracture or dislocation. Bony trabecular pattern is u nremarkable. No cortical destruction or periosteal reaction. Joint spaces are preserved. Ankle mortise is appropriately aligned. Regional soft tissues are unremarkable. IMPRESSION: No radiographicallyevident bony abnormalities of the left foot. Location: [facility] at 1432 Reported and signed by: Seth Darling MD CC: Catie Stephens INFORMATION TECHNOLOGY ANALYST; Amish De Anda MD Technologist: RT Uday(R); STUDENT TECHNOLOGIST Trnlard Date/Time/By: 08/10/2020 (3027) : By: [email or web address] Orig Print D/T: S: 08/10/2020 (0216) PAGE 1 Signed ReportURINALYSIS [id number] 15:58:00 Test Item Value Reference Range Interpretation [...] Urine Source? Clean CatchDRUGS OF ABUSE SCREEN [id number] 15:58:00 Test Item Value Reference Range Interpretation Comments URN COCAINE (test code = NEGATIVE See_Comment [A utomated message] COCAURN) The system [employer] generated this result transmitted ref erence range: [...] See_Comment [A utomated message] OPIATURN) The system [employer] generated this result transmitted ref erence range: [...] [A utomated message] = METHAURN) The system [employer] generated this result transmitted ref erence range: <300 ng/ mL. The reference r jeffery was not used to interpret this result as normal/abnor mal. Urine Source? Clean CatchBASIC METABOLIC [id number] 15:58:00 Test Item Value Reference Range Interpretation [...] Modifi ed MDRD (test code = GFR) formula.[facility] kidney disease is defined as eith er kidney damageor GFR <60 mL/min/1.73 m2 for >3 months. [Automated mess age] The system [employer] generated this result transmitted ref erence range: [...] 9.0 mg/dL 8.5-10.1 N CA) HEPATIC FUNCTION [id number] 15:58:00 Test Item Value Reference Range Interpretation [...] code = 197 IUnit/L 26-208 N CK) [id number] 15:58:00 Test Item Value Reference Range Interpretation Comments TROPONIN-I (test code = TROPI) < 0.006 ng/mL 0-0.045 N [id number] 15:58:00 Test Item Value Reference Range Interpretation [...] CHARGE TO THE P ATIENT. B-TYPE NATRIURETIC [id number] 15:54:00 Test Item Value Reference Range Interpretation Comments B-TYPE NATRIURETIC PEPTIDE 31.3 pgram/mL 0-100 N (test code = BNP) URINALYSIS [id number] 15:33:00 Test Item Value Reference Range Interpretation [...] Urine Source? Clean CatchDRUGS OF ABUSE SCREEN [id number] 15:33:00 Test Item Value Reference Range Interpretation Comments URN COCAINE (test code = See_Comment [A utomated message] COCAURN) The system [employer] generated this result transmitted ref erence range: [...] See_Comment [Automated message] = AMPHETURN) The system [employer] generated this result transmitted ref erence range: <1000 ng /mL. The reference r jeffery was not used to interpret this result as normal/abnor mal. URN BARBITURATE (test code See_Comment [Automated message] = BARBITURN) The system [employer] generated this result transmitted ref erence range: [...] See_Comment [A utomated message] OPIATURN) The system [employer] generated this result transmitted ref erence range: [...] = See_Comment [Automated message] METHAURN) The system [employer] generated this result transmitted ref erence range: <300 ng/ mL. The reference range was not used to int erpret this result as normal/abnormal . Urine Source? Clean CatchDRUGS OF ABUSE SCREEN [id number] 15:30:00 Test Item Value Reference Range Interpretation Comments URN COCAINE (test code = See_Comment [A utomated message] COCAURN) The system [employer] generated this result transmitted ref erence range: [...] See_Comment [Automated message] = AMPHETURN) The system [employer] generated this result transmitted ref erence range: <1000 ng /mL. The reference r jeffery was not used to interpret this result as normal/abnor mal. URN BARBITURATE (test code See_Comment [Automated message] = BARBITURN) The system [employer] generated this result transmitted ref erence range: [...] See_Comment [A utomated message] OPIATURN) The system [employer] generated this result transmitted ref erence range: [...] = See_Comment [Automated message] METHAURN) The system [employer] generated this result transmitted ref erence range: <300 ng/ mL. The reference range was not used to int erpret this result as normal/abnormal . Urine Source? Clean CatchURINALYSIS [id number] 15:30:00 Test Item Value Reference Range Interpretation [...] NONE BACU) Urine Source? Clean CatchCBC W/O [id number] 15:29:00 Test Item Value Reference Range Interpretation [...] MPV) - XR WRIST 3 + V [id number] 07:37:00 [facility] 1955 Sex: F FAX: Amish Lai MD [phone] [place]: B St: REG FAX: Shaan Lozano DO ------- Name: CASSANDRA WHITT [facility] : 1955 Age/S: 64/F [address] Unit #: [id number] Loc: [place] [address] Phys: Shaan Lozano DO Acct: [id number] Dis Date: Status: REG ER PHONE #: [phone] Date: 02/05/2020 07 FAX #: [phone] Reason: WRIST PAIN EXAMS: CPT CODE: [id number] XR WRIST 3 + V LT [address]04 REASON FOR EXAM: WRIST PAIN EXAM ORDER DATE: 02/05/2020 6:34 AM Ordering M.D.: Shaan Lozano DO PROCEDURE: - XR WRIST 3 + V LT Comparison:None FINDINGS: No evidence of fracture. The joint spaces are maintained and the arcs of [place] are intact. The carpal and metacarpal bones are unremarkable. There is normal alignment of the radiocarpal joint space. The visualized bones of the hand are within normal limits. Soft tissues are within normal limits. IMPRESSION: No acute bony abnormalities of the left wrist. Location: [facility] at 0737 Reported and signed by: Seth Darling MD CC: Amish De Anda MD; Shaan Lozano DO Technologist: [place] Trnlard Date/Time/By: 02/05/2020 (0737) : By: [email or web address] Orig Print D/T: S: 02/05/2020(0740) PAGE 1 Signed Report- XR ELBOW 3 + V [id number] 07:35:00 [facility] : 1955 Sex: F FAX: Amish Lai MD [phone] [place]: St: [facility] FAX: Shaan Lozano DO ------- Name: CASSANDRA WHITT [facility] : 1955 Age/S: 64/F [address] [facility]: [id number] Loc: [place] [address] Phys: Shaan Lozano DO Acct: [id number] Dis Date: Status: REG ER PHONE #: [phone] Date: 02/05/2020 0708 FAX #: [phone] Reason: ELBOW PAIN EXAMS: CPT CODE: [id number] XR ELBOW 3 + V LT 38559 CLINICAL HISTORY: SHOULDER PAIN TECHNIQUE: 3 views of the left shoulder, 6 views of the left humerus, 3 views of the left elbow. COMPARISON: None FINDINGS/ IMPRESSION: There is a comminuted fracture in the left humeral head. No extension to the glenohumeral joint. No other fracturesare seen. Glenohumeral and acromioclavicular joints are appropriately aligned. No intra-articular bone fragment is seen. The elbow joint is also appropriately aligned. Additionally there is no elbow joint effusion. Location: [facility] at 0735 Reported and signed by: Seth Darling MD CC: Amish De Anda MD; Shaan Lozano DO Technologist: [place] Trnscrd Date/Time/By: 02/05/2020 (0735) : By: [email or web address] Orig Print D/T: S: 02/05/2020 (0709)PAGE 1 Signed Report- XR HUMERUS 2 + V [id number] 07:35:00 [facility] : 1955 Sex: F FAX: Amish Lai MD [phone] [place]: St: [facility] FAX: Shaan Lozano DO ------- Name: CASSANDRA WHITT [facility] : 1955 Age/S: 64/F [address] Unit #: [id number] Loc: [place] [address] Phys: Shaan Lozano DO Acct: [id number] Dis Date: Status: REG ER PHONE #: [phone] Exam Date: 02/05/2020 0703 FAX #: [phone] Reason: ARM PAIN EXAMS: CPT CODE: [id number] XR HUMERUS 2 + V LT 00135 CLINICAL HISTORY: SHOULDER PAIN TECHNIQUE: 3 views of the left shoulder, 6 views of the left humerus, 3 views of the left elbow. COMPARISON: None FINDINGS/ IMPRESSION: There is a comminuted fracture in the left humeral head. No extension to the glenohumeral joint. No other fractures a re seen. Glenohumeral and acromioclavicular joints are appropriately aligned. No intra-articular bone fragment is seen. The elbow joint is also appropriately aligned. Additionally there is no elbow joint effusion. Location: [facility] at 0735 Reported and signed by: Seth Darling MD CC: Amish De Anda MD; Shaan Lozano DO Technologist: [place]) Trnscrd Date/Time/By: 02/05/2020 (0704) : By: [email or web address] Orig Print D/T: S: 02/05/2020 (0726) PAGE 1 Signed Report- XR SHOULDER 2 + V LT 2020-02-05 07:35:00 [facility]OWECASSANDRA LORA : 1955 Sex: F FAX: Amish Lai MD [phone] [place]: St: REG FAX: Shaan Lozano DO ------- Name: DORIAN CASSANDRA VALDES [facility] : 1955 Age/S: 64/F [address] Unit #: [id number] Loc: [place] [address] Phys: Shaan Lozano DO Acct: [id number] Dis Date: Status: REG ER PHONE #: [phone] Exam Date: 02/05/2020 0658 FAX #: [phone] Reason: SHOULDER PAIN EXAMS: CPT CODE: [id number] XRSHOULDER 2 + V LT [address]164 CLINICAL HISTORY: SHOULDER PAIN TECHNIQUE: 3 views of the left shoulder, 6 views of the left humerus, 3 views of the left elbow. COMPARISON: None FINDINGS/ IMPRESSION: There is a comminuted fracture in the left humeral head. No extension to the glenohumeral joint. No other fract ures are seen. Glenohumeral and acromioclavicular joints are appropriately aligned. No intra-articular bone fragment is seen. The elbow joint is also appropriately aligned. Additionally there is no elbow joint effusion. Location: [facility] at 0735 Reported and signed by: Seth Darling MD CC: Amish De Anda MD; Shaan Lozano DO Technologist: [place]) Trnscrd Date/Time/By: 02/05/2020 (0735) : By: [email or web address] Orig Print D/T: S: 02/05/2020 (0738) PAGE 1 Signed Report- CT C-SPINE W/O [id number] 06:52:00 [facility]Name: CASSANDRA WHITT : 1955 Sex: F Name: CASSANDRA WHITT [facility] : 1955 Age[facility]S: 64 / F [address] [facility] Unit #: [id number] Loc: [place] [address] Phys: Shaan Lozano DO Acct: [id number] DisDate: Status: REG ER PHONE #: [phone] Exam Date: 02/05/2020 0646 FAX #: [phone] Reason: Neck Pain EXAMS: CPT CODE: [id number] CT C-SPINE W/O CONTRAST 54658 Dictation location: [facility]. CT CERVICALSPINE WITHOUT CONTRAST; SAGITTAL AND CORONAL REFORMATTED VIEWS. HISTORY: Neck Pain COMPARISON: CT cervical spine 12/12/19 TECHNIQUE: Axial CT images of the cervical spine were obtained with coronal andsagittal reformatted views. Automated exposure control, iterative reconstruction technique, and/or adjustment of mA and/or kV according to patient's size was utilized for radiation dose reduction. IV CONTRAST: None. FINDINGS: Cervical alignment is satisfactory without evidence of a fracture or subluxation. At C4-C5, degenerative changes noted with right uncovertebral hypertrophy and facet arthrosis causing no significant spinal canal stenosis and moderate right neuroforaminal narrowing. Right-sidedshunt tubing is noted. IMPRESSION: No cervical spine fracture or subluxation. Degenerative changes at C4-C5 with moderate right neuroforaminal narrowing. at 0652 Reported and signed by: Juanjose Brian M.D. CC: Amish De Anda MD; Shaan Lozano DO Technologist:RT HERIBERTO CTDI: DLP: Trnscb Date/Time: 02/05/2020 (06) [email or web address] Orig Print D/T: S: 02/05/2020 (0655) PAGE 1 Signed Report- CT HEAD/BRAIN W/O [id number] 06:50:00 [facility]Name: CASSANDRA WHITT : 1955 Sex: F Name: CASSANDRA WHITT [facility] : 1955 Age/S: 64 / F [address] Unit #: [id number] Loc: [place] [address] Phys: Shaan Lozano DO Acct: [id number] DisDate: Status: REG ER PHONE #: [phone] Exam Date: 02/05/2020 0640 FAX #: [phone] Reason: HEADACHE EXAMS: CPT CODE: [id number] CT HEAD/BRAIN W/O CONT 10326 Dictation location: H37. CT HEAD WITHOUT CONTRAST. HISTORY: HEADACHE COMPARISON: CT head 12/23/19. TECHNIQUE: Axial CT images of the head were obtained with coronal and/or [...] HERIBERTO CTDI: DLP: Trnscb Date/Time: 02/05/2020 (0650) [email or web address] Orig Print D/T: S: 02/05/2020 (0749) PAGE 1 Signed Report- SP SHUNTOGM [id number] 00:40:00 [facility]Name: CASSANDRA TORRES : 1955 Sex: F FAX: Winston Lang DO [phone] [place]: St: [facility] FAX: Amish Lai MD Name: CASSANDRA TORRES [facility] : 1955 Age/S: 64/F [address] [facility] Unit #: [id number] Loc: [place] [address] Phys: Winston Rutledge DO Acct: [id number] Dis Date: Status: REG ER PHONE #: [phone] Exam Date: 12/23/2019 0010 FAX #: [phone] Reason: HEAD TRAUMA, POSSIBLE DAMAGE TO OUTSIDE MACHINIST HELPER SHUNT EXAMS: CPT CODE: [id number] SHUNTOGM [facility] [address] EXAM: Shuntogram, 7 images Location code:J9 HISTORY: HEAD TRAUMA, POSSIBLE DAMAGE TO OUTSIDE MACHINIST HELPER SHUNT COMPARISON: None available FINDINGS: A right parietal approach ventriculostomy shunt catheter is noted. The tip terminates at the regionof the midline and extends into the left upper quadrant of the abdomen. No acute fracture. Nonobstructive bowel gas pattern IMPRESSION: No acute findings. at 0040 Reported and signed by: Agus Hathaway M.D. CC: Winston Rutledge DO; Amish De Anda MD Technologist: Esther Vela Trnscrd Date/Time/By: 12/24/2019 (004) : By: [email or web address] Orig Print D/T: S: 12/24/2019 (004) PAGE 1 Signed Report- CT HEAD/BRAIN W/O [id number] 00:11:00 [facility] : 1955 Sex: F Name: CASSANDRA TORRES [facility] : 1955 Age/S: 64 / F [address] [facility] Unit #: [id number] Loc: [place] [address] Phys: Winston Rutledge DO Acct: [id number] Date: Status: PRE ER PHONE #: [phone] Exam Date: 12/23/2019 2350 FAX #: [phone] Reason: HEAD TRAUMA, POSSIBLE DAMAGE TO OUTSIDE MACHINIST HELPER SHUNT EXAMS: CPT CODE: [id number] CT HEAD/BRAIN W/O CONT 06711 Examination: Head CT without contrast Location code: H60 Comparison: 12/12/2019 Technique: Axial contiguous images through the brain were obtained without contrast media. All CT scans are performed using radiation dose reduction technique. Technical factors are evaluated and adjusted to insure appropriate moderation of exposure. Automated dose management technology is applied to adjust the radiation dose to minimize exposure while achieving a diagnostic quality image. Discussion: Clinical history is remarkable for trauma. Pain. There is no evidence of hydrocephalus, midline shift, extra-axial fluid collection, hemorrhage, acute infarction, or space-occupying mass lesion. The jaquez-white matter differ entiation is preserved. A right-sided ventriculoperitoneal shunt catheter is identified with its tipin the left lateral ventricle. When compared to the prior examination the position of the catheter is essentially unchanged. Appearance the brain is unchanged when compared to the prior study. The calvarium and the paranasal sinuses are within normal limits. Impression: 1. No acute intracranial abnormality. at 0011 Reported and signed by: Hunter Jaimes M.D. CC: Winston Rutledge Raul A MD Technologist:RT HERIBERTO CTDI: DLP:Trnscb Date/Time: 12/24/2019 (001) [email or web address] Orig Print D/T: S: 12/24/2019 (0014) PAGE 1 Signed Report THYROID STIMULATING [id number] 07:51:00 Test Item Value Reference Range Interpretation Comments THYROID STIMULATING 0.051 uIU/mL 0.36-3.74 L TSH REFE RENCE HORMONE (test code = RANGES: EUTHYROID: TSH) 0.35 - 4.3 mIU/ mL HYPO : > 5.5 mIU/mL HYPER : < 0.35 mIU/mL COMPREHENSIVE METABOLIC [id number] 07:43:00 Test Item Value Reference Range Interpretation [...] ALKP) to change in reagent. CBC W/AUTO [id number] 07:20:00 Test Item Value Reference Range Interpretation [...] code = 0.00 K/mm3 0.0-0.1 N NRBC#) [id number] 03:31:00 Test Item Value Reference Range Interpretation Comments TROPONIN-I (test code = TROPI) <0.015 ng/mL 0-0.045 N COMMENTS TO PLANER STONE: COLLECT 3 HOURS AFTER PREVIOUS SAMPLETROPONIN-I 2019-12-13 00:12:00 Test Item Value Reference Range Interpretation Comments TROPONIN-I (test code = TROPI) <0.015 ng/mL 0-0.045 N COMMENTS TO PLANER STONE: COLLECT 3 HOURS AFTER PREVIOUS SAMPLE- SP SHUNTOGM [id number] 16:43:00 FAX: Alex Lay MD [phone] [place]: B St: ADM FAX: Amish Lai MD [phone] Name: CASSANDRA TORRES [facility] : 1955 Age/S: 64/F [address] [facility] Unit #: [id number] Loc: [place] [address] Phys: Alex Lay MD Acct: [id number] Dis Date: Status: ADM IN PHONE #: [phone] Exam Date: 12/12/2019 1605 FAX #: [phone] Reason: headache vertigo h/o shunt EXAMS: CPT CODE: [id number] SP SHUNTOGM NONVASC 47699 EXAM: Shuntogram nonvascular; 5 views; INFORMATION: Headache and vertigo; history of OUTSIDE MACHINIST HELPER shunt; IMPRESSION: 1. The shunt is intact. 2. The abdominal portion of the shunt is coiled in the upper abdomen. The tip is located in the left subphrenic space. Surgical clips areseen in the gallbladder fossa. Location code: [facility] at 1643 Reported and signed by: True Orosco M.D. CC: Alex Lay MD; Amish De Anda MD Technologist: Miguel Crabtree, RT(R Trnscrd Date/Time/By: 12/12/2019 (1642) :By: Minor Orig Print D/T: S: 12/12/2019 (1645) PAGE 1 Signed Report- XR T-SPINE 3 [id number] 16:39:00 FAX: Alex Lay MD [phone] [place]: B St: ADM FAX: Amish Lai MD [phone] Name: CASSANDRA TORRES [facility] : 1955 Age/S: 64/F [address] [facility] Unit #: [id number] Loc: [place] [address] Phys: Alex Lay MD Acct: [id number] Dis Date: Status: ADM IN PHONE #: [phone] Exam Date: 12/12/2019 1600 FAX #: [phone] Reason: BACK PAIN EXAMS: CPT CODE: [id number] XR T-SPINE 3 VIEWS 11138 EXAM: Thoracic spine, 3 views; INFORMATION: Back pain after fall; FINDINGS: There isgood alignment of the thoracic spine. Vertebral bodies and posterior elements are intact; no evidence of fracture. Diffuse osteoporosis. Mild narrowing of disc spaces in the midthoracic spine. Paravertebral soft tissues are unremarkable. IMPRESSION: 1. No evidence of acute osseous trauma. 2. Diffuse osteoporosis. 2. Mild degenerative disc disease in the midthoracic spine. Location code: [facility] Electr onically Signed by Sg Orosco on 12/12/2019 at 1639 Reported and signed by: True Orosco M.D. CC: Alex Lay MD; Amish De Anda MD Technologist: Miguel Crabtree RT(R Trnscrd Date/Time/By: 12/12/2019 (163) : By: Minor Orig Print D/T: S: 12/12/2019 (9433) PAGE 1 Signed Report - XR CHEST 1 [id number] 16:37:00 FAX: Alex Lay MD [phone] [place]: St: [facility] FAX: Amish Lai MD [phone] Name: CASSANDRA TORRES [facility] : 1955 Age/S: 64/F [address] Unit #: [id number] Loc: [place] [address] Phys: Alex Lay MD Acct: [id number] Dis Date: Status: ADM IN PHONE #: [phone] Exam Date: 12/12/2019 1605 FAX #: [phone] Reason: WEAKNESS EXAMS: CPT CODE: [id number] XR CHEST 1 V 41434 EXAM: Chest x-ray, one view; INFORMATION: Weakness; mid and lower back pain after fall; FINDINGS: Lungs are clear; no infiltrates, no edema; no effusions; no pneumothorax. Pleural effusion ofthe left costophrenic angle. The heart is normal in size. Aortic calcifications. A OUTSIDE MACHINIST HELPER shunt projectsover the mediastinum. IMPRESSION: No evidence of active cardiopulmonary disease. Location code: [facility] at 1637 Reported and signed by: True Orosco M.D. CC: Alex Lay MD; Amish De Anda MD Technologist: RT Ritika(R Trnscrd Date/Time/By: 12/12/2019 (1637) : By: ConnorGRW Orig Print D/T: S: 12/12/2019 (9387)PAGE 1 Signed ReportBASIC METABOLIC [id number] 16:03:00 Test Item Value Reference Range Interpretation [...] code = 8.5 mg/dL 8.5-10.1 N CA) [id number] 16:03:00 Test Item Value Reference Range Interpretation Comments TROPONIN-I (test code = TROPI) <0.015 ng/mL 0-0.045 N BASIC METABOLIC [id number] 15:57:00 Test Item Value Reference Range Interpretation [...] CALCIUM (test code = CA) mg/dL 8.5-10.1 [id number] 15:57:00 Test Item Value Reference Range Interpretation Comments TROPONIN-I (test code = TROPI) ng/mL 0-0.045 PROTHROMBIN [id number] 15:52:00 Test Item Value Reference Range Interpretation [...] ion INR range Pulmonary embol ism treatment (2.0-3.0)Venous thrombosis treatmentVenous thrombosis prophylaxis (hi gh risk surgery)Prevent ion of systemic emboli sm from: Acute myocardial infa rction Valvular heart disease Atrial fibrillation Mechanical pros thetic heart valves (2.5-3.5) IS PATIENT ON ANTICOAGULANTS? NTHROMBOPLASTIN TIME [id number] 15:52:00 Test Item Value Reference Range Interpretation Comments THROMBOPLASTIN TIME PARTIAL 26.8 seconds 23.0-37.0 N (test code = PTT) IS PATIENT ON ANTICOAGULANTS? NURINALYSIS [id number] 15:50:00 Test Item Value Reference Range Interpretation [...] NONE BACU) Urine Source? Clean CatchCBC W/O [id number] 15:47:00 Test Item Value Reference Range Interpretation [...] N = MPV) - CT C-SPINE W/O [id number] 14:48:00 Name: CASSANDRA TORRES [facility] : 1955 Age/S: 64 / F [address] Unit #: [id number] Loc: [place] [address] Phys: Alex Lay MD Acct: [id number] Dis Date: Status: PRE ER PHONE #: [phone] Exam Date: 12/12/2019 1435 FAX #: [phone] Reason: Neck Pain EXAMS: CPT CODE: [id number] CT C-SPINE W/O CONTRAST 43299 HISTORY: Neck pain. COMPARISON: None available. Location: [facility]. CT cervical spine without contrast: Automated exposure control. No acute fracture of the cervical spine. No prevertebral soft tissue swelling. Multilevel moderate foraminal stenosis from facet hypertrophy. No significant canal stenosis. Posterior osteophytes are visible. Unremarkable superior mediastinum. Thyroid glands are not visible. Lung apices are clear. Minimal bullous changes in the a pices. Anatomic alignment. Vertebral body heights are maintained. Disc spaces are preserved. OUTSIDE MACHINIST HELPER shunt catheter on the right side. Uncovertebral joints are narrowed. IMPRESSION: No acute fracture. Anatomic alignment. Vertebral body heights are maintained. DJD. at 1448 Reported and signed by: Aristides Giordano M.D. CC: Alex Lay MD; Amish De Anda MD Technologist:Tato Mayes RT(R),(MR),(CT) CTDI: DLP: Trnscb Date/Time: 12/12/2019 (1448) t.[email or web address].TH4 Orig Print D/T: S: 12/12/2019 (9773) PAGE 1 Signed Report- CT HEAD/BRAIN W/O [id number] 14:44:00 Name: CASSANDRA TORRES [facility] : 1955 Age/S: 64 / F [address] [facility] Unit#: [id number] Loc: [place], [place] [address] Phys: Alex Lay MD Acct: [id number] Dis Date: Status: PREER PHONE #: [phone] Exam Date: 12/12/2019 1433 FAX #: [phone] Reason: vertigo EXAMS: CPT CODE: [id number] CT HEAD/BRAIN W/O CONT 40786 HISTORY: Vertigo. COMPARISON: June 06, 2019. Location: [facility]. CT brain without contrast: Automated exposure control. No acute intracranial bleeds or extra-axial collections are noted. No acute territorial vascular infarction is noted. OUTSIDE MACHINIST HELPER shunt catheter from a right frontal/parietal approach with the tip crossing the midline and residing within the anterior horn of the left lateral ventricle. Mildly dilated lateral ventricles. This pattern is unchanged. The sulci, gyri, ventricles and subarachnoid spaces and the basilar cisterns are normal for patient's age.No herniation or hydrocephalus or midline shift is noted. Mild periventricular ischemic gliosis is noted. Age-appropriate atrophy is noted as well. Portions of the visualized paranasal sinuses are normal. Sclerosis of the mastoid air cells bilaterally. No obvious bony calvarial defect is noted. IMPRESSION: No acute intracranial bleeds or extra-axial collections. OUTSIDE MACHINIST HELPER shunt catheter from a right frontal/parietal approach with the tip crossing the midline and residing within the anterior horn of the left lateral ventricle. Mildly dilated lateral ventricles. This pattern is unchanged. No acute territorial vascular infarction. No herniation or hydrocephalus or midline shift. Chronic white matter ischemic disease and atrophy . PAGE 1 Signed Report (CONTINUED) Name: CASSANDRA TORRES [facility] : 1955 Age/S: 64 / F [address] [facility] Unit #: [id number] Loc: [place] [address] Phys: Alex Lay MD Acct: [id number] Dis Date: Status: PRE ER PHONE #: [phone] Exam Date: 12/12/2019 1433 FAX #: [phone] Reason: vertigo EXAMS: CPT CODE: [id number] CT HEAD/BRAIN W/O CONT 52885 (Continued) at 1444 Reported and signed by: Aristides Giordano M.D. CC: Alex Lay MD; Amish De Anda MD Technologist:Tato Mayes RT(R),(MR),(CT) CTDI: DLP: Trnscb Date/Time: 12/12/2019 (1444) t.SDR.TH4 Orig Print D/T: S: 12/12/2019 (6299) PAGE 2 Signed ReportPROTHROMBIN [id number] 07:11:00 Test Item Value Reference Range Interpretation [...] ion INR range Pulmonary embol ism treatment (2.0-3.0)Venous thrombosis treatmentVenous thrombosis prophylaxis (hi gh risk surgery)Prevent ion of systemic emboli sm from: Acute myocardial infa rction Valvular heart disease Atrial fibrillation Mechanical pros thetic heart valves (2.5-3.5) IS PATIENT ON ANTICOAGULANTS? YLIST ANTICOAGULANTS [id number] 09:01:00 Test Item Value Reference Range Interpretation Comments TROPONIN-I (test code = TROPI) <0.015 ng/mL 0-0.045 N COMMENTS TO PLANER STONE: COLLECT 3 HOURS AFTER PREVIOUS SAMPLELIPID PROFILE (CORONARY RISK)2019-07-11 09:01:00 Test Item Value Reference Range Interpretation Comments TRIGLYCERIDES (test 111 mg/dL 20-150 N code = TRIG) CHOLESTEROL (test code 155 mg/dL 0-200 N = CHOL) CHOLESTEROL/HDL RATIO 3.0 RATIO 0-4.9 N RISK A SSOCIATED WITH (test code = CHOLHDL) CHOL/H DL RATIOS: Risk Male Female1/2 AVERAGE 3.43 3.27AVERAGE 4.9 7 4.442X AVERAGE 9.55 7.053X AVERAGE 23.39 11.04 REFERENCE VALUE IS RELATED TO R ISK LEVELS ASRECOMM ENDED BY THE [employer] [place] RT, LUNG, AND BLOOD INST. HDL CHOLESTEROL (test 43 mg/dL 40-60 N code = HDL) LIPOPROTEIN LDL (test 92 mg/dL 100-129 L ====== code = LDL) ======= Referen ce Interval: m g/dL mmol/L--------- ------- ------- ------O ptimal <100 <2.6Near/above optimal 100-129 2.6-3.3Borderli ne High 130-159 3.4-4.1 High 160-189 4.1-4.9 Very High >=190 >=4.9========= This LDL result is a direct measurement.=== ====== THYROID STIMULATING [id number] 09:01:00 Test Item Value Reference Range Interpretation Comments THYROID STIMULATING 4.590 uIU/mL 0.36-3.74 H TSH REFE RENCE HORMONE (test code = RANGES: EUTHYROID: TSH) 0.35 - 4.3 mIU/ mL HYPO : > 5.5 mI U/mL HYPER : < 0.35 mIU/mL BASIC METABOLIC [id number] 08:35:00 Test Item Value Reference Range Interpretation [...] code = 8.7 mg/dL 8.5-10.1 N CA) [id number] 03:40:00 Test Item Value Reference Range Interpretation Comments TROPONIN-I (test code = TROPI) <0.015 ng/mL 0-0.045 N COMMENTS TO PLANER STONE: COLLECT 3 HOURS AFTER PREVIOUS SAMPLE- CT CHEST [id number] 20:56:00 Name: DORIANMICHELLE ESPINOZACHRISTIAN BLANCO [facility] : 1955 Age/S: 63 / F [address] [facility] Unit #: [id number] Loc: [place] [address] Phys: Cheyanne Welch MD Acct: [id number] Dis Date: Status: REG ER PHONE #: [phone] Exam Date: 07/10/20192024 FAX #: [phone] Reason: diaphoresis, elevated ddimer EXAMS: CPT CODE: [id number] CT CHEST W/CONTRAST 63560 [facility]AM[facility]; INFORMATION: Chest pain, suspicion of [...] M.D. CC: Amish De Anda MD Technologist:DARIAN MATA RT(R),RDMS,CT CTDI: DLP: Trnscb Date/Time: 07/10/2019 (2055) Minor Orig Print D/T: S: 07/10/2019 (2058) PAGE 1 Signed Report- XR CHEST 1 [id number] 20:34:00 Name: CASSANDRA TORRES [facility] : 1955 Age/S:63 /F [address] [facility] Unit#:[id number] Loc: [place] [address] Phys: Cheyanne Welch MD Dis Date: PHONE #: [phone] Status: REG ER FAX #: [phone] Exam Date: 07/10/2019 Reason:CHEST PAIN EXAMS: CPT CODE: [id number] XR CHEST 1 V 77693 EXAM: Chest x-ray, one view; INFORMATION: Chest pain; FINDINGS: There is a small density in the right paracardiac region which could be an evolving infiltrate or atelectasis. Opacification above the left costophrenic angle which does not obscure the diaphragm. The remainder of the lungs is clear. No evidence of pulmonary edema; The heart is borderline in size. Slightly tortuous aorta. IMPRESSION: 1. Suspicion of small right basilar infiltrate versus atelectasis. 2. Small opacification above the left costophrenic angle is probably due to atel ectasis. Location code: [facility] [id number] Reported and signed by: True Orosco M.D. CC: Amish De Anda MD Technologist: DARIAN MATA RT(R),RDMS,CT Trnscrpt Data: 07/10/2019 (2033) Minor Orig Print D/T: S: 07/10/2019 (2036) PAGE 1 Signed ReportURINALYSIS [id number] 19:53:00 Test Item Value Reference Range Interpretation [...] Urine Source? Clean CatchDRUGS OF ABUSE SCREEN [id number] 19:53:00 Test Item Value Reference Range Interpretation [...] = NEGATIVE NEGATIVE PHENCURN) Urine Source? Clean [id number] 19:53:00 Test Item Value Reference Range Interpretation Comments D-DIMER (test code = 745 ng/ml < 600 HH Results called to ANN MARIE Baumann V.LAB .AV1 07/10/19 1953Cr itical results verifie d and read back by Nu rse? Y URINALYSIS [id number] 19:52:00 Test Item Value Reference Range Interpretation [...] Urine Source? Clean CatchDRUGS OF ABUSE SCREEN [id number] 19:52:00 Test Item Value Reference Range Interpretation Comments URN COCAINE (test code = COCAURN) NEGATIVE URN CANNABINOIDS (test code = NEGATIVE CANNABURN) URN AMPHETAMINE (test code = AMPHETURN) NEGATIVE URN BARBITURATE (test code = BARBITURN) NEGATIVE URN BENZODIAZEPINE (test code = NEGATIVE BENZOURN) URN OPIATES (test code = OPIATURN) NEGATIVE URN PHENCYCLIDINE (PCP) (test code = NEGATIVE PHENCURN) Urine Source? Clean CatchURINALYSIS [id number] 19:50:00 Test Item Value Reference Range Interpretation [...] Urine Source? Clean CatchDRUGS OF ABUSE SCREEN [id number] 19:50:00 Test Item Value Reference Range Interpretation Comments URN COCAINE (test code = COCAURN) NEGATIVE URN CANNABINOIDS (test code = NEGATIVE CANNABURN) URN AMPHETAMINE (test code = AMPHETURN) NEGATIVE URN BARBITURATE (test code = BARBITURN) NEGATIVE URN BENZODIAZEPINE (test code = NEGATIVE BENZOURN) URN OPIATES (test code = OPIATURN) NEGATIVE URN PHENCYCLIDINE (PCP) (test code = NEGATIVE PHENCURN) Urine Source? Clean CatchBASIC METABOLIC [id number] 19:50:00 Test Item Value Reference Range Interpretation [...] 7.2 mg/dL 8.4-10.2 L CA) HEPATIC FUNCTION [id number] 19:50:00 Test Item Value Reference Range Interpretation [...] 38-126 N TOTAL (test code = ALKP) [id number] 19:50:00 Test Item Value Reference Range Interpretation Comments LIPASE (test code = LIP) 164 U/L 128-270 N [id number] 19:50:00 Test Item Value Reference Range Interpretation Comments TROPONIN-I (test code = TROPI) <0.015 ng/mL 0.00-0.056 N B-TYPE NATRIURETIC [id number] 19:49:00 Test Item Value Reference Range Interpretation Comments B-TYPE NATRIURETIC PEPTIDE (test 23.7 pg/mL 0-100 N code = BNP) CBC W/O [id number] 19:32:00 Test Item Value Reference Range Interpretation [...] = MPV) - XR TIBIA/FIBULA 2 V [id number] 17:38:00 Name: CASSANDRA TORRES [facility] : 1955 Age/S:63 /F [address] [facility] Unit#:[id number] Loc: [place] [address] Phys: Marietta Huynh MD Dis Date: PHONE #: [phone] Status: REG ER FAX #: [phone] Exam Date: 06/16/2019 Reason: fall, left rothman pain EXAMS: CPT CODE: [id number] XR TIBIA/FIBULA 2 V LT 17569 HISTORY: Fall and pain. COMPARISON: None available. Location: TH. 2 views of the left leg: No acute fracture or dislocation. Ankle and knee joints are narrowed mildly. No ankle or knee joint fluid. Mineralization and soft tissues are normal. IMPRESSION: No acute fracture or dislocation. at 1738 Reported and signed by: Aristides Giordano M.D. CC: Marietta Huynh MD; Amish De Anda MD Technologist: Mert Smith RT(R),CT [facility]nbu[facility] centert Data: 06/16/2019 (2683) t.THUR.TH4 Orig Print D/T: S: 06/16/2019 (7822) PAGE 1 Signed Report- SP SHUNTOGM [id number] 14:26:00 FAX: Martin Guzmán MD [phone] [place]: St: [facility] FAX: Amish Lai MD [phone] Name: CASSANDRA TORRES FRANCIS [facility] : 1955 Age/S: 63/F [address] [facility] Unit #: [id number] Loc: [address] [place] [address] Phys: Martin Guzmán MD Acct: [id number] Dis Date: Status: ADM IN PHONE #: [phone] Date: 06/07/2019 1342 FAX #: [phone] Reason: EVAL FOR SHUNT, DIZZY EXAMS: CPT CODE: [id number] SP [facility] [address] CLINICAL HISTORY: EVAL FOR SHUNT, DIZZY TECHNIQUE: Shunt series (AP/lateral skull; AP/lateral neck; AP chest; AP abdomen) COMPARISON: Head CT from 06/06/19; chest x-ray 05/18/19 FINDINGS: Ventriculoperitoneal shunt in place. Intracranial segment is intact and directed towards the midline from a right frontal approach. With exception of radiolucent valve, extracranial segment appears intact throughout its course. Distal tip is located within the left upper abdomen. IMPRESSION: Ventriculoperitoneal shunt is intact. LOCATION: LP Electronically Signed by Janis Stubbs D.O. on06/07/2019 at 1426 Reported and signed by: Janis Stubbs D.O. CC: Martin Guzmán MD; Amish De Anda MD Technologist: KAREEM SHAH RT(R) Trnscrd Date/Time/By: 06/07/2019 (4315) : By: [email or web address] Orig Print D/T: S: 06/07/2019 (4089) PAGE 1 Signed ReportCBC W/AUTO [id number] 05:30:00 Test Item Value Reference Range Interpretation [...] 0.00 K/mm3 0.0-0.1 N NRBC#) COMPREHENSIVE METABOLIC [id number] 05:24:00 Test Item Value Reference Range Interpretation [...] code = CHOLHDL) CHOL/H DL RATIOS: Risk Male Female1/2 AVERAGE 3.43 3.27AVERAG E 4.97 4.442X AVERAGE 9.55 7.053X AVERAGE 23.39 11.04 REFERENCE VALUE IS RELATED TO R ISK LEVELS ASRECOMM ENDED BY THE [facility] RT, LUNG, AND BLOOD INST. HDL CHOLESTEROL (test 27 mg/dL 40-60 L code = HDL) LIPOPROTEIN LDL (test 70 mg/dL 100-129 L ====== code = LDL) ======= Referen ce Interval: mg /dL mmol/L--------- ------- ------- ------O ptimal <100 <2.6Near/above optimal 100-129 2.6-3.3Borderli ne High 130-159 3.4-4.1 High 160-189 4.1-4.9 Very High >=190 >=4.9========= This LDL result is a direct measurement.=== ====== THYROID STIMULATING [id number] 05:24:00 Test Item Value Reference Range Interpretation Comments THYROID STIMULATING 2.550 uIU/mL 0.36-3.74 N TSH REFE RENCE HORMONE (test code = RANGES: EUTHYROID: TSH) 0.35 - 4.3 mIU/ mL HYPO : > 5.5 mI U/mL HYPER : < 0.35 mIU/mL CBC W/AUTO [id number] 05:23:00 Test Item Value Reference Range Interpretation [...] # (test code = BA#) K/mm3 0.0-0.2 [id number] 05:12:00 Test Item Value Reference Range Interpretation Comments GLYCOSYLATED HEMOGLOBIN 5.4 % HbA1 RODDY HALEY DIAGNOSIS: (HA1C) (test code = HbA1C GLYHGB) (%) ----- ----- Diab etic >6.4Prediabetes 5.7 - 6.4Normal <5. 7 ESTIMATED AVERAGE 108 MG/DL GLUCOSE (test code = EAG) COMPREHENSIVE METABOLIC [id number] 05:02:00 Test Item Value Reference Range Interpretation [...] code = LDL) mg/dL 100-129 THYROID STIMULATING [id number] 05:02:00 Test Item Value Reference Range Interpretation Comments THYROID STIMULATING HORMONE (test uIU/mL 0.36-3.74 code = TSH) [id number] 23:10:00 Test Item Value Reference Range Interpretation Comments TROPONIN-I (test code = TROPI) <0.015 ng/mL 0-0.045 N COMMENTS TO PLANER STONE: COLLECT 3 HOURS AFTER PREVIOUS SAMPLETROPONIN-I 2019-06-06 19:14:00 Test Item Value Reference Range Interpretation Comments TROPONIN-I (test code = TROPI) <0.015 ng/mL 0-0.045 N COMMENTS TO PLANER STONE: COLLECT 3 HOURS AFTER PREVIOUS SAMPLEURINALYSIS [id number] 12:55:00 Test Item Value Reference Range Interpretation [...] #/LPF FEW MUCU) Urine Source? Clean CatchURINALYSIS [id number] 12:48:00 Test Item Value Reference Range Interpretation [...] Urine Source? Clean Catch- XR CHEST 1 [id number] 12:46:00 FAX: Amish Lai MD [phone] [place]: B St: REG FAX: Lindsey An DO Name: CASSANDRA COLVIN [facility] : 1955 Age/S: 63/F [address] Unit #: [id number] Loc: [place] [address] Phys: Lindsey An DO Acct: [id number] Dis Date: Status: REG ER PHONE #: [phone] Exam Date: 06/06/2019 1227 FAX #: [phone] Reason: dizziness EXAMS: CPT CODE: [id number] XR CHEST 1 V 58615 HISTORY: Dizziness. COMPARISON: May 18, 2019. Location: [facility]. No acute infiltrates, effusion or congestion is noted. Cardiomegaly. 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 IMPRESSION: No acute infiltrates, effusion or congestion. at 1246 Reported and signed by: Aristides Giordano M.D. CC: Amish De Anda MD; Lindsey An DO Technologist: [place](R); Belkis HELM(R) Trnscrd Date/Time/By: 06/06/2019 (7916) : By: t.THUR.TH4 Orig Print D/T: S: 06/06/2019 (1556) PAGE 1 Signed ReportBASIC METABOLIC [id number] 12:35:00 Test Item Value Reference Range Interpretation [...] 9.1 mg/dL 8.5-10.1 N CA) HEPATIC FUNCTION [id number] 12:35:00 Test Item Value Reference Range Interpretation [...] range due ALKP) to change in reagent. [id number] 12:35:00 Test Item Value Reference Range Interpretation Comments TROPONIN-I (test code = TROPI) <0.015 ng/mL 0-0.045 N BASIC METABOLIC [id number] 12:30:00 Test Item Value Reference Range Interpretation [...] code = CA) mg/dL 8.5-10.1 HEPATIC FUNCTION [id number] 12:30:00 Test Item Value Reference Range Interpretation [...] TOTAL (test IUnit/L 45-117 code = ALKP) [id number] 12:30:00 Test Item Value Reference Range Interpretation Comments TROPONIN-I (test code = TROPI) ng/mL 0-0.045 CBC W/O [id number] 12:24:00 Test Item Value Reference Range Interpretation [...] fL 6.7-11.0 N = MPV) CBC W/O [id number] 12:21:00 Test Item Value Reference Range Interpretation [...] 6.7-11.0 = MPV) - CT HEAD/BRAIN W/O [id number] 11:04:00 Name: CASSANDRA TORRES [facility] : 1955 Age/S: 63 / F [address] [facility] Unit#: [id number] Loc: [place] [address] Phys: Lindsey An DO Acct: [id number] Dis Date: Status:REG ER PHONE #: [phone] Exam Date: 06/06/2019 1053 FAX #: [phone] Reason: dizziness EXAMS: CPT CODE: [id number] CT HEAD/BRAIN W/O CONT 35326 HISTORY: Dizziness. COMPARISON: None available. Location: [facility]. CT brain without contrast: Automated exposure control. No acute intracranial bleeds orextra-axial collections are noted. No acute territorial vascular infarction is noted. Shunt catheterfrom a high right parietal approach with the tip crossing the midline and residing within the left basal ganglia. Normal caliber ventricular system. The sulci, gyri, ventricles and subarachnoid spaces and the basilar cisterns are normal for patient's age. No herniation or hydrocephalus or midline shift is noted. Mild periventricular ischemic gliosis is noted. Age- appropriate atrophy is noted as well.Portions of the visualized paranasal sinuses are normal. No obvious bony calvarial defect is noted.IMPRESSION: No acute intracranial bleeds or extra-axial collections. Shunt catheter from a high right parietal approach with the tip crossing the midline and residing within the left basal ganglia. Normal caliber ventricular system. No acute territorial vascular infarction. No herniation or hydrocephalus or midline shift. Chronic white matter ischemic disease and atrophy . at 1104 Reported and signed by: Aristides Giordano M.D. PAGE 1 SignedReport (CONTINUED) Name: CASSANDRA TORRES [facility] : 1955 Age/S: 63 / F [address] [facility] Unit #: [id number] Loc: [place] [address] Phys: Lindsey An DO Acct: [id number] Date: Status: REG ER PHONE #: [phone] Exam Date: 06/06/2019 1053 FAX #: [phone] Reason: dizziness EXAMS: CPT CODE: [id number] CT HEAD/BRAIN W/O CONT 46864 (Continued) CC: Amish De Anda MD; Lindsey An DO Technologist:Tato Mayes RT(R),(MR),(CT); CTDI: DLP: Trnscb Date/Time: 06/06/2019 (1104) t.SDR.TH4 Orig Print D/T: S: 06/06/2019 (1107) PAGE 2 Signed ReportBASIC METABOLIC PANEL 2019-05-18 16:50:00 Test Item Value Reference Range Interpretation [...] OF TUBES HEMOLYZED. HYA 8673STUCK MULTIPLE TIMES ALREADY.V.LAB.MO 05/18/19 [id number] 16:50:00 Test Item Value Reference Range Interpretation Comments TROPONIN-I (test code = TROPI) <0.015 ng/mL 0-0.045 N PATIENT IS HARDSTICK FIRST SET OF TUBES HEMOLYZED. HYA 8673STUCK MULTIPLE TIMES ALREADY.V.LAB.MO 05/18/19 1535BASIC METABOLIC [id number] 16:41:00 Test Item Value Reference Range Interpretation [...] OF TUBES HEMOLYZED. HYA 8673STUCK MULTIPLE TIMES ALREADY.V.LAB.MO 05/18/19 [id number] 16:41:00 Test Item Value Reference Range Interpretation Comments TROPONIN-I (test code = TROPI) ng/mL 0-0.045 PATIENT IS HARDSTICK FIRST SET OF TUBES HEMOLYZED. HYA 8673STUCK MULTIPLE TIMES ALREADY.V.LAB.MO 05/18/19 1535B-TYPE NATRIURETIC [id number] 16:04:00 Test Item Value Reference Range Interpretation Comments B-TYPE NATRIURETIC PEPTIDE 38.56 pgram/mL 0-100 N (test code = BNP) PROTHROMBIN [id number] 15:43:00 Test Item Value Reference Range Interpretation [...] ion INR range Pulmonary embol ism treatment (2.0-3.0)Venous thrombosis treatmentVenous thrombosis prophylaxis (hi gh risk surgery)Prevent ion of systemic emboli sm from: Acute myocardial infa rction Valvular heart disease Atrial fibrillation Mechanical pros thetic heart valves (2.5-3.5) IS PATIENT ON ANTICOAGULANTS? NTHROMBOPLASTIN TIME [id number] 15:43:00 Test Item Value Reference Range Interpretation Comments THROMBOPLASTIN TIME PARTIAL 36.8 seconds 25.0-36.5 H (test code = PTT) IS PATIENT ON ANTICOAGULANTS? NCBC W/O [id number] 15:29:00 Test Item Value Reference Range Interpretation [...] fL 6.7-11.0 N = MPV) CBC W/O [id number] 15:27:00 Test Item Value Reference Range Interpretation [...] 6.7-11.0 = MPV) - XR CHEST 1 [id number] 14:39:00 FAX: Amish Lai MD [phone] [place]: B St: PRE FAX: Lindsey An DO Name: CASSANDRA COLVIN [facility] : 1955 Age/S: 63/F [address] Unit #: [id number] Loc: [place] [address] Phys: Lindsey An DO Acct: [id number] Dis Date: Status: PRE ER PHONE #: [phone] Exam Date: 05/18/2019 1432 FAX #: [phone] Reason: Shortness of Breath EXAMS: CPT CODE: [id number] XR CHEST 1 V 78659 HISTORY: Shortness of Breath TECHNIQUE: AP chest x-ray COMPARISON: 05/09/19 FINDINGS: No airspace consolidation or pleural effusion. Cardiomegaly. Tortuous thoracic aorta with vascular calcification. OUTSIDE MACHINIST HELPER shunt projected over the midline chest and upper abdomen. Degenerative changes of the spine. IMPRESSION: No acute findings or significant interval change.. LOCATION: LP at 1439 Reported and signed by: Janis Stubbs D.O. CC: Enriqueta De Anda MD; Lindsey An DO Technologist: KAREEM HELM(R) Trnscrd Date/Time/By: 05/18/2019 (1868): By: [email or web address] Orig Print D/T: S: 05/18/2019 (6381) PAGE 1 Signed ReportBASIC METABOLIC [id number] 11:52:00 Test Item Value Reference Range Interpretation [...] code = 8.7 mg/dL 8.5-10.1 N CA) [id number] 11:52:00 Test Item Value Reference Range Interpretation Comments TROPONIN-I (test code = TROPI) <0.015 ng/mL 0-0.045 N B-TYPE NATRIURETIC [id number] 11:51:00 Test Item Value Reference Range Interpretation Comments B-TYPE NATRIURETIC PEPTIDE (test 20.1 pg/mL 0-100 N code = BNP) CBC W/O [id number] 10:42:00 Test Item Value Reference Range Interpretation [...] fL 6.7-11.0 N = MPV) CBC W/O [id number] 10:34:00 Test Item Value Reference Range Interpretation [...] 6.7-11.0 = MPV) - XR CHEST 1 [id number] 09:35:00 FAX: Stuart Saldivar [phone] [place]: St: PRE FAX: Amish Lai MD [phone] ----- Name: CASSANDRA TORRES FRANCIS [facility] : 1955 Age/S: 63/F [address] [facility] Unit #: [id number] Loc: [place] [address] Phys: Stuart Spivey MD Acct: [id number] Dis Date: Status: PRE ER PHONE #: [phone] Exam Date: 05/09/2019 0925 FAX #: [phone] Reason: Shortness of Breath EXAMS: CPT CODE: [id number] XR CHEST 1 V 81714 REASON FOR EXAM: Shortness of Breath Exam Order Date: 05/09/2019 9:10 AMOrdering MRhonda: Stuart Spivey MD PROCEDURE: - XR CHEST 1 V COMPARISON: Chest x-ray February 04, 2018 FINDINGS: The lungs are clear. There is no pleural effusion or pneumothorax. Pulmonary vascularity is within normal limits. Cardiomediastinal silhouette is normal in size for technique. The mediastinal contours are within normal limits. Skeletal structures are within normal limits. Ventriculoperitoneal shunt catheter is unchanged in position. The visualized upper abdomen is within normal limits. I MPRESSION: No acute cardiopulmonary process. Location: [facility] at 0935 Reported and signed by: Seth Darling MD CC: Stuart Spivey MD; Amish De Anda MD Technologist: [place](R) Trnscrd Date/Time/By: 05/09/2019 (0910) : By: [email or web address] Orig Print D/T: S: 05/09/2019 (0128) PAGE 1 Signed ReportBASIC METABOLIC [id number] 23:08:00 Test Item Value Reference Range Interpretation [...] GFR) formula.Chronic kidney disease is defined as [facility] kidney damageor GFR <60 mL/min/1.73 m2 for >3 months. CREATININE (test code 1.10 mg/dL 0.55-1.02 H Note change in = CREAT) reference range due to change in reagent. BUN/CREATININE RATIO 7.3 10-20 L (test code = BUN/CREA) CALCIUM (test code = 9.3 mg/dL 8.5-10.1 N CA) BASIC METABOLIC [id number] 23:05:00 Test Item Value Reference Range Interpretation [...] (test code = CA) mg/dL 8.5-10.1 URINALYSIS [id number] 22:30:00 Test Item Value Reference Range Interpretation [...] NONE A BACU) Urine Source? Clean CatchURINALYSIS [id number] 11:50:00 Test Item Value Reference Range Interpretation [...] #/LPF FEW MUCU) Urine Source? Clean CatchURINALYSIS [id number] 11:49:00 Test Item Value Reference Range Interpretation [...] NONE BACU) Urine Source? Clean CatchBASIC METABOLIC [id number] 11:12:00 Test Item Value Reference Range Interpretation [...] GFR) formula.Chronic kidney disease is defined as [facility] kidney damageor GFR <60 mL/min/1.73 m2 for >3 months. CREATININE (test code 1.10 mg/dL 0.55-1.02 H Note change in = CREAT) reference range due to change in reagent. BUN/CREATININE RATIO 9.1 10-20 L (test code = BUN/CREA) CALCIUM (test code = 9.0 mg/dL 8.5-10.1 N CA) [id number] 11:12:00 Test Item Value Reference Range Interpretation Comments TROPONIN-I (test code = TROPI) <0.015 ng/mL 0-0.045 N BASIC METABOLIC [id number] 10:55:00 Test Item Value Reference Range Interpretation [...] CALCIUM (test code = CA) mg/dL 8.5-10.1 [id number] 10:55:00 Test Item Value Reference Range Interpretation Comments TROPONIN-I (test code = TROPI) ng/mL 0-0.045 CBC W/O [id number] 10:46:00 Test Item Value Reference Range Interpretation [...] fL 6.7-11.0 N = MPV) CBC W/O [id number] 10:45:00 Test Item Value Reference Range Interpretation [...] MPV) - XR FOOT 3 + V [id number] 05:39:00 FAX: Richie Le [place]: St: REG FAX: Amish Lai MD [phone] Name: CASSANDRA COLVIN [facility] : 1955 Age/S: 63/F [address] [facility] Unit #: [id number] Loc: [place] [address]Seyd: Richie Le MD Acct: [id number] Dis Date: Status: REG ER PHONE #: [phone] Exam Date: 11/01/2018 0505 FAX #: [phone] Reason: pain, distal EXAMS: CPT CODE: [id number] XR FOOT 3 + V LT [address]88 Location: T 18 Left foot x-ray, 3 views conducted on 11/01/18 CLINICAL HISTORY: Left foot pain FINDINGS: Do not see a fracture or stress fracture. Normal alignment is seen. Joint spaces are fairly well maintained. No appreciable calcaneal spurring is seen. Do not see any findings suggestive of AVN. IMPRESSION: Unremarkable left foot exam. at 0539 Reported and signed by: Mary Carmen Rivera M.D. CC: Richie Le MD; Amish De Anda MD Technologist: RT HERIBERTO Trnscrd Date/Time/By: 11/01/2018 (0539) : By: [email or web address] Orig Print D/T: S: 11/01/2018 (0610) PAGE 1 Signed ReportBASIC METABOLIC [id number] 12:58:00 Test Item Value Reference Range Interpretation [...] code = 8.4 mg/dL 8.5-10.1 L CA) [id number] 12:58:00 Test Item Value Reference Range Interpretation Comments PHOSPHORUS (test code = PHOS) 3.3 mg/dL 2.5-4.9 N [id number] 12:58:00 Test Item Value Reference Range Interpretation Comments MAGNESIUM (test code = MAG) 2.3 mg/dL 1.8-2.4 N THYROID STIMULATING [id number] 20:49:00 Test Item Value Reference Range Interpretation Comments THYROID STIMULATING 3.720 uIU/mL 0.36-3.74 N TSH REFE RENCE HORMONE (test code = RANGES: EUTHYROID: TSH) 0.35 - 4.3 mIU/ mL HYPO : > 5.5 mI U/mL HYPER : < 0.35 mIU/mL URINALYSIS [id number] 16:50:00 Test Item Value Reference Range Interpretation [...] A BACU) Urine Source? Clean CatchBASIC METABOLIC [id number] 15:40:00 Test Item Value Reference Range Interpretation [...] GFR) formula.Chronic kidney disease is defined as [facility] er kidney damageor GFR <60 mL/min/1.73 m2 for >3 months. CREATININE (test code 1.20 mg/dL 0.55-1.02 H Note change in = CREAT) reference range due to change in reagent. BUN/CREATININE RATIO 8.3 10-20 L (test code = BUN/CREA) CALCIUM (test code = 8.9 mg/dL 8.5-10.1 N CA) [id number] 15:40:00 Test Item Value Reference Range Interpretation Comments TROPONIN-I (test code = TROPI) <0.015 ng/mL 0-0.045 N BASIC METABOLIC [id number] 15:33:00 Test Item Value Reference Range Interpretation [...] code = CA) 8.9 mg/dL 8.5-10.1 N [id number] 15:33:00 Test Item Value Reference Range Interpretation Comments TROPONIN-I (test code = TROPI) ng/mL 0-0.045 CBC W/O [id number] 14:03:00 Test Item Value Reference Range Interpretation [...] fL 6.7-11.0 N = MPV) CBC W/O [id number] 14:01:00 Test Item Value Reference Range Interpretation [...] MPV) - XR FOOT 3 + V [id number] 07:52:00 FAX: Stuart Saldivar [phone] [place]: [facility], [place]: [facility] FAX: Amish Lai MD [phone] ---- Name: CASSANDRA TORRES FRANCIS [facility] : 1955 Age/S: 62/F [address] Unit #: [id number] Loc: MAX PageadenJUANITA melara [address] Phys: Stuart Spivey MD Acct: [id number] Dis Date: Status: REG ER PHONE #: Exam Date: 04/28/2018 0742 FAX #: [phone] Reason: small toe infeection EXAMS: CPT CODE:[id number] XR FOOT 3 + [place] [address] HISTORY: Small to infection. COMPARISON: April 18, 2018. 3 views of the left foot: No acute fracture or dislocation. 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 Narrowed DIP and the PIP joint spaces. No erosive or destructive changes are noted. Bone mineralization is normal. Mild soft tissue swelling of the 5th MTP joint. IMPRESSION: No acute fracture or dislocation or erosive or destructive changes. Soft tissue swelling of the 5th MTP joint. at 0752 Reported and signed by: Aristides Giordano M.D. CC: Stuart Spivey MD; Amish De Anda MD Technologist: OTIS DOAN RT (R) Trnscrd Date/Time/By: 04/28/2018 (0752) : By: [email or web address] Orig Print D/T: S: 04/28/2018 (0756) PAGE 1 Signed Report BASIC METABOLIC [id number] 07:39:00 Test Item Value Reference Range Interpretation [...] 8.6 mg/dL 8.5-10.1 N CA) BASIC METABOLIC [id number] 07:22:00 Test Item Value Reference Range Interpretation [...] code = CA) mg/dL 8.5-10.1 CBC W/AUTO [id number] 07:06:00 Test Item Value Reference Range Interpretation [...] 0.00 K/mm3 0.0-0.1 N NRBC#) CHEMISTRY 8 [id number] 19:59:00 Test Item Value Reference Range Interpretation [...] >60 LL code = GFRBED) CHEMISTRY 8 [id number] 19:59:00 Test Item Value Reference Range Interpretation [...] LL (test code = GFRBED) CBC W/AUTO [id number] 18:08:00 Test Item Value Reference Range Interpretation [...] NO = MDIFF) - XR TOE(S) 2+V [id number] 17:22:00 FAX: Alex Lay MD [phone] [place]: [facility], [place]: [facility] FAX: Amish Lai MD [phone] Name: CASSANDRA TORRES [facility] : 1955 Age/S: 62/F [address] Unit #: [id number] Loc: JUANITA [place] [address] Phys: Alex Lay MD Acct: [id number] Dis Date: Status: REG ER PHONE #: [phone] Exam Date: 04/18/2018 1721 FAX #: [phone] Reason: L piny toe pain EXAMS: CPT CODE: [id number] XR TOE(S) 2+[place] LT [address] REASON FOR EXAM: L piny toe pain EXAM ORDER DATE: 04/18/2018 5:00 PM Ordering M.Jeannine: Alex Lay MD PROCEDURE: - XR TOE(S) 2+V LT FINDINGS: 2 views of the left toes were obtained. The osseous structures are unremarkable in size and shape. The joint spaces are maintained. No evidence of fracture. The phalanges are intact. IMPRESSION: Unremarkable left toes at 1722 Reported and signed by: Prasad Nieto M.D. CC: Alex Lay MD; Amish De Anda MD Technologist: ELLY CASTRO RT(R) Trnscrd Date/Time/By: 04/18/2018 (172) : By: [email or web address] Orig Print D/T: S: 04/18/2018 (6040) PAGE 1 Signed ReportBASIC METABOLIC PANEL 2018-04-01 14:43:00 Test Item Value Reference Range Interpretation [...] 8.5 mg/dL 8.5-10.1 N CA) BASIC METABOLIC [id number] 14:29:00 Test Item Value Reference Range Interpretation [...] CA) 8.5 mg/dL 8.5-10.1 N CBC W/AUTO [id number] 14:02:00 Test Item Value Reference Range Interpretation [...] MDIFF) - XR FOOT 3 + V [id number] 11:53:00 FAX: Alex Lay MD [phone] [place]: [address]: PRE Name: CASSANDRA TORRES [facility] : 1955 Age/S: 62/F [address] Unit #: [id number] Loc: JUANITA [place] [address] [id number] Dis Date: Status: PRE ER PHONE #: [phone] Exam Date: 04/01/2018 1143 FAX #: [phone] Reason: last toe toes red EXAMS: CPT CODE: [id number] XR FOOT 3 + V LT [address]173 HISTORY: Infection. COMPARISON: None available. 3 views of the right foot: No acute fracture or dislocation. 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 Narrowed DIP and the PIP joint spaces. Noerosive or destructive changes. Mineralization is normal. Soft tissues appear within normal limits.IMPRESSION: No acute fracture or dislocation. No erosive or destructive changes. at 1153 Reported and signed by: Aristides Giordano M.D. CC: Alex Lay MD Technologist: TITI LOREDO JR; STUDENT TECHNOLOGIST Trnscrd Date/Time/By: 04/01/2018 (6269) : By: [email or web address] Orig Print D/T: S: 04/01/2018 (5334) PAGE 1 Signed Report
[2022-02-10 12:17] LABS: SARS-COV-2 RT PCR NEGATIVE (NEGATIVE)
--- NOTE | 2022-02-10 12:20 | ER ---
Nurse's Notes [facility] Name: Rachel Butt Age: 66 yrs Sex: Female : 1955 Arrival Date: 02/10/2022 Time: 10:04 Bed IW1 Private MD: Diagnosis: COPD/ Chronic obstructive pulmonary disease with (acute) exacerbation Presentation: 02/10 11:00 Chief complaint: Patient states: painful cough that began 3 days ago. Coronavirus ss screen: Client presents with at least one sign or symptom that may indicate coronavirus-19. Standard/surgical mask placed on the client. Ebola Screen: Patient denies exposure to infectious person. Patient denies travel to an Ebola-affected area in the 21 days before illness onset. Initial Sepsis Screen: Does the patient meet any 2 criteria? No. Patient's initial sepsis screen is negative. Does the patient have a suspected source of infection? No. Patient's initial sepsis screen is negative. Risk Assessment: Do you want to hurt yourself or someone else? Patient reports no desire to harm self or others. Onset of symptoms was February 07, 2022. 11:00 Method Of Arrival: EMS: [facility] ss 11:00 Acuity: KRISTEN 3 ss Triage Assessment: 11:06 Respiratory: Reports shortness of breath cough that is Onset: The symptoms/episode ap3 began/occurred. Historical: - Allergies: 11:02 Codeine; ss 11:02 Flagyl; ss 11:02 Zantac; ss - PMHx: 11:02 Asthma; Chronic obstructive lung disease; Hypercholesterolemia; Hypertensive disorder; ss - PSHx: 11:02 Stented artery; ss - Immunization history:: Client reports receiving the 2nd dose of the Covid vaccine. - Social history:: Smoking status: Patient reports the use of cigarette tobacco products, smokes one pack cigarettes per day. Screenin:06 Abuse screen: Denies threats or abuse. Nutritional screening: No deficits noted. ap3 Tuberculosis screening: No symptoms or risk factors identified. Assessment: 11:05 Reassessment: patient refusing COVID/FLU/RSV swab. ap3 11:06 Cardiovascular: Patient's skin is warm and dry. Respiratory: Airway is patent ap3 Respiratory effort is even, unlabored. 11:06 Reassessment: patient states that she was around her friend that was sick, and she ap3 started having the same symptoms they were having three days ago. 13:38 Reassessment: attempting to medicate and discharge patient at this time; patient is jh5 unable to be located in the lobby. Vital Signs: 11:00 BP 132 / 54; Pulse 87; Resp 17; Temp 97.2(TE); Pulse Ox 100% on R/A; Pain 5/10; ss ED Course: 10:04 Patient arrived in ED. cc5 10:36 Arlet Wood FNP-C [facility]. snw 10:36 Hemant Pretty MD is Attending Physician. snw 11:02 Triage completed. ss 11:02 Arm band placed on left wrist. ss 12:32 Chest Pa And Lat (2 Views) XRAY In Process Unspecified. EDMS 13:30 Patient's name was called from ER lobby. No response. Unable to locate patient. Will jh5 disposition as left without being seen by a provider. 13:38 Patient's name was called from ER lobby. No response. Unable to locate patient. Will jh5 disposition as left without being seen by a provider. Administered Medications: No medications were administered Outcome: 12:19 Discharge ordered by . snw 13:38 Patient left the ED. 5 Signatures: Dispatcher [employer] EDMS Arlet Wood FNP-C FNP-Soila Jones RN RN Oneida Ugalde RN HUI ap3 Elma Gabriel RN RN [facility] Jennie Rubio [facility]
--- NOTE | 2022-02-10 12:20 | EDPHYS ---
Physician Documentation [facility] Name: Rachel Butt Age: 66 yrs Sex: Female : 1955 Arrival Date: 02/10/2022 Time: 10:04 Bed IW1 Private MD: ED Physician Hemant Pretty HPI: 02/10 12:22 This 66 yrs old Female presents to ER via EMS with complaints of Breathing Difficulty. snw 12:22 The patient has shortness of breath at rest. Onset: The symptoms/episode began/occurred snw acutely. Duration: The symptoms are continuous. Associated signs and symptoms: Pertinent positives: bodyaches. Severity of symptoms: At their worst the symptoms were moderate. It is unknown whether or not the patient has had similar symptoms in the past. The patient has not recently seen a physician. Historical: - Allergies: 11:02 Codeine; ss 11:02 Flagyl; ss 11:02 Zantac; ss - PMHx: 11:02 Asthma; Chronic obstructive lung disease; Hypercholesterolemia; Hypertensive disorder; ss - PSHx: 11:02 Stented artery; ss - Immunization history:: Client reports receiving the 2nd dose of the Covid vaccine. - Social history:: Smoking status: Patient reports the use of cigarette tobacco products, smokes one pack cigarettes per day. ROS: 11:22 Eyes: Negative for injury, pain, redness, and discharge, ENT: Negative for injury, snw pain, and discharge, Neck: Negative for injury, pain, and swelling, Cardiovascular: Negative for chest pain, palpitations, and edema. 11:22 Back: Negative for injury and pain, : Negative for injury, bleeding, discharge, and swelling, MS/Extremity: Negative for injury and deformity, Skin: Negative for injury, rash, and discoloration, Neuro: Negative for headache, weakness, numbness, tingling, and seizure. 11:22 Constitutional: Positive for body aches, chills, fatigue, fever, malaise, poor PO intake. 11:22 Respiratory: Positive for cough, shortness of breath, at rest. 11:22 Abdomen/GI: Positive for nausea and vomiting. Exam: 11:21 Head/Face: Normocephalic, atraumatic. Eyes: Pupils equal round and reactive to light, snw extra-ocular motions intact. Lids and lashes normal. Conjunctiva and sclera are non-icteric and not injected. Cornea within normal limits. Periorbital areas with no swelling, redness, or edema. 11:21 Neck: Trachea midline, no thyromegaly or masses palpated, and no cervical lymphadenopathy. Supple, full range of motion without nuchal rigidity, or vertebral point tenderness. No Meningismus. Chest/axilla: Normal chest wall appearance and motion. Nontender with no deformity. No lesions are appreciated. Cardiovascular: Regular rate and rhythm with a normal S1 and S2. No gallops, murmurs, or rubs. Normal PMI, no JVD. No pulse deficits. 11:21 Back: No spinal tenderness. No costovertebral tenderness. Full range of motion. Skin: Warm, dry with normal turgor. Normal color with no rashes, no lesions, and no evidence of cellulitis. MS/ Extremity: Pulses equal, no cyanosis. Neurovascular intact. Full, normal range of motion. Neuro: Awake and alert, GCS 15, oriented to person, place, time, and situation. Cranial nerves II-XII grossly intact. Motor strength 5/5 in all extremities. Sensory grossly intact. Cerebellar exam normal. Normal gait. 11:21 Constitutional: The patient appears awake, anxious, restless, uncomfortable. 11:21 ENT: Nose: Nasal mucosa: cracked, dry, edematous, Mouth: is normal, Voice: is hoarse. 11:21 Respiratory: the patient does not display signs of respiratory distress, Respirations: accessory muscle usage, shallow respirations, that is mild, Breath sounds: rhonchi, that are moderate, are heard diffusely. 11:21 Abdomen/GI: Inspection: abdomen appears normal. Vital Signs: 11:00 BP 132 / 54; Pulse 87; Resp 17; Temp 97.2(TE); Pulse Ox 100% on R/A; Pain 5/10; ss MDM: 11:00 Patient medically screened. snw 12:21 Data reviewed: vital signs, nurses notes. Data interpreted: Pulse oximetry: on room air snw is 100 %. Interpretation: normal. Counseling: I had a detailed discussion with the patient and/or guardian regarding: the historical points, exam findings, and any diagnostic results supporting the discharge/admit diagnosis, lab results, radiology results, the need for outpatient follow up, to return to the emergency department if symptoms worsen or persist or if there are any questions or concerns that arise at home. Special discussion: Based on the history and exam findings, there is no indication for further emergent testing or inpatient evaluation. I discussed with the patient/guardian the need to see the primary care provider for further evaluation of the symptoms. I discussed with the patient/guardian the need to see the railroad car painter for further evaluation of the symptoms. 02/10 11:03 Order name: COVID-19/FLU A+B; Complete Time: 12:18 ss 02/10 12:04 Order name: Chest Pa And Lat (2 Views) XRAY; Complete Time: 12:43 snw Administered Medications: No medications were administered Disposition: 19:19 Co-signature as Attending Physician, Hemant Pretty MD I agree with the assessment and rt plan of care. Disposition Summary: 02/10/22 12:19 Discharge Ordered Location: Home snw Condition: Stable snw Diagnosis - COPD/ Chronic obstructive pulmonary disease with (acute) exacerbation snw Followup: snw - With: Emergency Department - When: As needed - Reason: Worsening of condition Followup: snw - With: Private Physician - When: 2 - 3 days - Reason: Recheck today's complaints, Continuance of care, Re-evaluation by your physician Discharge Instructions: - Discharge Summary Sheet snw - Chronic Bronchitis, Adult snw - Chronic Obstructive Pulmonary Disease Exacerbation snw - Managing the Challenge of Quitting Smoking snw - Smoking Tobacco Information, Adult snw Forms: - Medication Reconciliation Form snw - Thank You Letter snw - Antibiotic Education snw - Prescription Opioid Use snw Prescriptions: - Tessalon Perles 100 mg Oral Capsule - take 1 capsule by ORAL route every 8 hours As needed; 15 capsule; Refills: 0, snw Product Selection Permitted - Zithromax 500 mg Oral Tablet - take 1 tablet by ORAL route once daily for 5 days; 5 tablet; Refills: 0, snw Product Selection Permitted - Prednisone 20 mg Oral Tablet - take 2 tablets by ORAL route once daily for 5 days; 10 tablet; Refills: 0, snw Product Selection Permitted Signatures: Dispatcher [employer] Arlet Ortega FNP-C BEAUTY CULTURIST-Reinaldow Soila Kennedy RN RN ss Oneida Ugalde RN RN ap3 Hemant Pretyt MD MD rt
--- NOTE | 2022-02-10 12:42 | RAD REPORT ---
EXAM DESCRIPTION: RAD - Chest Pa And Lat (2 Views) - 02/10/2022 12:30 pm CLINICAL HISTORY: COPD COMPARISON: None TECHNIQUE: Frontal and lateral views of the chest were obtained. FINDINGS: The lungs are clear of a focal process. Failure and volume overload are not suspected. INDUSTRIAL ELECTRICAL TECHNICIAN shunt tubing overlies the midline chest and upper abdomen. Mediastinal and hilar regions are within normal range. Heart size is normal and central vasculature is within normal limits. No pleural effusion or pneumothorax seen. No acute bony finding noted. N o aortic abnormality. IMPRESSION: Baseline study felt to be without acute cardiopulmonary finding.
[2022-02-10] MEDS ORDERED: predniSONE 20 MG TAB ONE (13:35)
[2022-02-10] MEDS ORDERED: CETIRIZINE HCL 5 MG TABLET ONE (13:35)
[2022-02-10 15:10] VITALS: BP 132/54; TEMP 97.2; O2SAT 100
== END 2022-02-10 13:38 | disposition home or self-care (01) ==
LOC: ER 10:02
DX: J44.1 Chronic obstructive pulmonary disease with (acute) exacerbation (principal); I10 Essential (primary) hypertension; F17.210 Nicotine dependence, cigarettes, uncomplicated; Z20.822 Contact with and (suspected) exposure to COVID-19; Z88.5 Allergy status to narcotic agent; Z88.8 Allergy status to other drugs, medicaments and biological substances
CPT/HCPCS: 0240U; 71046; 99283; J7512